=== PATIENT | female | born 1960 | race Caucasian/White ===

== ENCOUNTER 2017-04-19 10:55 | Emergency (ER) | payer MEDICAID, MEDICARE, OTHER ==
[~2017-04-19] VITALS: Ht 167.6 cm; Wt 55.0 kg
[~2017-04-19 10:55] MED LIST: BUSP10TA PO; ENAL10TA PO; IPRA17I INH; LORA-392 PO; PROZ20CA11 PO; SYMB160A INH; TRAM50TA PO; TRAZ50TA12 PO; VENTAER INH
[2017-04-19 10:59] VITALS: BP 106/59; PULSE 112; RESP 17; TEMP 98.4; O2SAT 91
[2017-04-19] MEDS ORDERED: CLIN1CAP6 PO (15:43)
--- NOTE | 2017-04-19 15:45 | PD ---
HPI Chief Complaint: Skin Problem Time Seen by Provider: 14:01 Travel History International Travel<30 days: No Contact w/Intl Traveler<30days: No Traveled to known affect area: No History of Present Illness HPI 56-year-old female presents emergency department for evaluation of facial laceration. Patient reports she tripped and fell this morning around 7 AM falling to the floor hitting her chin on a piece of furniture. She denies loss of consciousness. She is not anticoagulated. She reports pain only in the soft tissue of the laceration. She has no bony facial tenderness. No malocclusion. No cervical spine tenderness. No headache. PFSH Past Medical History Arthritis: Yes Asthma: Yes Autoimmune Disease: No Blood Disorders: No Anxiety: Yes Depression: No Heart Rhythm Problems: No Cancer: No Cardiovascular Problems: Yes High Cholesterol: No Chemotherapy: No Chest Pain: No Congestive Heart Failure: No COPD: No Cerebrovascular Accident: No Diabetes: No Diminished Hearing: No Endocrine: No GERD: No Genitourinary: No Headaches: Yes Hepatitis: No Hiatal Hernia: No Hypertension: Yes Immune Disorder: No Kidney Stones: No Medical other: Yes (HX SILICONE GRANULOMAS (BREASTS)/ HIPS) Musculoskeletal: Yes (ARTHRITIS, ASEPTIC NECROSIS HIPS) Neurologic: No Psychiatric: Yes (DEPRESSION, ANXIETY) Reproductive: No Respiratory: Yes (COPD) Migraines: No Radiation Therapy: No Renal Failure: No Seizures: No Sickle Cell Disease: No Sleep Apnea: No Thyroid Disease: No Ulcer: No Menopausal: Yes Past Surgical History Abdominal Surgery: No AICD: No Arteriovenous Shunt: No Body Medical Devices: BREASTS Cardiac Surgery: No Ear Surgery: Yes Endocrine Surgery: No Eye Surgery: No Genitourinary Surgery: No Gynecologic Surgery: Yes Insulin Pump: No Joint Replacement: Yes (LEFT HIP & Right Hip) Oral Surgery: Yes (TONSILLECTOMY) Pacemaker: No Thoracic Surgery: Yes (BILATERAL RADICAL MASTECTOMY/ IMPLANTS) Tonsillectomy: Yes Other Surgery: Yes (SEVERAL RECONSTRUCTIONS OF BREAST) Social History Alcohol Use: Yes (DAILY) Tobacco Use: Yes Substance Use: Yes (marijuana) Allergies-Medications (Allergen,Severity, Reaction): Coded Allergies: Fish Containing Products (Unverified Allergy, Severe, swelling, 02/23/17) penicillin G (Unverified Allergy, Severe, RASH, SWELLING,DIFFICULTY BREATHING, 02/23/17) Reported Meds & Prescriptions Reported Meds & Active Scripts Active Clindamycin (Clindamycin HCl) 300 Mg Cap 300 Mg PO TID 7 Days Ventolin Hfa 18 GM Inh (Albuterol Sulfate) 90 Mcg/Act Aer 2 Puff INH Q6H PRN Symbicort Inh (Budesonide/Formoterol Fumarate) 160-4.5 Mcg/Act Aero 2 Puff INH Q12HR Atrovent HFA 12.9 GM Inh (Ipratropium [place]) 17 Mcg/Act Aer 2 Puff INH TID Prozac (Fluoxetine HCl) 20 Mg Cap 20 Mg PO DAILY Trazodone (Trazodone HCl) 50 Mg Tab 50 Mg PO HS Buspirone (Buspirone HCl) 10 Mg Tab 10 Mg PO BID Ativan (Lorazepam) 0.5 Mg Tab 0.5 Mg PO DAILY PRN Enalapril (Enalapril Maleate) 10 Mg Tab 10 Mg PO BID Reported Tramadol (Tramadol HCl) 50 Mg Tab 50 Mg PO Q4H PRN Review of Systems Except as stated in HPI: all other systems reviewed are Neg Physical Exam Narrative GENERAL: [Alert well-appearing female in no acute distress.] SKIN: Focused skin assessment warm/dry. 7 cm laceration right lower face HEAD: Atraumatic. Normocephalic. EYES: Pupils equal and round. No scleral icterus. No injection or drainage. EOMs intact ENT: No nasal bleeding or discharge. Mucous membranes pink and moist. NECK: Trachea midline. No JVD. No cervical midline tenderness. CARDIOVASCULAR: Regular rate and rhythm. No murmur appreciated. RESPIRATORY: No accessory muscle use. Clear to auscultation. Breath sounds equal bilaterally. GASTROINTESTINAL: Abdomen soft, non-tender, nondistended. Hepatic and splenic margins not palpable. MUSCULOSKELETAL: No obvious deformities. No clubbing. No cyanosis. No edema. NEUROLOGICAL: Awake and alert. No obvious cranial nerve deficits. Motor grossly within normal limits. Normal speech. PSYCHIATRIC: Appropriate mood and affect; insight and judgment normal. Data Data Last Documented VS Vital Signs Date Time Temp Pulse Resp B/P (MAP) Pulse Ox O2 Delivery O2 Flow Rate FiO2 04/19/17 10:59 98.4 112 17 106/59 (75) 91 MDM Medical Decision Making Medical Screen Exam Complete: Yes Emergency Medical Condition: Yes Differential Diagnosis facial laceration, unlikely ICH, unlikely facial bone fx Narrative Course 56 -year-old female presents emergency department for evaluation of facial laceration. Patient reports she tripped and fell this morning around 7 AM falling to the floor hitting her chin on a piece of furniture. She denies loss of consciousness. She is not anticoagulated. She reports pain only in the soft tissue of the laceration. She has no bony facial tenderness. No malocclusion. No cervical spine tenderness. No headache. She has a normal neurologic exam. CT scans were offered for which patient declined. She was made fully aware of the risks of missed injuries which include intracranial hemorrhage or facial bone fracture or cervical spine fracture which could lead to permanent disability and/or . She still opts for no CT scans. She has a a 7 cm laceration to the right lower aspect of the face involving the chin. Laceration repair performed. Patient advised to follow up with PCP for recheck in 2 days. Procedures Procedure Narrative LACERATION LOCATION: Facial right lower chin LENGTH: 7 cm NUMBER OF STITCHES/ARON: 9 REPAIR: The area of the laceration was prepped with Betadine and sterilely draped. The laceration was infiltrated with 1% lidocaine. The wound was copiously irrigated and explored without evidence of foreign body, tendon injury or neurovascular injury. The wound was closed using 6-0 Ethilon. This was a single layer repair. A sterile dressing was applied. The patient was advised to keep the dressing clean and dry. Patient tolerated the procedure well. Diagnosis Primary Impression: Facial laceration Qualified Codes: S01.81XA - Laceration without foreign body of other part of head, initial encounter Referrals: Primary Care Physician Additional Instructions: Sutures need to be removed in 7 days. Follow-up with her primary doctor for recheck. Return to emergency department if he developed new or worsening symptoms such as severe increasing pain, headache, nausea/vomiting, numbness or tingling in the extremities Scripts Clindamycin (Clindamycin) 300 Mg Cap 300 MG PO TID for Infection for 7 Days, CAP 0 Refills Prov: Elba Roth 04/19/17 Disposition: 01 DISCHARGE HOME Condition: Stable Elba Roth Apr 19, 2017 15:45
== END 2017-04-19 16:06 | disposition home or self-care (01) ==
LOC: NEPD 10:55
DX: S01.81XA Laceration without foreign body of other part of head, initial encounter (principal); I10 Essential (primary) hypertension; Z72.0 Tobacco use; Z87.39 Personal history of other diseases of the musculoskeletal system and connective tissue; Z87.09 Personal history of other diseases of the respiratory system; Z86.59 Personal history of other mental and behavioral disorders; Z86.79 Personal history of other diseases of the circulatory system; W01.190A Fall on same level from slipping, tripping and stumbling with subsequent striking against furniture, initial encounter
CPT/HCPCS: 12014

== ENCOUNTER 2017-04-28 11:39 | Emergency (ER) | payer MEDICAID ==
[~2017-04-28] VITALS: Ht 167.6 cm; Wt 55.0 kg
[~2017-04-28 11:39] MED LIST changes: +CLIN1CAP6 PO
[2017-04-28 11:41] VITALS: BP 108/75; PULSE 119; RESP 20; TEMP 98.7; O2SAT 96
--- NOTE | 2017-04-28 12:04 | PD ---
HPI Chief Complaint: Wound/Suture/Staple Re-Check Time Seen by Provider: 12:02 Travel History International Travel<30 days: No Contact w/Intl Traveler<30days: No Traveled to known affect area: No History of Present Illness HPI 56-year-old female presents to emergency department requesting suture removal from laceration to her chin that occurred last Wednesday. Sutures were placed last Wednesday. Denies drainage from the wound site. She denies fever, vomiting. No known aggravating or relieving factors. Symptoms are mild in severity. Has no other medical complaints. Allergies to fish continue products and penicillin. Patient's heart rate is elevated in the ER and she denies chest pain, shortness of breath. Says her heart rate is elevated because she is currently withdrawing from Xanax. States she changed PCPs and they took her off the Xanax. Patient is jittery and says she is always jittery. Patient also smells of alcohol. She has no other medical complaints. No other modifying factors or associated signs and symptoms. PFSH Past Medical History Arthritis: Yes Asthma: Yes Autoimmune Disease: No Blood Disorders: No Anxiety: Yes Depression: No Heart Rhythm Problems: No Cancer: No Cardiovascular Problems: Yes High Cholesterol: No Chemotherapy: No Chest Pain: No Congestive Heart Failure: No COPD: No Cerebrovascular Accident: No Diabetes: No Diminished Hearing: No Endocrine: No GERD: No Genitourinary: No Headaches: Yes Hepatitis: No Hiatal Hernia: No Hypertension: Yes Immune Disorder: No Kidney Stones: No Musculoskeletal: Yes (ARTHRITIS, ASEPTIC NECROSIS HIPS) Neurologic: No Psychiatric: Yes (DEPRESSION, ANXIETY) Reproductive: No Respiratory: Yes (COPD) Migraines: No Radiation Therapy: No Renal Failure: No Seizures: No Sickle Cell Disease: No Sleep Apnea: No Thyroid Disease: No Ulcer: No Menopausal: Yes Past Surgical History Abdominal Surgery: No AICD: No Arteriovenous Shunt: No Body Medical Devices: BREASTS Cardiac Surgery: No Ear Surgery: Yes Endocrine Surgery: No Eye Surgery: No Genitourinary Surgery: No Gynecologic Surgery: Yes Insulin Pump: No Joint Replacement: Yes (LEFT HIP & Right Hip) Oral Surgery: Yes (TONSILLECTOMY) Pacemaker: No Thoracic Surgery: Yes (BILATERAL RADICAL MASTECTOMY/ IMPLANTS) Tonsillectomy: Yes Other Surgery: Yes (SEVERAL RECONSTRUCTIONS OF BREAST) Social History Alcohol Use: Yes (DAILY) Tobacco Use: Yes Substance Use: Yes (marijuana) Allergies-Medications (Allergen,Severity, Reaction): Coded Allergies: Fish Containing Products (Unverified Allergy, Severe, swelling, 04/28/17) penicillin G (Unverified Allergy, Severe, RASH, SWELLING,DIFFICULTY BREATHING, 04/28/17) Reported Meds & Prescriptions Reported Meds & Active Scripts Active Clindamycin (Clindamycin HCl) 300 Mg Cap 300 Mg PO TID 7 Days Ventolin Hfa 18 GM Inh (Albuterol Sulfate) 90 Mcg/Act Aer 2 Puff INH Q6H PRN Symbicort Inh (Budesonide/Formoterol Fumarate) 160-4.5 Mcg/Act Aero 2 Puff INH Q12HR Atrovent HFA 12.9 GM Inh (Ipratropium [place]) 17 Mcg/Act Aer 2 Puff INH TID Prozac (Fluoxetine HCl) 20 Mg Cap 20 Mg PO DAILY Trazodone (Trazodone HCl) 50 Mg Tab 50 Mg PO HS Buspirone (Buspirone HCl) 10 Mg Tab 10 Mg PO BID Ativan (Lorazepam) 0.5 Mg Tab 0.5 Mg PO DAILY PRN Enalapril (Enalapril Maleate) 10 Mg Tab 10 Mg PO BID Reported Tramadol (Tramadol HCl) 50 Mg Tab 50 Mg PO Q4H PRN Review of Systems Except as stated in HPI: all other systems reviewed are Neg Physical Exam Narrative GENERAL: Well-nourished, well-developed female patient, in no acute distress; jittery, smells of EtOH; afebrile, nontoxic-appearing SKIN: Warm and dry. Right chin area with laceration that is well approximated and sutures intact; without erythema, edema, drainage. No signs of infection. HEAD: Atraumatic. Normocephalic. EYES: Pupils equal and round. No scleral icterus. No injection or drainage. ENT: Mucosa pink and moist. Airway patent. NECK: Trachea midline. CARDIOVASCULAR: Regular rate. RESPIRATORY: No accessory muscle use. GASTROINTESTINAL: Flat. MUSCULOSKELETAL: No obvious deformities. No clubbing. No cyanosis. No edema. NEUROLOGICAL: Awake and alert. Oriented 3. No obvious cranial nerve deficits. Motor grossly within normal limits. Normal speech. PSYCHIATRIC: Appropriate mood and affect; insight and judgment normal. Data Data Last Documented VS Vital Signs Date Time Temp Pulse Resp B/P (MAP) Pulse Ox O2 Delivery O2 Flow Rate FiO2 04/28/17 11:41 98.7 119 20 108/75 (86) 96 Room Air Orders Orders Ed Discharge Order (04/28/17 12:02) MDM Medical Decision Making Medical Screen Exam Complete: Yes Emergency Medical Condition: Yes Medical Record Reviewed: Yes Differential Diagnosis Counter for suture removal, medical clearance, wound recheck Narrative Course 56-year-old female presents for encounter for suture removal from her chin. Sutures were placed last Wednesday. No signs of infection. Sutures removed. Patient tolerated well. Patient's heart rate is elevated and she is jittery. She says she has recently been taken off Xanax and is always jittery. She denies chest pain or shortness of breath. Heart rate recheck is approximately 100-110bpm. The patient also smells of EtOH. Patient's heart rate was also elevated at 112bpm on April 19 when she was seen here. I feel her elevated heart rate is a social issue and patient is stable for discharge. Patient ambulated on her own from the emergency department. Instructed patient to follow up with primary care provider. Patient verbalizes understanding and agreement with treatment plan. Patient is medically cleared and stable for discharge. Discussed reasons to return to the emergency department. Patient agrees with treatment plan. The patients vital signs are stable and the patient is stable for outpatient follow-up and treatment. Patient discharged home, stable and in no acute distress. Diagnosis Primary Impression: Encounter for removal of sutures Referrals: Primary Care Physician Patient Instructions: General Instructions, Stitches Removal (ED) Additional Instructions: Keep area clean and dry Vaseline or Aquaphor as needed for continued wound care Follow up with primary care provider Return to the emergency department immediately for worsening of symptoms Med/Other Pt SpecificInfo: No Meds Exist/No RX given Disposition: 01 DISCHARGE HOME Condition: Stable Yuki Sotelo Apr 28, 2017 12:04
== END 2017-04-28 12:30 | disposition home or self-care (01) ==
LOC: NEPK 11:39
DX: Z48.02 Encounter for removal of sutures (principal)
CPT/HCPCS: 99281

== ENCOUNTER → 2017-06-17 | Outpatient (CLI) | payer MEDICAID ==
[~2017-06-17] MED LIST changes: -CLIN1CAP6 PO; +CLIN300C5 PO
--- NOTE | 2017-06-17 16:19 | RADRPT ---
EXAM DATE/TIME: 06/17/2017 13:28 [facility] COMPARISON: No previous studies available for comparison. INDICATIONS : Increase in shortness of breath in the last few weeks. MEDICAL HISTORY : Chronic obstructive pulmonary disease. asthma SURGICAL HISTORY : None. ENCOUNTER: Initial ACUITY: 2 weeks PAIN SCORE: 0/10 LOCATION: Bilateral chest FINDINGS: PA and lateral views of the chest demonstrate the lungs to be symmetrically aerated without evidence of mass, infiltrate or effusion. The cardiomediastinal contours are unremarkable. Osseous structure s are intact. CONCLUSION: 1. No acute cardiopulmonary disease. Haim Lopez MD on June 17, 2017 at 16:17 Board Certified Radiologist. This report was verified electronically.
--- NOTE | 2017-06-24 09:23 | RSPPFT ---
DATE OF PROCEDURE: 06/17/17 COMMENTS: Spirometry with FVC of 2.7, FEV1 of 1.3, FEV1/FVC ratio at 47%. A non-significant response to acutely inhaled bronchodilator noted. Slow vital capacity is 80% of predicted. TLC is 100%. Diffusion capacity is 49%. IMPRESSION: 1. Moderately severe airways obstruction. 2. No evidence of airways restriction. 3. Moderate reduction in diffusion capacity. 4. Non-significant response to inhaled bronchodilator.
== END ==
LOC: HRSP 12:24
PROVIDERS: ATTEND Internal Medicine Sleep Medicine
DX: R06.89 Other abnormalities of breathing (principal)
CPT/HCPCS: 71020; 94060; 94620; 94726; 94729

== ENCOUNTER 2017-07-28 07:08 | Inpatient (IN) | payer MEDICAID ==
[~2017-07-28] VITALS: Ht 167.6 cm; Wt 60.9 kg
[2017-07-28] VITALS (7 sets, daily range): BP systolic 112–160; BP diastolic 75–90; PULSE 92–122; RESP 17–32; TEMP 96.1–98.6; O2SAT 84–97
[2017-07-28] MEDS ORDERED: HYDR-3133 PO (07:19)
[2017-07-28] MEDS ORDERED: HYDR12.57 PO (07:19)
--- NOTE | 2017-07-28 07:22 | PD ---
HPI Chief Complaint: Respiratory Distress Time Seen by Provider: 07:15 Travel History International Travel<30 days: No Contact w/Intl Traveler<30days: No Traveled to known affect area: No History of Present Illness HPI patient called 911 due to 2 days of sob, wheezing, not improving with inhalers, patient is active smoker 1/3ppd, received albuterolx2 and solumedrol 125 by ems en route. LOCATION:n/a QUALITY:sob SEVERITY:moderate to severe TIMING: worsened overnight DURATION:2 days CONTACTS: no sick contacts MODIFYING FACTORS: walking, any exertion or activitiy makes it worse ASSOCIATED SYMPTOMS:denies fever/prod cough/n/v/d/cp/abdpain/backpain. pcp:francesca QURESHI Past Medical History Arthritis: Yes Asthma: Yes Autoimmune Disease: No Blood Disorders: No Anxiety: Yes Depression: No Heart Rhythm Problems: No Cancer: No Cardiovascular Problems: Yes High Cholesterol: No Chemotherapy: No Chest Pain: No Congestive Heart Failure: No COPD: No Cerebrovascular Accident: No Diabetes: No Diminished Hearing: No Endocrine: No GERD: No Genitourinary: No Headaches: Yes Hepatitis: No Hiatal Hernia: No Hypertension: Yes Immune Disorder: No Kidney Stones: No Musculoskeletal: Yes (ARTHRITIS, ASEPTIC NECROSIS HIPS) Neurologic: No Psychiatric: Yes (DEPRESSION, ANXIETY) Reproductive: No Respiratory: Yes (COPD) Migraines: No Radiation Therapy: No Renal Failure: No Seizures: No Sickle Cell Disease: No Sleep Apnea: No Thyroid Disease: No Ulcer: No Menopausal: Yes Past Surgical History Abdominal Surgery: No AICD: No Arteriovenous Shunt: No Body Medical Devices: BREASTS Cardiac Surgery: No Ear Surgery: Yes Endocrine Surgery: No Eye Surgery: No Genitourinary Surgery: No Gynecologic Surgery: Yes Insulin Pump: No Joint Replacement: Yes (LEFT HIP & Right Hip) Oral Surgery: Yes (TONSILLECTOMY) Pacemaker: No Thoracic Surgery: Yes (BILATERAL RADICAL MASTECTOMY/ IMPLANTS) Tonsillectomy: Yes Other Surgery: Yes (SEVERAL RECONSTRUCTIONS OF BREAST) Social History Alcohol Use: Yes (DAILY) Tobacco Use: Yes Substance Use: Yes (marijuana) Allergies-Medications (Allergen,Severity, Reaction): Coded Allergies: Fish Containing Products (Unverified Allergy, Severe, swelling, 07/28/17) penicillin G (Unverified Allergy, Severe, RASH, SWELLING,DIFFICULTY BREATHING, 07/28/17) Reported Meds & Prescriptions Reported Meds & Active Scripts Active Ventolin Hfa 18 GM Inh (Albuterol Sulfate) 90 Mcg/Act Aer 2 Puff INH Q6H PRN Symbicort Inh (Budesonide/Formoterol Fumarate) 160-4.5 Mcg/Act Aero 2 Puff INH Q12HR Atrovent HFA 12.9 GM Inh (Ipratropium [place]) 17 Mcg/Act Aer 2 Puff INH TID Buspirone (Buspirone HCl) 10 Mg Tab 10 Mg PO BID Enalapril (Enalapril Maleate) 10 Mg Tab 10 Mg PO BID Review of Systems General / Constitutional: No: Fever Eyes: No: Visual changes HENT: No: Headaches Cardiovascular: No: Chest Pain or Discomfort Respiratory: Positive: Shortness of Breath, Wheezing Gastrointestinal: No: Abdominal Pain Genitourinary: No: Dysuria Musculoskeletal: No: Pain Skin: No Rash Neurologic: No: Weakness Psychiatric: No: Depression Endocrine: No: Polydipsia Hematologic/Lymphatic: No: Easy Bruising Physical Exam Narrative GENERAL: Well-nourished, well-developed patient in mod resp distress. SKIN: Warm and dry. HEAD: Atraumatic. Normocephalic. EYES: Pupils equal and round. No scleral icterus. No injection or drainage. ENT: No nasal bleeding or discharge. Mucous membranes pink and moist. NECK: Trachea midline. No JVD. CARDIOVASCULAR: Regular rate and rhythm. no rubs or gallops RESPIRATORY: suprasternal accessory muscle use. wheezing bilaterally and decreased, tripoding, tachypneic GASTROINTESTINAL: Abdomen soft, non-tender, nondistended. No rebound or guarding MUSCULOSKELETAL: Extremities without clubbing, cyanosis, or edema. No obvious deformities. NEUROLOGICAL: Awake and alert. No obvious cranial nerve deficits. Motor grossly within normal limits. Five out of 5 muscle strength in the arms and legs. Normal speech. PSYCHIATRIC: Appropriate mood and affect; insight and judgment normal. Data Data Last Documented VS Orders Orders Complete Blood Count With Diff (07/28/17 07:16) Comprehensive Metabolic Panel (07/28/17 07:16) B-Type Natriuretic Peptide (07/28/17 07:16) Act Partial Throm Time (Ptt) (07/28/17 07:16) Prothrombin Time / Inr (Pt) (07/28/17 07:16) Troponin I (07/28/17 07:16) Influenzae A/B Antigen (07/28/17 07:16) Iv Access Insert/Monitor (07/28/17 07:16) Electrocardiogram (07/28/17 07:16) Ecg Monitoring (07/28/17 07:16) Oximetry (07/28/17 07:16) Oxygen Administration (07/28/17 07:16) Chest, Single Ap (07/28/17 07:16) Sodium Chloride 0.9% Flush (Ns Flush) (07/28/17 07:30) Albuterol-Ipratropium Neb (Duoneb Neb) (07/28/17 07:30) Magnesium Sulfate 1 Gm Premix (Magnesium (07/28/17 07:30) Lorazepam Inj (Ativan Inj) (07/28/17 07:30) Levofloxacin 750 Mg Premix Inj (Levaquin (07/28/17 09:30) Sodium Chlorid 0.9% 500 Ml Inj (Ns 500 M (07/28/17 09:30) Arterial Blood Gas (Abg) (07/28/17 ) Admit Order (Ed Use Only) (07/28/17 12:09) Labs Laboratory Tests Test 07/28/17 07:20 White Blood Count 12.1 TH/MM3 Red Blood Count 3.19 MIL/MM3 Hemoglobin 10.9 GM/DL Hematocrit 31.8 % Mean Corpuscular Volume 99.8 FL Mean Corpuscular Hemoglobin 34.1 PG Mean Corpuscular Hemoglobin Concent 34.1 % Red Cell Distribution Width 19.8 % Platelet Count 290 TH/MM3 Mean Platelet Volume 6.5 FL Neutrophils (%) (Auto) 86.4 % Lymphocytes (%) (Auto) 6.8 % Monocytes (%) (Auto) 6.4 % Eosinophils (%) (Auto) 0.0 % Basophils (%) (Auto) 0.4 % Neutrophils # (Auto) 10.4 TH/MM3 Lymphocytes # (Auto) 0.8 TH/MM3 Monocytes # (Auto) 0.8 TH/MM3 Eosinophils # (Auto) 0.0 TH/MM3 Basophils # (Auto) 0.0 TH/MM3 CBC Comment AUTO DIFF Differential Comment AUTO DIFF CONFIRMED Platelet Estimate NORMAL Platelet Morphology Comment NORMAL Polychromasia 2.0 % Stomatocytes 1+ Red Cell Morphology Comment Prothrombin Time 10.3 SEC Prothromb Time International Ratio 1.0 RATIO Activated Partial Thromboplast Time 23.5 SEC Blood Urea Nitrogen 8 MG/DL Creatinine 1.08 MG/DL Random Glucose 155 MG/DL Total Protein 6.2 GM/DL Albumin 3.3 GM/DL Calcium Level 8.7 MG/DL Alkaline Phosphatase 124 U/L Aspartate Amino Transf (AST/SGOT) 54 U/L Alanine Aminotransferase (ALT/SGPT) 42 U/L Total Bilirubin 1.8 MG/DL Sodium Level 119 MEQ/L Potassium Level 3.2 MEQ/L Chloride Level 77 MEQ/L Carbon Dioxide Level 25.1 MEQ/L Anion Gap 17 MEQ/L Estimat Glomerular Filtration Rate 52 ML/MIN Troponin I LESS THAN 0.02 NG/ML B-Type Natriuretic Peptide 27 PG/ML MDM Medical Decision Making Medical Screen Exam Complete: Yes Emergency Medical Condition: Yes Medical Record Reviewed: Yes Differential Diagnosis COPD exacerbation versus pneumonia versus pneumothorax versus pulm edema Narrative Course leukocytosis, minor anemia 05/10....cxr c/w rml infiltrate.....low sodium of 119 , patient is not confused or obtunded Critical Care Narrative CRITICAL CARE NOTE: With evaluation of the patient, labs, EKG, receipt of radiologic studies, administration of medications, reevaluation the patient and discussion of the patient with the admitting physicians, the total critical care time was [30] minutes. Time to perform other separately billable procedures was not included in the critical care time. Diagnosis Primary Impression: COPD exacerbation Additional Impressions: Hyponatremia RML pneumonia Qualified Codes: J18.1 - Lobar pneumonia, unspecified organism Scripts Lorazepam (Ativan) 1 Mg Tab 1 MG PO Q8H Y for ANXIETY AND/OR AGITATION for 7 Days, #21 TAB 0 Refills Prov: Darin Bryan MD R1 08/08/17 Fluoxetine (Fluoxetine) 20 Mg Capsule 40 MG PO DAILY, #30 CAP Prov: Darin Bryan MD R1 08/08/17 Oxygen tank (Oxygen tank) 1 Ea Tank LITER DARBY.CANULA CONTINUOUS for HYPOXEMIA PREVENTION, #2 Oxygen Concentrator Portable Gaseous 2 L/min via Nasal Cannula Continuous For 99 months Prov: Mikayla Guerrero MD R2 08/07/17 Nebulizer (Nebulizer) 1 Mis Mis EA .ROUTE DIRECTED for Breathing Treatment, #1 0 Refills Prov: Mikayla Guerrero MD R2 08/01/17 Dallas Cruz MD Jul 28, 2017 07:22
[2017-07-28] MEDS ORDERED: LORazepam 2 MG/ML VIAL IV PUSH ONE (07:30)
[2017-07-28] MEDS ORDERED: RESP: ALBUTEROL 2.5 MG/IPRATROPIUM 0.5 MG NEB (SCH) INH ONE (07:30)
[2017-07-28] MEDS ORDERED: MAGNESIUM SULFATE 1 GM PREMIX 100 ML IV ONE (07:30)
[2017-07-28] MEDS ORDERED: SODIUM CHLORIDE 0.9% FLUSH 10 ML FLUSH IVF PRN (07:30)
[2017-07-28 07:44] LABS: AUTOMATED NEUTROPHIL # 10.4 TH/MM3 (1.8-7.7); BASOPHIL % 0.4 % (0.0-2.0); HEMATOCRIT 31.8 % (35.0-46.0); HEMOGLOBIN 10.9 GM/DL (11.6-15.3); LYMPH % 6.8 % (9.0-44.0); LYMPHOCYTE # 0.8 TH/MM3 (1.0-4.8); MEAN CELL VOLUME 99.8 FL (80.0-100.0); MEAN CORPUSCULAR HEMOGLOBIN 34.1 PG (27.0-34.0); MEAN CORPUSCULAR HGB CONC 34.1 % (32.0-36.0); MEAN PLATELET VOLUME 6.5 FL (7.0-11.0); MONO % 6.4 % (0.0-8.0); MONOCYTE # 0.8 TH/MM3 (0-0.9); NEUT % 86.4 % (16.0-70.0); PLATELET COUNT 290 TH/MM3 (150-450); RED BLOOD COUNT 3.19 MIL/MM3 (4.00-5.30); RED CELL DISTRIBUTION WIDTH 19.8 % (11.6-17.2); WHITE BLOOD COUNT 12.1 TH/MM3 (4.0-11.0)
[2017-07-28 07:54] LABS: PROTHROMBIN TIME - PATIENT 10.3 SEC (9.8-11.6)
--- NOTE | 2017-07-28 08:07 | RADRPT ---
EXAM DATE/TIME: 07/28/2017 07:46 [facility] COMPARISON: CHEST PA & LAT, June 17, 2017, 13:28. INDICATIONS : Short of breath with wheezing, weakness. MEDICAL HISTORY : None. SURGICAL HISTORY : None. ENCOUNTER: Initial ACUITY: 2 days PAIN SCORE: 0/10 LOCATION: Bilateral chest FINDINGS: There is slight asymmetric parenchymal opacity in the right middle lobe which may reflect developing infiltrate. No evidence of effusion. Cardiomediastinal contours are stable and satisfactory. CONCLUSION: Right middle lobe infiltrate Clovis Cooper MD on July 28, 2017 at 8:03 Board Certified Radiologist. This report was verified electronically.
[2017-07-28 08:21] LABS: ALBUMIN 3.3 GM/DL (3.4-5.0); ALT (GPT) 42 U/L (10-53); AST (GOT) 54 U/L (15-37); BICARBONATE 25.1 MEQ/L (21.0-32.0); BLOOD UREA NITROGEN 8 MG/DL (7-18); CALCIUM 8.7 MG/DL (8.5-10.1); CHLORIDE 77 MEQ/L (98-107); CREATININE 1.08 MG/DL (0.50-1.00); GLOMERULAR FILTRATION RATE 52 ML/MIN (>89); GLUCOSE,RANDOM 155 MG/DL (74-106)
[2017-07-28 08:22] LABS: ALKALINE PHOSPHATASE 124 U/L (45-117); SODIUM (NA) 119 MEQ/L (136-145); TOTAL BILIRUBIN ADULT 1.8 MG/DL (0.2-1.0); TOTAL PROTEIN 6.2 GM/DL (6.4-8.2); TROPONIN I LESS THAN 0.02 NG/ML (0.02-0.05)
[2017-07-28 08:27] LABS: STOMATOCYTES 1+ (NORMAL)
[2017-07-28] MEDS ORDERED: SODIUM CHLORID 0.9% 500 ML INJ 500 ML IV ONE (09:30)
[2017-07-28] MEDS ORDERED: LEVOFLOXACIN 750 MG PREMIX INJ 150 ML IV ONE (09:30)
[2017-07-28] MEDS ORDERED: ALBUTEROL SULFATE 90 MCG/ACT HFA 18 GM INHALER INH PRN (12:45)
[2017-07-28] MEDS ORDERED: LORazepam 2 MG/ML VIAL IV PUSH PRN (12:45)
[2017-07-28] MEDS: BUDESONIDE-FORMOTEROL 160/4.5 MCG INHALER INH SCH ×2 (12:45→21:38)
[2017-07-28] MEDS ORDERED: FLUMAZENIL 0.5 MG/5 ML VIAL IV PUSH PRN (12:45)
--- NOTE | 2017-07-28 12:54 | EKG ---
Date Performed: 07/28/2017 Time Performed: 07:20:55 PTAGE: 56 years EKG: SINUS TACHYCARDIA POSSIBLE INFERIOR MYOCARDIAL INFARCTION ABNORMAL RHYTHM ECG NO PREVIOUS TRACING DOCTOR: Kalyan Tello Interpretating Date/Time 07/28/2017 12:53:26
[2017-07-28] MEDS ORDERED: SODIUM CHLORIDE 0.9% FLUSH 10 ML FLUSH IV FLUSH PRN ×4 (13:00→15:30)
--- NOTE | 2017-07-28 13:13 | HHI.HP ---
HPI Service Family Medicine Primary Care Physician Unknown Admission Diagnosis COPD EXACERBATION/RML PNA/HYPONATREMIA Diagnoses: Chief Complaint: SOB International Travel<30 Days: No Contact w/Intl Traveler<30days: No Known Affected Area: No History of Present Illness Ms Bauer is a 56YO female seen in the [facility] w/PMHx of HTN, tobacco and alcohol abuse, and COPD who presents by ambulance after being found down by a neighbor (time down unknown) today after alcohol intake last night and arrives short of breath and with CP. She reports a squeezing type of pressure or pain in her lower chest and stomach described as 10/10 on pain scale. She reports dry heaving and emesis since yesterday without blood or bile. Pt usually drinks 1/2 gallon vodka every 5 days and has been doing this for years. She reports seizures from alcohol withdrawal in the past with the last one being 2 days ago. Other times she says she just passes out. She reports losing consciousness in the past. She reports no loss of continence last night/this morning, but has in the past. Pt hasn't eaten in 4 days and can't stand the thought of food and did not sleep last night. Has had diarrhea since yesterday. Denies having had an NE in the past. She is disabled, lives in [place] and walks with a walker. Denies DVT pain. (Darin Bryan MD R1) Review of Systems Constitutional: COMPLAINS OF: Dizziness (with standing up), DENIES: Chills Eyes: DENIES: Blurred vision, Diplopia, Double Vision Ears, nose, mouth, throat: COMPLAINS OF: Nasal discharge, Running Nose, DENIES : Hearing loss, Oral lesions, Throat pain, Sinus Pain Respiratory: COMPLAINS OF: Cough, Sputum production (white), Shortness of breath, DENIES: Wheezing Cardiovascular: COMPLAINS OF: Chest pain, Syncope, DENIES: Palpitations Gastrointestinal: COMPLAINS OF: Abdominal pain, Diarrhea, Nausea, Vomiting, DENIES: Black stools, Bloody stools, Constipation Genitourinary: COMPLAINS OF: Urinary frequency, Urgency, Nocturia (x4 at night) , DENIES: Urinary incontinence, Dysuria Musculoskeletal: DENIES: Joint pain, Muscle aches Integumentary: DENIES: Pruritus, Rash Hematologic/lymphatic: DENIES: Lymphadenopathy Neurologic: COMPLAINS OF: Headache, Paresthesias (in feet), Poor Balance Psychiatric: COMPLAINS OF: Anxiety, Depression, DENIES: Suicidal Ideation, Homicidal Ideation, Delusions (Darin Bryan MD R1) Past Family Social History Past Medical History alcohol abuse COPD Past Surgical History 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 bilateral hip replacement Reported Medications Reported Meds & Active Scripts Active Ventolin Hfa 18 GM Inh (Albuterol Sulfate) 90 Mcg/Act Aer 2 Puff INH Q6H PRN Symbicort Inh (Budesonide/Formoterol Fumarate) 160-4.5 Mcg/Act Aero 2 Puff INH Q12HR Atrovent HFA 12.9 GM Inh (Ipratropium [place]) 17 Mcg/Act Aer 2 Puff INH TID Prozac (Fluoxetine HCl) 20 Mg Cap 20 Mg PO DAILY Trazodone (Trazodone HCl) 50 Mg Tab 50 Mg PO HS Buspirone (Buspirone HCl) 10 Mg Tab 10 Mg PO BID Enalapril (Enalapril Maleate) 10 Mg Tab 10 Mg PO BID Reported Hydroxyzine HCl 25 Mg Tab 25 Mg PO TID PRN Hydrochlorothiazide 12.5 Mg Cap 12.5 Mg PO DAILY Tramadol (Tramadol HCl) 50 Mg Tab 50 Mg PO Q4H PRN (Darin Bryan MD R1) Allergies: Coded Allergies: Fish Containing Products (Unverified Allergy, Severe, swelling, 07/28/17) penicillin G (Unverified Allergy, Severe, RASH, SWELLING,DIFFICULTY BREATHING, 07/28/17) Active Ordered Medications Current Medications Medications (Trade) Dose Ordered Sig/Castillo Route Start Time Stop Time Status Last Admin (NS Flush) 2 ml UNSCH PRN IVF 07/28/17 07:30 07/28/17 07:37 Family History Mother and Father both healthy; hasn't spoken to them in 40 years Social History Tobacco - approx 3 cigarettes a day for 39 years (has cut down drastically) EtOH - 1/2 gallon vodka every 5 days Drugs - none lives alone but has friends visiting from [place] now (Darin Bryan MD R1) Physical Exam Vital Signs Vital Signs Date Time Temp Pulse Resp B/P (MAP) Pulse Ox O2 Delivery O2 Flow Rate FiO2 1/17/18 12:06 95 20 130/84 (99) 97 07/28/17 07:41 117 24 97 Nasal Cannula 2.00 07/28/17 07:31 95 Nasal Cannula 2.00 07/28/17 07:10 97.7 122 32 137/80 (99) 84 Physical Exam GENERAL: This is a disheveled, ill-appearing female with overt tremors and dense , coarse facial and upper body hair in moderate discomfort. SKIN: No rashes, ecchymoses or lesions. Cool and dry. HEAD: Atraumatic. Normocephalic. EYES: Pupils equal round and reactive. Extraocular motions intact. No scleral icterus. No injection or drainage. ENT: Nose without bleeding, drainage or rhinorrhea. Throat without erythema, tonsillar hypertrophy or exudate. Uvula midline. Airway patent. Dry mucous membranes with angular chelitis. NECK: Trachea midline. No lymphadenopathy. Supple, nontender, no meningeal signs. CARDIOVASCULAR: Regular rate and rhythm without murmur, gallop, or rub. RESPIRATORY: Clear to auscultation. Breath sounds equal bilaterally. No wheezes , rales, or rhonchi. GASTROINTESTINAL: Abdomen soft, non-tender, nondistended. No hepato-splenomegaly , or palpable masses. No guarding. Hypoactive BS. MUSCULOSKELETAL: Extremities without clubbing, cyanosis, or edema. No joint tenderness, effusion, or edema noted. No calf tenderness. Negative Homans sign bilaterally. NEUROLOGICAL: Awake and alert. Cranial nerves II through XII intact. Motor and sensory grossly within normal limits. Normal speech. Laboratory Laboratory Tests Test 07/28/17 07:20 07/28/17 12:30 White Blood Count 12.1 Red Blood Count 3.19 Hemoglobin 10.9 Hematocrit 31.8 Mean Corpuscular Volume 99.8 Mean Corpuscular Hemoglobin 34.1 Mean Corpuscular Hemoglobin Concent 34.1 Red Cell Distribution Width 19.8 Platelet Count 290 Mean Platelet Volume 6.5 Neutrophils (%) (Auto) 86.4 Lymphocytes (%) (Auto) 6.8 Monocytes (%) (Auto) 6.4 Eosinophils (%) (Auto) 0.0 Basophils (%) (Auto) 0.4 Neutrophils # (Auto) 10.4 Lymphocytes # (Auto) 0.8 Monocytes # (Auto) 0.8 Eosinophils # (Auto) 0.0 Basophils # (Auto) 0.0 CBC Comment AUTO DIFF Differential Comment AUTO DIFF CONFIRMED Platelet Estimate NORMAL Platelet Morphology Comment NORMAL Polychromasia 2.0 Stomatocytes 1+ Red Cell Morphology Comment Prothrombin Time 10.3 Prothromb Time International Ratio 1.0 Activated Partial Thromboplast Time 23.5 Blood Urea Nitrogen 8 Creatinine 1.08 Random Glucose 155 Total Protein 6.2 Albumin 3.3 Calcium Level 8.7 Alkaline Phosphatase 124 Aspartate Amino Transf (AST/SGOT) 54 Alanine Aminotransferase (ALT/SGPT) 42 Total Bilirubin 1.8 Sodium Level 119 Potassium Level 3.2 Chloride Level 77 Carbon Dioxide Level 25.1 Anion Gap 17 Estimat Glomerular Filtration Rate 52 Troponin I LESS THAN 0.02 B-Type Natriuretic Peptide 27 Blood Gas Puncture Site RT RADIAL Blood Gas Patient Temperature 98.6 Blood Gas HCO3 30 Blood Gas Base Excess 6.6 Blood Gas Oxygen Saturation 93 Arterial Blood pH 7.54 Arterial Blood Partial Pressure CO2 35 Arterial Blood Partial Pressure O2 75 Arterial Blood Oxygen Content 12.4 Arterial Blood Carboxyhemoglobin 2.5 Arterial Blood Methemoglobin 0.5 Blood Gas Hemoglobin 9.4 Oxygen Delivery Device NASAL CANNULA Blood Gas Liter Flow 2 Date/Time Source Procedure Growth Status 07/28/17 07:20 Nasal Washing Influenza Types A,B Antigen (CIERA) - Final NEGATIVE FOR FLU A AND B ANTIGEN.... Complete (Darin Bryan MD R1) Result Diagram: 07/28/1720 07/28/17 0720 Imaging Last Impressions Chest X-Ray 07/28/17 0716 Signed Impressions: Service Date/Time: Friday, July 28, 2017 07:46 - CONCLUSION: Right middle lobe infiltrate Clovis Cooper MD (Darin Bryan MD R1) Septic Shock Reassessment Septic shock perfusion: reassessment completed (Darin Bryan MD R1) Caprini VTE Risk Assessment Caprini VTE Risk Assessment: No/Low Risk (score <= 1) Caprini Risk Assessment Model Point Value = 1 Point Value = 2 Point Value = 3 Point Value = 5 Age 41-60 Minor surgery BMI > 25 kg/m2 Swollen legs Varicose veins or History of unexplained or recurrent spontaneous Oral contraceptives or hormone replacement Sepsis (< 1 month) Serious lung disease, including pneumonia (< 1 month) Abnormal pulmonary function Acute myocardial infarction Congestive heart failure (< 1 month) History of inflammatory bowel disease Medical patient at bed rest Age 61-74 Arthroscopic surgery Major open surgery (> 45 min) Laparoscopic surgery (> 45 min) Malignancy Confined to bed (> 72 hours) Immobilizing plaster cast Central venous access Age >= 75 History of VTE Family history of VTE Factor V Leiden Prothrombin [id number] Lupus anticoagulant Anticardiolipin antibodies Elevated serum homocysteine Heparin-induced thrombocytopenia Other congenital or acquired thrombophilia Stroke (< 1 month) Elective arthroplasty Hip, pelvis, or leg fracture Acute spinal cord injury (< 1 month) Prophylaxis Regimen Total Risk Factor Score Risk Level Prophylaxis Regimen 0-1 Low Early ambulation 2 Moderate Order ONE of the following: *Sequential Compression Device (SCD) *Heparin 5000 units SQ BID 3-4 Higher Order ONE of the following medications: *Heparin 5000 units SQ TID *Enoxaparin/Lovenox 40 mg SQ daily (WT < 150 kg, CrCl > 30 mL/min) *Enoxaparin/Lovenox 30 mg SQ daily (WT < 150 kg, CrCl > 10-29 mL/min) *Enoxaparin/Lovenox 30 mg SQ BID (WT < 150 kg, CrCl > 30 mL/min) AND/OR *Sequential Compression Device (SCD) 5 or more Highest Order ONE of the following medications: *Heparin 5000 units SQ TID (Preferred with Epidurals) *Enoxaparin/Lovenox 40 mg SQ daily (WT < 150 kg, CrCl > 30 mL/min) *Enoxaparin/Lovenox 30 mg SQ daily (WT < 150 kg, CrCl > 10-29 mL/min) *Enoxaparin/Lovenox 30 mg SQ BID (WT < 150 kg, CrCl > 30 mL/min) AND *Sequential Compression Device (SCD) (Darin Bryan MD R1) Assessment and Plan Assessment and Plan 56YO female w/PMHx HTN, COPD, tobacco and EtOH abuse presents with SOB and with CP after being found down by a neighbor after a night of drinking, 2 days of nonbloody, nonbilious emesis/dry heaves and decreased PO intake for 4 days. Dx: metabolic acidosis due to EtOH intoxication and subsequent dehydration with COPD exacerbation vs aspiration PNA and possible cardiac ischemia. Pt meets sepsis criteria on admit with WBC 12.1, tachycardia 122, RR 32, pulse ox 84% RA. Pt seen and dw Eko 1. Chest Pain - R/o ACS - EKG x2 -- both show ischemia vs infarct - BNP wnl, Trops <0.02 x2 - Total CK wnl - TSH wnl - Lipase 123 - UDS pending - ASA 325mg PO - Metoprolol 12.5mg BID - Nitroglycerin 0.4mg SL q5min PRN CP - Morphine 2mg IV push q30min PRN CP - Mag pending - ECHO ordered 2. Metabolic acidosis - anion gap 17 on admit 0720 -> 11 @ 1330 - ABG w/mixed repiratory compensation of MA w/pH 7.53/pCO2 35.3/pO2 75.0/HCO3- 29.7 - Follow with BMP q4h - hyponatremia 119 -> 121 - NS IVF bolus in ED followed by gentle fluids w/NS IVF @ 75ml/hr to guard against central pontine myelinosis - hypokalemia 3.2 -> 3.3 - KCl 20meq PO ordered - UDS pending - Salicylates, acetaminophen negative, EtOH <3 3. SEPSIS likely 2/2 RML PNA - consider aspiration vs COPD exacerbation vs combo - CXR w/RML infiltrate, pt found down by neighbor after night of drinking - Pt with extensive smoking hx, currently only smoking 3 cogs/day - IV Levaquin once in ED - Clindamycin 600mg IV q8h - Duonebs q4h while awake - Continue home albuterol, atrovent and symbicort inhalers - IS 4. EtOH withdrawal w/hx of withdrawal seizures - Pt with tremors on exam - WA protocol - Rally pack--thiamine, folate, mv - Zofran 4mg IV q6h 5. Depression/Axiety - Continue home dose Fluoxetine 20mg/day and Busipirone 10mg daily - Hold Hydroxyzine 25mg TID for now - Hold home Trazodone 50mg hs for now 6. HTN - Continue home elanapril 10mg daily - Hold HCTZ 12.5mg daily due to hypokalemia - Clonidine 0.1 mg PO q6h PRN 7. FEN/GI/PPx Fluids: as above augmented with PO Electrolytes: monitor and replete as necessary Nutrition: clear liquid diet for now GI: protonix 40mg PPx: Heparin 5000 units q8h Tylenol 650mg PO q4h Pain control: - Hold home Tramadol 50mg q4h for now - Morphine as above Bowel regimen Code Status FULL CODE (Darin Bryan MD R1) Attending Attestation The patient has been seen and examined. The chart and all resident notes have been reviewed. I agree that inpatient care is appropriate and that a two midnight stay is expected for the reasons documented in the resident history and physical. I have discussed this with the resident and certify the resident s order for inpatient admission. (Hellen Ndiaye MD) Problem List: (1) Sepsis ICD Codes: A41.9 - Sepsis, unspecified organism (2) Chest pain at rest ICD Codes: R07.9 - Chest pain, unspecified (3) Increased anion gap metabolic acidosis ICD Codes: E87.2 - Acidosis (4) RML pneumonia ICD Codes: J18.1 - Lobar pneumonia, unspecified organism Status: Acute (5) Alcohol withdrawal ICD Codes: F10.239 - Alcohol dependence with withdrawal, unspecified Status: Acute (6) COPD exacerbation ICD Codes: J44.1 - Chronic obstructive pulmonary disease with (acute) exacerbation Status: Acute (7) Alcohol abuse ICD Codes: F10.10 - Alcohol abuse, uncomplicated Status: Acute (8) Tobacco abuse ICD Codes: Z72.0 - Tobacco abuse Status: Chronic (9) Hypertension ICD Codes: I10 - Hypertension Status: Chronic (10) Depression ICD Codes: F32.9 - Major depressive disorder, single episode, unspecified (11) FEN/GI/PPx (Darin Bryan MD R1) Physician Certification 2 Midnight Certification Type: Admission for Inpatient Services Order for Inpatient Services The services are ordered in accordance with Medicare regulations or non- Medicare payer requirements, as applicable. In the case of services not specified as inpatient-only, they are appropriately provided as inpatient services in accordance with the 2-midnight benchmark. Estimated LOS (days): 2 days is the estimated time the patient will need to remain in the hospital, assuming treatment plan goals are met and no additional complications. Post-Hospital Plan: Not yet determined (Darin Bryan MD R1) Problem Qualifiers (1) RML pneumonia: Qualified Codes: J18.1 - Lobar pneumonia, unspecified organism Darin Bryan MD R1 Jul 28, 2017 13:13 Hellen Ndiaye MD Jul 29, 2017 14:32
[2017-07-28] MEDS: FLUoxetine HCL 20 MG CAP PO SCH (13:19)
[2017-07-28] MEDS: LORazepam 2 MG/ML VIAL IV PUSH PRN ×4 (13:20→23:13)
[2017-07-28] MEDS ORDERED: NALOXONE HCL 0.4 MG/ML AMP IV PUSH PRN (13:30)
[2017-07-28] MEDS ORDERED: MAGNESIUM HYDROXIDE SUSP 30 ML CUP PO PRN (13:30)
[2017-07-28] MEDS ORDERED: LACTULOSE SYRUP 20 GM/30 ML CUP PO PRN (13:30)
[2017-07-28] MEDS ORDERED: SENNOSIDES 8.6 MG TAB PO PRN (13:30)
[2017-07-28] MEDS ORDERED: cloNIDine HCL 0.1 MG TAB PO PRN (13:30)
[2017-07-28] MEDS ORDERED: ONDANSETRON HCL 4 MG/2 ML VIAL IVP PRN (13:30)
[2017-07-28] MEDS ORDERED: BISACODYL 10 MG SUPP RECTAL PRN (13:30)
[2017-07-28] MEDS: TIOTROPIUM BROMIDE 18 MCG INH INH SCH (14:00)
[2017-07-28 14:39] LABS: LIPASE 123 U/L (73-393)
[2017-07-28 14:42] LABS: TROPONIN I LESS THAN 0.02 NG/ML (0.02-0.05)
[2017-07-28] MEDS: SODIUM CHLOR 0.9% 1000 ML INJ 1,000 ML IV SCH (14:45)
[2017-07-28] MEDS: THIAMINE INJ 100 MG in SODIUM CHLORIDE 0.9% INJ 100 ML IV SCH (14:46)
[2017-07-28 15:24] LABS: BICARBONATE 30.7 MEQ/L (21.0-32.0); CALCIUM 8.1 MG/DL (8.5-10.1); CREATININE 0.83 MG/DL (0.50-1.00)
[2017-07-28] MEDS ORDERED: ASPIRIN 325 MG TAB PO SCH (15:30)
[2017-07-28] MEDS ORDERED: NITROGLYCERIN 0.4 MG SL 25 TABS/BTL SL PRN (15:30)
[2017-07-28] MEDS ORDERED: MORPHINE SULFATE 2 MG/ML INJ IV PUSH PRN (15:30)
[2017-07-28] MEDS: HEPARIN SODIUM - SQ 10,000 UNITS/ML VIAL SQ SCH ×2 (16:27→20:19)
[2017-07-28] MEDS: CLINDAMYCIN 600 MG/NS PREMIX 50 ML IV SCH (18:37)
[2017-07-28] MEDS: MULTIVITAMIN INJ 10 ML, FOLIC ACID INJ 1 MG in SODIUM CHLORID 0.9% 500 ML INJ 500 ML IV SCH (18:45)
[2017-07-28] MEDS ORDERED: POTASSIUM CHLORIDE 20 MEQ CONTROLLED RELEASE TAB PO ONE (19:45)
[2017-07-28] MEDS: METOPROLOL TARTRATE 25 MG TAB PO SCH (20:16)
[2017-07-28] MEDS: busPIRone HCL 10 MG TAB PO SCH (20:16)
[2017-07-28] MEDS: ENALAPRIL MALEATE 10 MG TAB PO SCH (20:17)
[2017-07-28] MEDS: DOCUSATE SODIUM 50 MG/SENNA 8.6 MG TAB PO SCH (20:20)
[2017-07-28] MEDS: SODIUM CHLORIDE 0.9% FLUSH 10 ML FLUSH IV FLUSH SCH (20:20)
[2017-07-28 20:58] LABS: BICARBONATE 27.3 MEQ/L (21.0-32.0); CALCIUM 7.6 MG/DL (8.5-10.1); CREATININE 0.97 MG/DL (0.50-1.00)
[2017-07-28 20:59] LABS: TROPONIN I LESS THAN 0.02 NG/ML (0.02-0.05)
[2017-07-28] MEDS ORDERED: ATORVASTATIN 20 MG TAB PO SCH (21:00)
[2017-07-28] MEDS ORDERED: SODIUM CHLORIDE 0.9% FLUSH 10 ML FLUSH IV FLUSH SCH ×3 (21:00)
[2017-07-28] MEDS ORDERED: POTASSIUM CHLORIDE 10 MEQ CAP PO ONE (21:15)
[2017-07-29] VITALS (9 sets, daily range): BP systolic 106–122; BP diastolic 63–79; PULSE 80–100; RESP 17–20; TEMP 96.5–98.2; O2SAT 94–99
[2017-07-29 01:58] LABS: BICARBONATE 28.6 MEQ/L (21.0-32.0); CALCIUM 7.6 MG/DL (8.5-10.1); CREATININE 0.79 MG/DL (0.50-1.00); MAGNESIUM 1.8 MG/DL (1.5-2.5)
[2017-07-29] MEDS: CLINDAMYCIN 600 MG/NS PREMIX 50 ML IV SCH (02:26)
[2017-07-29] MEDS: SODIUM CHLOR 0.9% 1000 ML INJ 1,000 ML IV SCH ×3 (02:29→21:23)
[2017-07-29] MEDS ORDERED: SODIUM CHLORIDE 1 GRAM TAB PO ONE (02:45)
[2017-07-29] MEDS ORDERED: POTASSIUM CHLORIDE 10 MEQ CONTROLLED RELEASE TAB PO ONE (03:00)
[2017-07-29 03:54] LABS: AUTOMATED NEUTROPHIL # 10.1 TH/MM3 (1.8-7.7); BASOPHIL % 0.3 % (0.0-2.0); HEMOGLOBIN 8.6 GM/DL (11.6-15.3); LYMPH % 6.6 % (9.0-44.0); LYMPHOCYTE # 0.8 TH/MM3 (1.0-4.8); MEAN CELL VOLUME 99.6 FL (80.0-100.0); MEAN CORPUSCULAR HEMOGLOBIN 34.2 PG (27.0-34.0); MEAN CORPUSCULAR HGB CONC 34.3 % (32.0-36.0); MEAN PLATELET VOLUME 6.6 FL (7.0-11.0); MONO % 6.7 % (0.0-8.0); MONOCYTE # 0.8 TH/MM3 (0-0.9); NEUT % 86.4 % (16.0-70.0); PLATELET COUNT 240 TH/MM3 (150-450); RED BLOOD COUNT 2.51 MIL/MM3 (4.00-5.30); RED CELL DISTRIBUTION WIDTH 19.1 % (11.6-17.2); WHITE BLOOD COUNT 11.7 TH/MM3 (4.0-11.0)
[2017-07-29 04:37] LABS: BILIRUBIN, URINE NEG (NEG); BLOOD, URINE NEG (NEG); CALCIUM OXALATE CRYSTALS,URINE RARE /hpf; GLUCOSE,URINE 150 mg/dL (NEG); HYALINE CAST, URINE 27 /lpf (RARE); KETONE, URINE TRACE mg/dL (NEG); MUCUS URINE MANY /lpf (OCC); NITRITE,URINE NEG (NEG); SQUAMOUS EPITHELIAL CELL URINE <1 /hpf (0-5); URINE COLOR YELLOW (YELLW/STRAW); URINE LEUKOCYTE ESTERASE NEG (NEG)
[2017-07-29 04:50] LABS: ALBUMIN 2.5 GM/DL (3.4-5.0); ALKALINE PHOSPHATASE 81 U/L (45-117); ALT (GPT) 32 U/L (10-53); AST (GOT) 30 U/L (15-37); BICARBONATE 29.3 MEQ/L (21.0-32.0); BLOOD UREA NITROGEN 11 MG/DL (7-18); CALCIUM 7.6 MG/DL (8.5-10.1); CHLORIDE 83 MEQ/L (98-107); CREATININE 0.65 MG/DL (0.50-1.00); GLOMERULAR FILTRATION RATE 94 ML/MIN (>89); GLUCOSE,RANDOM 112 MG/DL (74-106); TOTAL PROTEIN 5.1 GM/DL (6.4-8.2)
[2017-07-29 04:59] LABS: SODIUM (NA) 121 MEQ/L (136-145)
[2017-07-29] MEDS: HEPARIN SODIUM - SQ 10,000 UNITS/ML VIAL SQ SCH ×3 (05:09→21:21)
[2017-07-29 06:49] LABS: TARGET CELLS 1+ (NORMAL)
[2017-07-29] MEDS: BUDESONIDE-FORMOTEROL 160/4.5 MCG INHALER INH SCH ×2 (09:00→21:24)
[2017-07-29] MEDS: SODIUM CHLORIDE 0.9% FLUSH 10 ML FLUSH IV FLUSH SCH ×2 (09:00→21:00)
[2017-07-29] MEDS: TIOTROPIUM BROMIDE 18 MCG INH INH SCH (09:00)
[2017-07-29] MEDS: RESP: ALBUTEROL 2.5 MG/IPRATROPIUM 0.5 MG NEB (SCH) NEB ×4 (09:12→21:59)
[2017-07-29] MEDS: METOPROLOL TARTRATE 25 MG TAB PO SCH (09:23)
[2017-07-29] MEDS: FLUoxetine HCL 20 MG CAP PO SCH (09:23)
[2017-07-29] MEDS: busPIRone HCL 10 MG TAB PO SCH ×2 (09:23→21:21)
[2017-07-29] MEDS: DOCUSATE SODIUM 50 MG/SENNA 8.6 MG TAB PO SCH ×2 (09:24→21:20)
[2017-07-29] MEDS: ENALAPRIL MALEATE 10 MG TAB PO SCH ×2 (09:24→21:20)
[2017-07-29] MEDS: PANTOPRAZOLE SOD 40 MG DELAYED RELEASE TAB PO SCH (09:31)
[2017-07-29] MEDS: LORazepam 2 MG TAB PO PRN ×5 (09:31→21:20)
[2017-07-29] MEDS: predniSONE 10 MG TAB PO SCH ×2 (11:15→21:20)
[2017-07-29 11:31] LABS: AUTOMATED NEUTROPHIL # 9.7 TH/MM3 (1.8-7.7); HEMATOCRIT 24.6 % (35.0-46.0); HEMOGLOBIN 8.5 GM/DL (11.6-15.3); LYMPH % 8.4 % (9.0-44.0); MEAN CELL VOLUME 100.2 FL (80.0-100.0); MEAN CORPUSCULAR HEMOGLOBIN 34.6 PG (27.0-34.0); MEAN CORPUSCULAR HGB CONC 34.6 % (32.0-36.0); MEAN PLATELET VOLUME 6.6 FL (7.0-11.0); MONO % 5.7 % (0.0-8.0); MONOCYTE # 0.6 TH/MM3 (0-0.9); NEUT % 85.9 % (16.0-70.0); PLATELET COUNT 240 TH/MM3 (150-450); RED BLOOD COUNT 2.45 MIL/MM3 (4.00-5.30); RED CELL DISTRIBUTION WIDTH 19.3 % (11.6-17.2); WHITE BLOOD COUNT 11.3 TH/MM3 (4.0-11.0)
[2017-07-29] MEDS ORDERED: LEVOFLOXACIN 750 MG PREMIX INJ 150 ML IV SCH (12:00)
[2017-07-29 12:16] LABS: ALBUMIN 2.4 GM/DL (3.4-5.0); ALKALINE PHOSPHATASE 75 U/L (45-117); ALT (GPT) 28 U/L (10-53); AST (GOT) 33 U/L (15-37); BICARBONATE 28.3 MEQ/L (21.0-32.0); BLOOD UREA NITROGEN 10 MG/DL (7-18); CALCIUM 7.5 MG/DL (8.5-10.1); CHLORIDE 87 MEQ/L (98-107); CREATININE 0.68 MG/DL (0.50-1.00); GLOMERULAR FILTRATION RATE 90 ML/MIN (>89); GLUCOSE,RANDOM 98 MG/DL (74-106); TOTAL BILIRUBIN ADULT 0.7 MG/DL (0.2-1.0); TOTAL PROTEIN 4.9 GM/DL (6.4-8.2)
[2017-07-29 12:20] LABS: SODIUM (NA) 124 MEQ/L (136-145)
[2017-07-29] MEDS ORDERED: metroNIDAZOLE 500 MG INJ 100 ML IV SCH (13:00)
--- NOTE | 2017-07-29 14:43 | HHI.FPPN ---
Subjective Subjective Patient seen and examined with the resident team this am. Case reviewed and discussed Please refer to resident H&P for further details regarding HPI, ROS, PMH, SurgHx , Fh and SocHx. In summary, patient is a 56yoF presenting with progressive shortness of breath and chest pain. Patient is a chronic smoker with alcohol dependence, not on home oxygen She was found down prior to being brought the hospital, noted to be hypoxic in the 80s on arrival Patient is seen this am, reporting some improvement from admission No further chest pain Breathing is better Patient did complain of brown diarrhea earlier this am. [facility] Objective Objective Last Impressions Chest X-Ray 07/28/17 0716 Signed Impressions: Service Date/Time: Friday, July 28, 2017 07:46 - CONCLUSION: Right middle lobe infiltrate Clovis Cooper MD Laboratory Tests - Abnormals Test 07/28/17 20:10 07/29/17 00:31 07/29/17 03:40 07/29/17 04:10 Random Glucose 140 MG/DL 158 MG/DL 112 MG/DL Calcium Level 7.6 MG/DL 7.6 MG/DL 7.6 MG/DL Sodium Level 121 MEQ/L 121 MEQ/L 121 MEQ/L Potassium Level 3.1 MEQ/L 3.2 MEQ/L Chloride Level 81 MEQ/L 83 MEQ/L 83 MEQ/L Estimat Glomerular Filtration Rate 59 ML/MIN 75 ML/MIN Troponin I LESS THAN 0.02 NG/ML White Blood Count 11.7 TH/MM3 Red Blood Count 2.51 MIL/MM3 Hemoglobin 8.6 GM/DL Hematocrit 25.0 % Mean Corpuscular Hemoglobin 34.2 PG Red Cell Distribution Width 19.1 % Mean Platelet Volume 6.6 FL Neutrophils (%) (Auto) 86.4 % Lymphocytes (%) (Auto) 6.6 % Neutrophils # (Auto) 10.1 TH/MM3 Lymphocytes # (Auto) 0.8 TH/MM3 Target Cells 1+ Total Protein 5.1 GM/DL Albumin 2.5 GM/DL Urine Glucose (UA) 150 mg/dL Urine Ketones TRACE mg/dL Urine Calcium Oxalate Crystals RARE /hpf Urine Mucus MANY /lpf Urine Cannabinoids Screen POS Test 07/29/17 11:04 07/29/17 14:24 White Blood Count 11.3 TH/MM3 Red Blood Count 2.45 MIL/MM3 Hemoglobin 8.5 GM/DL Hematocrit 24.6 % Mean Corpuscular Volume 100.2 FL Mean Corpuscular Hemoglobin 34.6 PG Red Cell Distribution Width 19.3 % Mean Platelet Volume 6.6 FL Neutrophils (%) (Auto) 85.9 % Lymphocytes (%) (Auto) 8.4 % Neutrophils # (Auto) 9.7 TH/MM3 Total Protein 4.9 GM/DL Albumin 2.4 GM/DL Calcium Level 7.5 MG/DL Sodium Level 124 MEQ/L Potassium Level 3.3 MEQ/L Chloride Level 87 MEQ/L Vital Signs 07/28/17 07/28/17 07/28/17 07/29/17 15:52 16:00 20:00 00:00 Temp 96.1 98.6 98.1 Pulse 107 92 90 Resp 17 B/P (MAP) 160/90 (113) 112/75 (87) 118/78 (91) Pulse Ox 93 96 96 07/29/17 07/29/17 07/29/17 07/29/17 04:00 08:00 09:14 11:47 Temp 97.4 97.2 Pulse 80 84 Resp 18 18 B/P (MAP) 108/67 (81) 122/79 (93) Pulse Ox 96 98 98 99 O2 Delivery Nasal Cannula O2 Flow Rate 2.00 FiO2 21 07/29/17 12:00 Temp 98.1 Pulse 83 Resp 20 B/P (MAP) 107/64 (78) Pulse Ox 98 INTAKE & OUTPUT 07/30/17 07:00 Intake Total 650 ml Balance 650 ml Physical exam GENERAL: wdwn female, resting in bed SKIN: Warm and dry. No rashes or lesions. Significant facial hair HEAD: Normocephalic. AT EYES: No scleral icterus. No injection or drainage. ENT: OP clear. MM slightly dry. NC in place at 2.5L NECK: Supple, trachea midline. No JVD or lymphadenopathy. CARDIOVASCULAR: Regular rate and rhythm without audible murmurs, gallops, or rubs. RESPIRATORY: Breath sounds with very poor aeration. Scant R sided crackles, minimal exp wheeze anteriorly. No accessory muscle use. GASTROINTESTINAL: Abdomen soft, non-tender, mildly distended. No rebound, no guarding. Normal active BS MUSCULOSKELETAL: No cyanosis, or edema. There is muscle wasting b/l LE. No calf tenderness. Strength 4/5 bilateral LE. BACK: Nontender without obvious deformity. No CVA tenderness. NEURO: Tremulous from acute alcohol withdrawal. Awake and alert. Oriented x 3. Normal speech. MAEW. Assessment Assessment 56yoF with: Sepsis due to RML PNA, Community-acquired vs aspiration Hypoxia Tachypnea Acute exacerbation of COPD Continued tobacco dependence Anemia, r/o acute blood loss Severe hyponatremia Hypokalemia Acute alcohol withdrawal Leukocytosis Malnutrition with ketoacidosis PLAN PLAN IVF resuscitation Serial BMP Empiric antibiotic therapy (PCN allergy) Sputum culture Legionella, pneumococcal antigen (flu neg) Breathing treatments Steroids Hemoccult Urine electrolytes CIWA-- risk for severe withdrawal Stop SSRI in light of hyponatremia PT, ST consult Patient seen and examined. Case reviewed and discussed Agree with plan of care as discussed with me and documented in the resident note. Hellen Ndiaye MD Jul 29, 2017 14:43
[2017-07-29 15:27] LABS: BICARBONATE 26.1 MEQ/L (21.0-32.0); CALCIUM 7.2 MG/DL (8.5-10.1); CREATININE 0.77 MG/DL (0.50-1.00)
[2017-07-29] MEDS: THIAMINE INJ 100 MG in SODIUM CHLORIDE 0.9% INJ 100 ML IV SCH (15:43)
[2017-07-29 15:53] LABS: CALCIUM-PROTEIN CORRECTED 8.5 MG/DL (8.5-10.1); TOTAL PROTEIN 4.8 GM/DL (6.4-8.2)
[2017-07-29] MEDS: MULTIVITAMIN INJ 10 ML, FOLIC ACID INJ 1 MG in SODIUM CHLORID 0.9% 500 ML INJ 500 ML IV SCH (16:00)
[2017-07-29 16:35] LABS: HEMOGLOBIN A1C 5.3 % (4.3-6.0)
--- NOTE | 2017-07-29 16:35 | ECHRPT ---
Indication: CHEST PAIN/ EKG W ISCHEMIA VS INFARCT CONCLUSIONS Mildly dilated left ventricle. Wall thickness is normal. The left ventricular systolic function is low normal with an estimated ejection fraction in the rang e of 50- 55%. Mitral annular calcification is present. Trace mitral valve regurgitation. BP: 108 / 67 HR: 80 Rhythm: MEASUREMENTS (Male / Female) Normal Values Technical Quality:Good 2D ECHO LV Diastolic Diameter PLAX 5.2 cm 4.2 - 5.9 / 3.9 - 5.3 cm LV Systolic Diameter PLAX 4.0 cm IVS Diastolic Thickness 0.9 cm 0.6 - 1.0 / 0.6 - 0.9 cm LVPW Diastolic Thickness 0.7 cm 0.6 - 1.0 / 0.6 - 0.9 cm LV Relative Wall Thickness 0.3 RV Internal Dim ED PLAX 2.5 cm LA Systolic Diameter LX 3.1 cm 3.0 - 4.0 / 2.7 - 3.8 cm M-MODE Aortic Root Diameter MM 3.7 cm AV Cusp Separation MM 2.3 cm DOPPLER Mitral E Point Velocity 82.4 cm/s Mitral A Point Velocity 86.4 cm/s Mitral E to A Ratio 1.0 TR Peak Velocity 308.0 cm/s TR Peak Gradient 37.9 mmHg FINDINGS LEFT VENTRICLE Mildly dilated left ventricle. Wall thickness is normal. The left ventricular systolic function is low normal with an estimated ejection fraction in the rang e of 50- 55%. RIGHT VENTRICLE Normal right ventricular size and systolic function. LEFT ATRIUM The left atrial size is normal. RIGHT ATRIUM The right atrial size is normal. ATRIAL SEPTUM Normal atrial septal thickness without atrial level shunting by limited color doppler interrogation. AORTA The aortic root and proximal ascending aorta are normal in size on limited imaging. MITRAL VALVE Mitral annular calcification is present. Trace mitral valve regurgitation. AORTIC VALVE Trileaflet aortic valve. No aortic valve stenosis or regurgitation. TRICUSPID VALVE Structurally normal tricuspid valve. No tricuspid valve stenosis or regurgitation. PULMONARY VALVE The pulmonary valve is not well visualized. VESSELS The inferior vena cava is normal in size. PERICARDIUM No pericardial effusion. Shakir Lacey MD (Electronically Signed) Final Date:29 July 2017 16:34
[2017-07-29] MEDS: metroNIDAZOLE 500 MG TAB PO SCH (17:55)
[2017-07-29 18:55] LABS: CALCIUM 7.5 MG/DL (8.5-10.1); CREATININE 0.84 MG/DL (0.50-1.00)
--- NOTE | 2017-07-29 22:17 | EKG ---
Date Performed: 07/28/2017 Time Performed: 21:16:40 PTAGE: 56 years EKG: Sinus rhythm MODERATE INTRAVENTRICULAR CONDUCTION DELAY BORDERLINE ECG PREVIOUS TRACING : 07/28/2017 13.59 Since previous tracing, no significant change noted DOCTOR: Ciro Patel Interpretating Date/Time 07/29/2017 22:17:14
[2017-07-29 22:38] LABS: OSMOLALITY,URINE 413 MOSM/KG (300-1300)
[2017-07-29 22:39] LABS: SODIUM,RANDOM URINE 21 MEQ/L
--- NOTE | 2017-07-29 22:51 | EKG ---
Date Performed: 07/28/2017 Time Performed: 13:59:36 PTAGE: 56 years EKG: Sinus rhythm MODERATE T-WAVE ABNORMALITY, CONSIDER ANTERIOR ISCHEMIA ABNORMAL ECG PREVIOUS TRACING : 07/28/2017 07.20 Compared to previous tracing T wave abnormalities are more prominent DOCTOR: Ciro Patel Interpretating Date/Time 07/29/2017 22:50:55
[2017-07-30] VITALS (7 sets, daily range): BP systolic 108–133; BP diastolic 70–86; PULSE 81–124; RESP 18–19; TEMP 96.4–98.4; O2SAT 93–99
[2017-07-30] MEDS: metroNIDAZOLE 500 MG TAB PO SCH ×3 (01:06→17:24)
[2017-07-30] MEDS: LORazepam 2 MG TAB PO PRN ×6 (01:06→23:54)
[2017-07-30 01:43] LABS: AUTOMATED NEUTROPHIL # 9.2 TH/MM3 (1.8-7.7); BASOPHIL % 0.3 % (0.0-2.0); HEMATOCRIT 24.6 % (35.0-46.0); HEMOGLOBIN 8.5 GM/DL (11.6-15.3); LYMPH % 3.9 % (9.0-44.0); LYMPHOCYTE # 0.4 TH/MM3 (1.0-4.8); MEAN CELL VOLUME 101.3 FL (80.0-100.0); MEAN CORPUSCULAR HEMOGLOBIN 35.1 PG (27.0-34.0); MEAN CORPUSCULAR HGB CONC 34.6 % (32.0-36.0); MEAN PLATELET VOLUME 6.8 FL (7.0-11.0); MONO % 2.7 % (0.0-8.0); MONOCYTE # 0.3 TH/MM3 (0-0.9); NEUT % 93.1 % (16.0-70.0); PLATELET COUNT 230 TH/MM3 (150-450); RED BLOOD COUNT 2.43 MIL/MM3 (4.00-5.30); RED CELL DISTRIBUTION WIDTH 19.3 % (11.6-17.2); WHITE BLOOD COUNT 9.8 TH/MM3 (4.0-11.0)
[2017-07-30 02:06] LABS: ALBUMIN 2.3 GM/DL (3.4-5.0); BICARBONATE 23.1 MEQ/L (21.0-32.0); CALCIUM 7.3 MG/DL (8.5-10.1); CALCIUM-PROTEIN CORRECTED 8.5 MG/DL (8.5-10.1); CREATININE 0.74 MG/DL (0.50-1.00); TOTAL BILIRUBIN ADULT 0.6 MG/DL (0.2-1.0)
[2017-07-30] MEDS: SODIUM CHLOR 0.9% 1000 ML INJ 1,000 ML IV SCH ×4 (05:45→23:54)
[2017-07-30] MEDS: HEPARIN SODIUM - SQ 10,000 UNITS/ML VIAL SQ SCH ×3 (05:46→23:57)
[2017-07-30] MEDS ORDERED: POTASSIUM CHLORIDE 10 MEQ CONTROLLED RELEASE TAB PO ONE (07:30)
[2017-07-30] MEDS: RESP: ALBUTEROL 2.5 MG/IPRATROPIUM 0.5 MG NEB (SCH) NEB ×4 (08:13→21:10)
--- NOTE | 2017-07-30 09:33 | HHI.FPPN ---
Subjective Remarks Ms Bauer had trouble sleeping last night and is shaking/tremulous upon interview today. She feels like she is breathing much better today with duonebs , steroids and abx, but still in acute withdrawal. Denies CP, SOB, N/V/D, and DVT pain, but has had some LE cramping. She does have an appetite and would like some oatmeal this morning and likes Boost/Ensure supplements. (Darin Bryan MD R1) Objective Vitals Vital Signs Date Time Temp Pulse Resp B/P (MAP) Pulse Ox O2 Delivery O2 Flow Rate FiO2 07/30/17 08:17 Nasal Cannula 2.00 07/30/17 08:00 97.4 96 19 127/86 (100) 99 07/30/17 04:28 96.9 124 18 133/76 (95) 93 07/30/17 00:00 98.4 81 18 112/73 (86) 98 07/29/17 22:01 97 Nasal Cannula 2.00 07/29/17 20:00 96.5 100 18 109/63 (78) 94 07/29/17 16:00 98.2 81 18 106/65 (79) 96 07/29/17 12:00 98.1 83 20 107/64 (78) 98 07/29/17 11:47 99 Nasal Cannula 2.00 I/O 07/29/17 07/29/17 07/29/17 07/30/17 07/30/17 07/30/17 07:00 15:00 23:00 07:00 15:00 23:00 Intake Total 2040.2 ml 650 ml 750 ml 1000 ml Output Total 600 ml 300 ml 900 ml Balance 1440.2 ml 650 ml 450 ml 100 ml Intake Oral 480 ml 650 ml 750 ml IV Total 1560.2 ml 1000 ml Output Urine Total 600 ml 300 ml 900 ml # Voids 3 # Bowel Movements 0 3 (Darin Bryan MD R1) Result Diagram: 07/30/1711807/30/17118 Objective Remarks GENERAL: This is a disheveled, ill-appearing anatomically male/gender identifies as female with overt tremors and dense, coarse facial and upper body hair in moderate discomfort. SKIN: No rashes, ecchymoses or lesions. Cool and dry. HEAD: Atraumatic. Normocephalic. EYES: Pupils equal round and reactive. Extraocular motions intact. No scleral icterus. No injection or drainage. ENT: Nose without bleeding, drainage or rhinorrhea. Throat without erythema, tonsillar hypertrophy or exudate. Uvula midline. Airway patent. Dry mucous membranes improving; lips still chapped. NECK: Trachea midline. No lymphadenopathy. Supple, nontender, no meningeal signs. CARDIOVASCULAR: Tachycardic with regular rhythm without murmur, gallop, or rub. RESPIRATORY: Clear to auscultation. Breath sounds equal bilaterally. Mild wheezes anterior but clear in posterior lagos; no rales or rhonchi. Moving air much better today. GASTROINTESTINAL: Abdomen soft, non-tender, nondistended. No hepato-splenomegaly , or palpable masses. No guarding. Hypoactive BS. MUSCULOSKELETAL: Extremities without clubbing, cyanosis, or edema. No joint tenderness, effusion, or edema noted. No calf tenderness. NEUROLOGICAL: Awake and alert. Cranial nerves II through XII intact. Motor and sensory grossly within normal limits. Normal speech. Procedures ECHO 2D Doppler 07/30/17 - Dr Palumbo CONCLUSIONS Mildly dilated left ventricle. Wall thickness is normal. The left ventricular systolic function is low normal with an estimated ejection fraction in the range of 50- 55%. Mitral annular calcification is present. Trace mitral valve regurgitation. (Darin Bryan MD R1) Urinary Catheter: No (Darin Bryan MD R1) A/P Assessment and Plan 56YO female w/PMHx HTN, COPD, tobacco and EtOH abuse presents with SOB and with CP after being found down by a neighbor after a night of drinking, 2 days of nonbloody, nonbilious emesis/dry heaves and decreased PO intake for 4 days. Dx: metabolic acidosis due to EtOH intoxication and subsequent dehydration with COPD exacerbation vs aspiration PNA and possible cardiac ischemia. Pt meets sepsis criteria on admit with WBC 12.1, tachycardia 122, RR 32, pulse ox 84% RA. 07/30: Pt is tremulous/shaking on interview--spoke to nursing about being more aggressive with ativan for withdrawal/CIWA scoring due to prior withdrawal seizures. ST gave [facility] soft/thin liquid diet--added ensure/boost supplement w/ each meal to improve PO and caloric intake. Pt has an appetite which is a reassuring development. Hyponatremia slow to improve and still requiring increased IVF intake @125mls/hr. Mild hypokalemia 3.4 this morning--added 30meq PO KCl to replete. Pt states she is breathing much easier. Legionella neg but pneumococcal antigen positive; WBC 9.8, afebrile, Blood cx NGTD x1 day. Continue PO Flagyl, Levaquin, prednisone, duonebs for breathing, COPD/ aspiration. Will clinically follow and monitor. Pt seen wit Dr Pepper and dw Dr Ndiaye 1. Chest Pain - likely demand ischemia 2/2 chronic EtOH intake complicated by aspiration/COPD exacerbation and subsequent hypoxia now resolved. ACS w/u negative. - R/o ACS - EKG x2 -- both show ischemia vs infarct - BNP wnl, Trops <0.02 x2 - Total CK wnl - TSH wnl - Lipase 123 - UDS positive cannabinoids - DC'd ASA 325mg PO - DC'd Metoprolol 12.5mg BID - DC'd Nitroglycerin 0.4mg SL q5min PRN CP - DC'd Morphine 2mg IV push q30min PRN CP - DC'd atorvastatin 20mg PO daily - Mag wnl - ECHO 07/29: Mild left ventricle dilation, low normal EF: 50-55%, normal septal thickness, annular MV calcification w/trace MV regurg 2. Metabolic acidosis - anion gap 17 and multiple electrolyte abnormalities on admit. AG 10 and wnl 07/30 -- resolved with exception electrolyte abnormalities indicated below. - ABG w/mixed repiratory compensation of MA w/pH 7.53/pCO2 35.3/pO2 75.0/HCO3- 29.7 3. Electrolyte abnormalities: Pt still dizzy when OOB likely 2/2 hyponatremia; OOB with assistance until asymptomatic. - Hyponatremia - 119 on admit -> improved to 126, but 125 this morning - increased NS IVF @125ml/hr; BMP q6h to guard against repleting too quickly; likely chronically depleted 2/2 EtOH abuse; Urine Osmo 413 wnl and Urine random Na 21 wnl suggestive of hypovolemic hyponatremia from dehydration and chronic EtOH use. - hypokalemia resolved 07/29; however 3.4 this morning --> KCl 30meq PO; BMP q6h as above - UDS positive cannabis - Salicylates, acetaminophen negative, EtOH <3 3. SEPSIS likely 2/2 RML PNA - consider aspiration vs COPD exacerbation vs combo -- SEPSIS resolved; however, still treating PNA/COPD exacerbation which is improved. - CXR w/RML infiltrate, pt found down by neighbor after night of drinking - Legionella ag negative but pneumococcal ag positive on 07/30 - Pt with extensive smoking hx, currently only smoking 3 cogs/day - IV Levaquin once in ED - Discontinued Clindamycin 600mg q8h IV - Levaquin 750mg PO daily - Flagyl 500mg PO daily - Prednisone 40mg BID; may taper tomorrow pending clinical improvement - Duonebs q4h while awake - Continue home albuterol, atrovent and symbicort inhalers - IS 4. EtOH withdrawal w/hx of withdrawal seizures -- Acutely withdrawing requiring multiple doses of ativan - Pt with tremors on exam today and tachycardic - CIWA protocol - Rally pack--thiamine, folate, mv - Zofran 4mg IV q6h - Protonix 40mg PO daily 5. Depression/Anxiety - Hold home Fluoxetine 20mg/day due to hyponatremia/hypokalemia - Continue home Busipirone 10mg daily - Hold Hydroxyzine 25mg TID for now - Hold home Trazodone 50mg hs for now 6. HTN - normotensive - Continue home elanapril 10mg daily - Hold HCTZ 12.5mg daily due to hypokalemia - Clonidine 0.1 mg PO q6h PRN if SBP >180 and/or DBP >100 7. FEN/GI/PPx Fluids: as above augmented with PO Electrolytes: monitor and replete as necessary Nutrition: Per ST ok with mechanical soft/thin liquid diet with Boost/Ensure supplement at each meal GI: protonix 40mg PO daily PPx: Heparin 5000 units q8h Tylenol 650mg PO q4h Pain control: Pt with no pain on exam - Hold home Tramadol 50mg q4h for now Bowel regimen Discharge Planning Pending improvement in EtOH withdrawal sxs and hyponatremia. (Darin Bryan MD R1) Attending Attestation patient seen and examined. case reviewed and discussed agree with plan of care as discussed with me and documented in the resident note. (Hellen Ndiaye MD) Problem List: (1) Sepsis ICD Codes: A41.9 - Sepsis, unspecified organism (2) Chest pain at rest ICD Codes: R07.9 - Chest pain, unspecified (3) Increased anion gap metabolic acidosis ICD Codes: E87.2 - Acidosis (4) RML pneumonia ICD Codes: J18.1 - Lobar pneumonia, unspecified organism Status: Acute (5) Alcohol withdrawal ICD Codes: F10.239 - Alcohol dependence with withdrawal, unspecified Status: Acute (6) COPD exacerbation ICD Codes: J44.1 - Chronic obstructive pulmonary disease with (acute) exacerbation Status: Acute (7) Alcohol abuse ICD Codes: F10.10 - Alcohol abuse, uncomplicated Status: Acute (8) Tobacco abuse ICD Codes: Z72.0 - Tobacco abuse Status: Chronic (9) Hypertension ICD Codes: I10 - Hypertension Status: Chronic (10) Depression ICD Codes: F32.9 - Major depressive disorder, single episode, unspecified (11) FEN/GI/PPx (Darin Bryan MD R1) Problem Qualifiers (1) RML pneumonia: Qualified Codes: J18.1 - Lobar pneumonia, unspecified organism Darin Bryan MD R1 Jul 30, 2017 09:33 Hellen Ndiaye MD Aug 02, 2017 16:14
[2017-07-30] MEDS: LORazepam 2 MG/ML VIAL IV PUSH PRN ×2 (09:49→20:16)
[2017-07-30] MEDS: SODIUM CHLORIDE 0.9% FLUSH 10 ML FLUSH IV FLUSH SCH ×2 (09:50→20:21)
[2017-07-30] MEDS: busPIRone HCL 10 MG TAB PO SCH ×2 (09:52→20:17)
[2017-07-30] MEDS: PANTOPRAZOLE SOD 40 MG DELAYED RELEASE TAB PO SCH (09:52)
[2017-07-30] MEDS: DOCUSATE SODIUM 50 MG/SENNA 8.6 MG TAB PO SCH ×2 (09:52→20:17)
[2017-07-30] MEDS: ENALAPRIL MALEATE 10 MG TAB PO SCH ×2 (09:52→20:16)
[2017-07-30] MEDS: predniSONE 10 MG TAB PO SCH ×2 (09:52→20:16)
[2017-07-30] MEDS: BUDESONIDE-FORMOTEROL 160/4.5 MCG INHALER INH SCH ×2 (09:53→20:21)
[2017-07-30] MEDS: LEVOFLOXACIN 750 MG TAB PO SCH (12:37)
[2017-07-30] MEDS: ALBUTEROL SULFATE 90 MCG/ACT HFA 8 GM INHALER INH PRN (14:38)
[2017-07-30] MEDS: FLUoxetine HCL 20 MG CAP PO SCH (15:32)
[2017-07-30] MEDS: TIOTROPIUM BROMIDE 18 MCG INH INH SCH (15:32)
[2017-07-30] MEDS: THIAMINE INJ 100 MG in SODIUM CHLORIDE 0.9% INJ 100 ML IV SCH (15:38)
[2017-07-30] MEDS: MULTIVITAMIN INJ 10 ML, FOLIC ACID INJ 1 MG in SODIUM CHLORID 0.9% 500 ML INJ 500 ML IV SCH (17:24)
[2017-07-30 18:20] LABS: BICARBONATE 22.3 MEQ/L (21.0-32.0); CALCIUM 7.5 MG/DL (8.5-10.1); CREATININE 0.74 MG/DL (0.50-1.00)
[2017-07-30] MEDS: ACETAMINOPHEN 325 MG TAB PO PRN (20:17)
[2017-07-31] VITALS (7 sets, daily range): BP systolic 124–145; BP diastolic 72–92; PULSE 91–156; RESP 20–30; TEMP 95.7–98; O2SAT 94–98
[2017-07-31 00:05] LABS: BICARBONATE 25.4 MEQ/L (21.0-32.0); CALCIUM 7.8 MG/DL (8.5-10.1); CREATININE 0.66 MG/DL (0.50-1.00)
[2017-07-31] MEDS: ALBUTEROL SULFATE 90 MCG/ACT HFA 8 GM INHALER INH PRN ×2 (01:00→08:54)
[2017-07-31] MEDS: LORazepam 2 MG TAB PO PRN ×2 (02:33→23:31)
[2017-07-31] MEDS: metroNIDAZOLE 500 MG TAB PO SCH ×3 (02:33→18:17)
[2017-07-31 04:42] LABS: BICARBONATE 22.2 MEQ/L (21.0-32.0); CALCIUM 7.6 MG/DL (8.5-10.1); CREATININE 0.72 MG/DL (0.50-1.00)
[2017-07-31] MEDS: LORazepam 2 MG/ML VIAL IV PUSH PRN ×6 (05:34→20:31)
[2017-07-31] MEDS: HEPARIN SODIUM - SQ 10,000 UNITS/ML VIAL SQ SCH ×3 (05:37→23:33)
--- NOTE | 2017-07-31 08:05 | HHI.FPPN ---
Subjective Remarks Patient was sitting at the side of the bed, very tremulous. She states that when she wakes up in the morning, she feels a huge king to urinate and does not have time to wait for a nurse to show up. However, she was unable to get herself back into bed. This morning, she denies chest pain or increased shortness of breath. She has mild hallucinations. Objective Vitals Vital Signs Date Time Temp Pulse Resp B/P (MAP) Pulse Ox O2 Delivery O2 Flow Rate FiO2 07/31/17 04:11 96.0 156 20 128/78 (95) 94 07/31/17 00:00 92 07/31/17 00:00 96.6 148 20 145/86 (105) 96 07/30/17 21:17 20 07/30/17 21:11 21 07/30/17 20:00 97.4 103 18 121/74 (90) 99 07/30/17 16:00 96.4 116 19 108/70 (83) 98 07/30/17 12:00 96.7 103 19 125/77 (93) 97 07/30/17 09:00 86 07/30/17 08:17 Nasal Cannula 2.00 I/O 07/30/17 07/30/17 07/30/17 07/31/17 07/31/17 07/31/17 07:00 15:00 23:00 07:00 15:00 23:00 Intake Total 1000 ml 960 ml Output Total 900 ml 900 ml 500 ml Balance 100 ml 60 ml -500 ml Intake Oral 960 ml IV Total 1000 ml Output Urine Total 900 ml 900 ml 500 ml # Bowel Movements 1 Result Diagram: 07/30/17 0119 07/31/17 0400 Objective Remarks GENERAL: This is a disheveled, ill-appearing anatomically male, transgender female with overt tremors and dense, coarse facial and upper body hair in moderate discomfort, extremely tremulous SKIN: No rashes, ecchymoses or lesions. Cool and dry. ENT: Nose without bleeding, drainage or rhinorrhea. Throat without erythema, tonsillar hypertrophy or exudate. Uvula midline. Airway patent. Dry mucous membranes improving; lips still chapped NECK: Trachea midline. No lymphadenopathy. Supple, nontender, no meningeal signs CARDIOVASCULAR: Tachycardic with regular rhythm without murmur, gallop, or rub RESPIRATORY: Clear to auscultation. Breath sounds equal bilaterally. Mild wheezes anterior but clear in posterior lagos; no rales or rhonchi GASTROINTESTINAL: Abdomen soft, non-tender, nondistended. No hepato-splenomegaly , or palpable masses. No guarding. Hypoactive BS MUSCULOSKELETAL: Extremities without clubbing, cyanosis, or edema. No joint tenderness, effusion, or edema noted. No calf tenderness NEUROLOGICAL: Awake and alert. Cranial nerves II through XII intact. Motor and sensory grossly within normal limits. Normal speech Procedures ECHO 2D Doppler 07/30/17 - Dr Palumbo CONCLUSIONS Mildly dilated left ventricle. Wall thickness is normal. The left ventricular systolic function is low normal with an estimated ejection fraction in the range of 50- 55%. Mitral annular calcification is present. Trace mitral valve regurgitation. A/P Assessment and Plan 56YO transgender female w/PMHx HTN, COPD, tobacco and EtOH abuse presented with SOB and with CP after being found down by a neighbor after a night of drinking, 2 days of nonbloody, nonbilious emesis/dry heaves and decreased PO intake for 4 days. Dx: metabolic acidosis due to EtOH intoxication and subsequent dehydration with COPD exacerbation vs aspiration PNA and possible cardiac ischemia. Pt met sepsis criteria on admit with WBC 12.1, tachycardia 122, RR 32 , pulse ox 84% RA. 07/31: Not much change clinically compared to the previous day. Sodium level is stable at 131, potassium within normal limits at 3.6. Patient still very tremulous, requiring IV Ativan. 07/30: Pt is tremulous/shaking on interview--spoke to nursing about being more aggressive with ativan for withdrawal/CIWA scoring due to prior withdrawal seizures. ST gave [facility] soft/thin liquid diet--added ensure/boost supplement w/ each meal to improve PO and caloric intake. Pt has an appetite which is a reassuring development. Hyponatremia slow to improve and still requiring increased IVF intake @125mls/hr. Mild hypokalemia 3.4 this morning--added 30meq PO KCl to replete. Pt states she is breathing much easier. Legionella neg but pneumococcal antigen positive; WBC 9.8, afebrile, Blood cx NGTD x1 day. Continue PO Flagyl, Levaquin, prednisone, duonebs for breathing, COPD/ aspiration. Will clinically follow and monitor. Dw Dr Ndiaye 1. Chest Pain - likely demand ischemia 2/2 chronic EtOH intake complicated by aspiration/COPD exacerbation and subsequent hypoxia now resolved. ACS w/u negative. -ACS rule out complete - EKG x2 -- both show ischemia vs infarct - BNP wnl, Trops <0.02 x2 - Total CK wnl - TSH wnl - Lipase 123 - UDS positive cannabinoids - Mag wnl - ECHO 07/29: Mild left ventricle dilation, low normal EF: 50-55%, normal septal thickness, annular MV calcification w/trace MV regurg 2. Metabolic acidosis - anion gap 17 and multiple electrolyte abnormalities on admit. -- resolved with exception electrolyte abnormalities indicated below. 3. Electrolyte abnormalities: - Hyponatremia * Likely chronically depleted 2/2 EtOH abuse; Urine Osmo 413 wnl and Urine random Na 21 wnl suggestive of hypovolemic hyponatremia from dehydration and chronic EtOH use * Na 119 on admit -> improved to 131 morning - decreased NS IVF to 100ml/hr - do not increase fluids for 24 hours; follow BMP daily * Hypokalemia resolved on 07/30 - UDS positive cannabis - Salicylates, acetaminophen negative, EtOH <3 3. SEPSIS likely 2/2 RML PNA - consider aspiration vs COPD exacerbation vs combo -- SEPSIS resolved; however, still treating PNA/COPD exacerbation which is improved. - CXR w/RML infiltrate, pt found down by neighbor after night of drinking - suspect aspiration PNA - Legionella ag negative but pneumococcal ag positive on 07/30 - Continue Levaquin 750mg PO daily - Continue Flagyl 500mg PO daily - Prednisone 20mg BID; continue taper - Duonebs q4h while awake - Continue home albuterol, atrovent and symbicort inhalers - IS 4. EtOH withdrawal w/hx of withdrawal seizures -- Acutely withdrawing requiring multiple doses of IV Ativan - Pt with tremors on exam today and tachycardic - CIWA protocol - Rally pack--thiamine, folate, mv - Zofran 4mg IV q6h - Protonix 40mg PO daily 5. Depression/Anxiety - Continue home Fluoxetine 20mg/day - Continue home Busipirone 10mg daily - Hold Hydroxyzine 25mg TID for now - Hold home Trazodone 50mg hs for now 6. HTN - normotensive - Continue home elanapril 10mg daily - Hold HCTZ 12.5mg daily due to hypokalemia - Clonidine 0.1 mg PO q6h PRN if SBP >180 and/or DBP >100 7. FEN/GI/PPx Fluids: as above augmented with PO Electrolytes: monitor and replete as necessary Nutrition: Per ST ok with mechanical soft/thin liquid diet with Boost/Ensure supplement at each meal GI: Protonix 40mg PO daily PPx: Heparin 5000 units q8h Tylenol 650mg PO q4h Pain control: Hold home Tramadol 50mg q4h for now; consider restart if patient requests for pain Bowel regimen Discharge Planning Pending improvement in EtOH withdrawal sxs and hyponatremia. Problem List: (1) Sepsis ICD Codes: A41.9 - Sepsis, unspecified organism (2) Chest pain at rest ICD Codes: R07.9 - Chest pain, unspecified (3) Increased anion gap metabolic acidosis ICD Codes: E87.2 - Acidosis (4) RML pneumonia ICD Codes: J18.1 - Lobar pneumonia, unspecified organism Status: Acute (5) Alcohol withdrawal ICD Codes: F10.239 - Alcohol dependence with withdrawal, unspecified Status: Acute (6) COPD exacerbation ICD Codes: J44.1 - Chronic obstructive pulmonary disease with (acute) exacerbation Status: Acute (7) Alcohol abuse ICD Codes: F10.10 - Alcohol abuse, uncomplicated Status: Acute (8) Tobacco abuse ICD Codes: Z72.0 - Tobacco abuse Status: Chronic (9) Hypertension ICD Codes: I10 - Hypertension Status: Chronic (10) Depression ICD Codes: F32.9 - Major depressive disorder, single episode, unspecified (11) FEN/GI/PPx Problem Qualifiers (1) RML pneumonia: Qualified Codes: J18.1 - Lobar pneumonia, unspecified organism Mikayla Guerrero MD R2 Jul 31, 2017 08:05
[2017-07-31] MEDS: SODIUM CHLOR 0.9% 1000 ML INJ 1,000 ML IV SCH ×2 (08:41→20:31)
[2017-07-31] MEDS: busPIRone HCL 10 MG TAB PO SCH ×2 (08:44→19:59)
[2017-07-31] MEDS: FLUoxetine HCL 20 MG CAP PO SCH (08:44)
[2017-07-31] MEDS: ENALAPRIL MALEATE 10 MG TAB PO SCH ×2 (08:45→19:59)
[2017-07-31] MEDS: DOCUSATE SODIUM 50 MG/SENNA 8.6 MG TAB PO SCH ×2 (08:45→19:59)
[2017-07-31] MEDS: PANTOPRAZOLE SOD 40 MG DELAYED RELEASE TAB PO SCH (08:45)
[2017-07-31] MEDS: RESP: ALBUTEROL 2.5 MG/IPRATROPIUM 0.5 MG NEB (SCH) NEB ×4 (08:47→21:02)
[2017-07-31] MEDS: predniSONE 10 MG TAB PO SCH ×2 (08:53→19:59)
[2017-07-31] MEDS: BUDESONIDE-FORMOTEROL 160/4.5 MCG INHALER INH SCH ×2 (08:53→19:59)
[2017-07-31] MEDS: TIOTROPIUM BROMIDE 18 MCG INH INH SCH (08:54)
[2017-07-31] MEDS: SODIUM CHLORIDE 0.9% FLUSH 10 ML FLUSH IV FLUSH SCH ×2 (08:54→20:01)
[2017-07-31] MEDS: LEVOFLOXACIN 750 MG TAB PO SCH (12:16)
[2017-07-31] MEDS: MULTIVITAMIN INJ 10 ML, FOLIC ACID INJ 1 MG in SODIUM CHLORID 0.9% 500 ML INJ 500 ML IV SCH ×2 (15:27→15:53)
[2017-07-31 19:20] LABS: BICARBONATE 23.9 MEQ/L (21.0-32.0); CALCIUM 7.9 MG/DL (8.5-10.1); CREATININE 0.68 MG/DL (0.50-1.00)
[2017-08-01] VITALS (7 sets, daily range): BP systolic 127–142; BP diastolic 78–93; PULSE 51–106; RESP 19–22; TEMP 96.1–97.8; O2SAT 91–98
[2017-08-01] MEDS: metroNIDAZOLE 500 MG TAB PO SCH ×3 (02:56→15:23)
[2017-08-01] MEDS: LORazepam 2 MG/ML VIAL IV PUSH PRN ×3 (02:56→09:03)
[2017-08-01 03:59] LABS: AUTOMATED NEUTROPHIL # 4.9 TH/MM3 (1.8-7.7); BASOPHIL % 0.3 % (0.0-2.0); HEMOGLOBIN 7.6 GM/DL (11.6-15.3); LYMPHOCYTE # 0.5 TH/MM3 (1.0-4.8); MEAN CELL VOLUME 102.9 FL (80.0-100.0); MEAN CORPUSCULAR HEMOGLOBIN 34.2 PG (27.0-34.0); MEAN CORPUSCULAR HGB CONC 33.2 % (32.0-36.0); MEAN PLATELET VOLUME 6.6 FL (7.0-11.0); MONO % 6.7 % (0.0-8.0); MONOCYTE # 0.4 TH/MM3 (0-0.9); PLATELET COUNT 254 TH/MM3 (150-450); RED BLOOD COUNT 2.23 MIL/MM3 (4.00-5.30); RED CELL DISTRIBUTION WIDTH 20.7 % (11.6-17.2); WHITE BLOOD COUNT 5.8 TH/MM3 (4.0-11.0)
[2017-08-01 04:22] LABS: ALBUMIN 2.2 GM/DL (3.4-5.0); CALCIUM 7.4 MG/DL (8.5-10.1); CALCIUM-PROTEIN CORRECTED 8.8 MG/DL (8.5-10.1); CREATININE 0.64 MG/DL (0.50-1.00); TOTAL BILIRUBIN ADULT 0.3 MG/DL (0.2-1.0); TOTAL PROTEIN 4.7 GM/DL (6.4-8.2)
[2017-08-01] MEDS: HEPARIN SODIUM - SQ 10,000 UNITS/ML VIAL SQ SCH ×2 (06:09→15:23)
[2017-08-01] MEDS: SODIUM CHLOR 0.9% 1000 ML INJ 1,000 ML IV SCH (06:12)
[2017-08-01] MEDS: RESP: ALBUTEROL 2.5 MG/IPRATROPIUM 0.5 MG NEB (SCH) NEB ×4 (08:16→20:47)
[2017-08-01] MEDS ORDERED: NEBULIZER1 MI1 (08:29)
[2017-08-01] MEDS: PANTOPRAZOLE SOD 40 MG DELAYED RELEASE TAB PO SCH (08:48)
[2017-08-01] MEDS: ENALAPRIL MALEATE 10 MG TAB PO SCH ×2 (08:48→20:47)
[2017-08-01] MEDS: FLUoxetine HCL 20 MG CAP PO SCH (08:48)
[2017-08-01] MEDS: DOCUSATE SODIUM 50 MG/SENNA 8.6 MG TAB PO SCH ×2 (08:48→20:47)
[2017-08-01] MEDS: BUDESONIDE-FORMOTEROL 160/4.5 MCG INHALER INH SCH ×2 (08:49→20:48)
[2017-08-01] MEDS: predniSONE 10 MG TAB PO SCH ×2 (08:49→20:47)
[2017-08-01] MEDS: TIOTROPIUM BROMIDE 18 MCG INH INH SCH (08:49)
[2017-08-01] MEDS: busPIRone HCL 10 MG TAB PO SCH ×2 (08:49→20:48)
[2017-08-01] MEDS: SODIUM CHLORIDE 0.9% FLUSH 10 ML FLUSH IV FLUSH SCH ×2 (08:49→20:48)
[2017-08-01] MEDS: POLYETHYLENE GLYCOL 17 GM PKG PO SCH (08:50)
--- NOTE | 2017-08-01 08:55 | HHI.FPPN ---
Subjective Remarks Pt was sleeping at time of visit but easily arousable. Still tremulous when awake. Denies chest pain or abdominal pain but having headache and shortness of breath. She stated that she does not think she can take care of herself at home. She lives by herself in an apartment and states that she can hardly get out of her apartment due to shortness of breath. She would like to go to rehab but not for alcohol. (Mikayla Guerrero MD R2) Objective Vitals Vital Signs Date Time Temp Pulse Resp B/P (MAP) Pulse Ox O2 Delivery O2 Flow Rate FiO2 08/01/17 08:26 95 Nasal Cannula 1.50 08/01/17 04:31 Nasal Cannula 2.00 08/01/17 04:00 97.6 89 20 132/92 (105) 97 08/01/17 00:00 97.5 103 20 142/93 (109) 95 08/01/17 00:00 91 07/31/17 21:04 Nasal Cannula 2.00 07/31/17 20:30 91 07/31/17 20:00 98.0 101 20 137/92 (107) 98 07/31/17 16:00 95.7 95 20 124/72 (89) 98 07/31/17 12:00 96.5 116 25 133/76 (95) 95 I/O 07/31/17 07/31/17 07/31/17 08/01/17 08/01/17 08/01/17 07:00 15:00 23:00 07:00 15:00 23:00 Intake Total 3839 ml 480 ml Output Total 500 ml 850 ml 800 ml Balance -500 ml 2989 ml -320 ml Intake Oral 2200 ml 480 ml IV Total 1639 ml Output Urine Total 500 ml 850 ml 800 ml # Bowel Movements 0 (Mikayla Guerrero MD R2) Result Diagram: 08/01/17 0325 08/01/17 032 Objective Remarks GENERAL: This is a disheveled, ill-appearing anatomically male, transgender female with overt tremors and dense, coarse facial and upper body hair in moderate discomfort, very tremulous SKIN: No rashes, ecchymoses or lesions. Cool and dry. NECK: Trachea midline. No lymphadenopathy. Supple, nontender, no meningeal signs CARDIOVASCULAR: Tachycardic with regular rhythm without murmur, gallop, or rub RESPIRATORY: Clear to auscultation. Breath sounds equal bilaterally but distant , poor effort due to weakness; no wheezes or rales or rhonchi GASTROINTESTINAL: Abdomen soft, non-tender, nondistended. No hepato-splenomegaly , or palpable masses. No guarding. MUSCULOSKELETAL: Extremities without clubbing, cyanosis, or edema. No joint tenderness, effusion, or edema noted. No calf tenderness NEUROLOGICAL: Awake and alert. Cranial nerves II through XII intact. Motor and sensory grossly within normal limits. Normal speech Procedures ECHO 2D Doppler 07/30/17 - Dr Palumbo CONCLUSIONS Mildly dilated left ventricle. Wall thickness is normal. The left ventricular systolic function is low normal with an estimated ejection fraction in the range of 50- 55%. Mitral annular calcification is present. Trace mitral valve regurgitation. (Eko,Mikayla Helton MD R2) A/P Assessment and Plan 56YO transgender female w/PMHx HTN, COPD, tobacco and EtOH abuse presented with SOB and with CP after being found down by a neighbor after a night of drinking, 2 days of nonbloody, nonbilious emesis/dry heaves and decreased PO intake for 4 days. Dx: metabolic acidosis due to EtOH intoxication and subsequent dehydration with COPD exacerbation vs aspiration PNA and possible cardiac ischemia. Pt met sepsis criteria on admit with WBC 12.1, tachycardia 122, RR 32 , pulse ox 84% RA. 08/01: Not much change clinically compared to the previous day. Sodium level is stable at 134, potassium within normal limits at 3.6. Patient still very tremulous, requiring IV Ativan. 07/31: Not much change clinically compared to the previous day. Sodium level is stable at 131, potassium within normal limits at 3.6. Patient still very tremulous, requiring IV Ativan. 07/30: Pt is tremulous/shaking on interview--spoke to nursing about being more aggressive with Ativan for withdrawal/CIWA scoring due to prior withdrawal seizures. ST gave mech soft/thin liquid diet--added ensure/boost supplement w/ each meal to improve PO and caloric intake. Pt has an appetite which is a reassuring development. Hyponatremia slow to improve and still requiring increased IVF intake @125mls/hr. Mild hypokalemia 3.4 this morning--added 30meq PO KCl to replete. Pt states she is breathing much easier. Legionella neg but pneumococcal antigen positive; WBC 9.8, afebrile, Blood cx NGTD x1 day. Continue PO Flagyl, Levaquin, prednisone, duonebs for breathing, COPD/ aspiration. Will clinically follow and monitor. Dw Dr Ndiaye 1. EtOH withdrawal w/hx of withdrawal seizures -- Acutely withdrawing requiring multiple doses of IV Ativan - Pt with tremors on exam today and tachycardic - CIWA protocol - Rally pack--thiamine, folate, mv - Zofran 4mg IV q6h - Protonix 40mg PO daily 2. Electrolyte abnormalities: - Hyponatremia * Likely chronically depleted 2/2 EtOH abuse; Urine Osmo 413 wnl and Urine random Na 21 wnl suggestive of hypovolemic hyponatremia from dehydration and chronic EtOH use * Na 119 on admit -> improved to 134 morning - reduced NS IVF to 75ml/hr 3. SEPSIS likely 2/2 RML PNA - consider aspiration vs COPD exacerbation vs combo -- SEPSIS resolved; however, still treating PNA/COPD exacerbation which is improved. - CXR w/RML infiltrate, pt found down by neighbor after night of drinking - suspect aspiration PNA - Legionella ag negative but pneumococcal ag positive on 07/30 - Continue Levaquin 750mg PO daily - Continue Flagyl 500mg PO daily - Prednisone 20mg BID; continue taper - Duonebs q4h while awake - Continue home albuterol, atrovent and symbicort inhalers - IS 4. Depression/Anxiety - Continue home Fluoxetine 20mg/day - Continue home Buspirone 10mg daily - Hold Hydroxyzine 25mg TID for now - Hold home Trazodone 50mg hs for now 5. HTN - normotensive - Continue home enalapril 10mg daily - Hold HCTZ 12.5mg daily due to hypokalemia - Clonidine 0.1 mg PO q6h PRN if SBP >180 and/or DBP >100 6. Chest Pain - likely demand ischemia 2/2 chronic EtOH intake complicated by aspiration/COPD exacerbation and subsequent hypoxia now resolved. ACS w/u negative. -ACS rule out complete - EKG x2 -- both show ischemia vs infarct - BNP wnl, Trops <0.02 x2 - Total CK wnl - TSH wnl - Lipase 123 - UDS positive cannabinoids - Mag wnl - ECHO 1/18: Mild left ventricle dilation, low normal EF: 50-55%, normal septal thickness, annular MV calcification w/trace MV regurg 7. FEN/GI/PPx Fluids: as above augmented with PO Electrolytes: monitor and replete as necessary Nutrition: Per ST, ok with mechanical soft/thin liquid diet with Boost/Ensure supplement at each meal GI: Protonix 40mg PO daily PPx: Heparin 5000 units q8h Tylenol 650mg PO q4h Pain control: Hold home Tramadol 50mg q4h for now; consider restart if patient requests for pain Bowel regimen PT recommends acute rehab - CM to assist Discharge Planning Pending improvement in EtOH withdrawal sxs and hyponatremia (Mikayla Guerrero MD R2) Problem List: (1) Alcohol withdrawal ICD Codes: F10.239 - Alcohol dependence with withdrawal, unspecified Status: Acute (2) Sepsis ICD Codes: A41.9 - Sepsis, unspecified organism (3) Chest pain at rest ICD Codes: R07.9 - Chest pain, unspecified (4) Increased anion gap metabolic acidosis ICD Codes: E87.2 - Acidosis (5) RML pneumonia ICD Codes: J18.1 - Lobar pneumonia, unspecified organism Status: Acute (6) COPD exacerbation ICD Codes: J44.1 - Chronic obstructive pulmonary disease with (acute) exacerbation Status: Acute (7) Alcohol abuse ICD Codes: F10.10 - Alcohol abuse, uncomplicated Status: Acute (8) Tobacco abuse ICD Codes: Z72.0 - Tobacco abuse Status: Chronic (9) Hypertension ICD Codes: I10 - Hypertension Status: Chronic (10) Depression ICD Codes: F32.9 - Major depressive disorder, single episode, unspecified (11) FEN/GI/PPx (Mikayla Guerrero MD R2) Problem Qualifiers (1) RML pneumonia: Qualified Codes: J18.1 - Lobar pneumonia, unspecified organism Mikayla Guerrero MD R2 Aug 01, 2017 08:55 Hellen Ndiaye MD Aug 02, 2017 16:08
[2017-08-01] MEDS: LEVOFLOXACIN 750 MG TAB PO SCH (11:55)
[2017-08-01] MEDS: MULTIVITAMIN INJ 10 ML, FOLIC ACID INJ 1 MG in SODIUM CHLORID 0.9% 500 ML INJ 500 ML IV SCH (15:23)
[2017-08-01] MEDS: LORazepam 1 MG TAB PO PRN (15:24)
[2017-08-01] MEDS: LORazepam 2 MG TAB PO PRN (20:47)
[2017-08-02] VITALS (7 sets, daily range): BP systolic 109–137; BP diastolic 69–92; PULSE 92–110; RESP 16–22; TEMP 97.7–98.4; O2SAT 92–98
[2017-08-02] MEDS: LORazepam 2 MG TAB PO PRN ×5 (00:40→17:57)
[2017-08-02] MEDS: HEPARIN SODIUM - SQ 10,000 UNITS/ML VIAL SQ SCH ×4 (00:43→22:19)
[2017-08-02] MEDS: ALBUTEROL SULFATE 90 MCG/ACT HFA 8 GM INHALER INH PRN (02:41)
[2017-08-02] MEDS: metroNIDAZOLE 500 MG TAB PO SCH ×3 (02:48→17:59)
[2017-08-02] MEDS: ACETAMINOPHEN 325 MG TAB PO PRN ×2 (02:49→08:55)
[2017-08-02 08:18] LABS: AUTOMATED NEUTROPHIL # 4.8 TH/MM3 (1.8-7.7); HEMOGLOBIN 8.6 GM/DL (11.6-15.3); LYMPH % 10.3 % (9.0-44.0); LYMPHOCYTE # 0.6 TH/MM3 (1.0-4.8); MEAN CORPUSCULAR HEMOGLOBIN 35.7 PG (27.0-34.0); MEAN CORPUSCULAR HGB CONC 34.3 % (32.0-36.0); MEAN PLATELET VOLUME 6.8 FL (7.0-11.0); MONO % 9.6 % (0.0-8.0); MONOCYTE # 0.6 TH/MM3 (0-0.9); NEUT % 80.1 % (16.0-70.0); PLATELET COUNT 291 TH/MM3 (150-450); RED CELL DISTRIBUTION WIDTH 20.3 % (11.6-17.2)
[2017-08-02] MEDS: predniSONE 10 MG TAB PO SCH ×2 (08:45→22:18)
[2017-08-02] MEDS: busPIRone HCL 10 MG TAB PO SCH ×2 (08:45→22:17)
[2017-08-02] MEDS: FLUoxetine HCL 20 MG CAP PO SCH (08:46)
[2017-08-02] MEDS: PANTOPRAZOLE SOD 40 MG DELAYED RELEASE TAB PO SCH (08:46)
[2017-08-02] MEDS: DOCUSATE SODIUM 50 MG/SENNA 8.6 MG TAB PO SCH ×2 (08:46→21:00)
[2017-08-02] MEDS: POLYETHYLENE GLYCOL 17 GM PKG PO SCH (08:46)
[2017-08-02] MEDS: ENALAPRIL MALEATE 10 MG TAB PO SCH ×2 (08:46→22:17)
[2017-08-02] MEDS: SODIUM CHLORIDE 0.9% FLUSH 10 ML FLUSH IV FLUSH SCH ×2 (08:48→22:16)
[2017-08-02] MEDS: BUDESONIDE-FORMOTEROL 160/4.5 MCG INHALER INH SCH ×2 (08:48→22:14)
[2017-08-02] MEDS: TIOTROPIUM BROMIDE 18 MCG INH INH SCH (09:00)
[2017-08-02 10:07] LABS: ALBUMIN 2.3 GM/DL (3.4-5.0); ALT (GPT) 26 U/L (10-53); AST (GOT) 20 U/L (15-37); BICARBONATE 23.8 MEQ/L (21.0-32.0); BLOOD UREA NITROGEN 8 MG/DL (7-18); CHLORIDE 102 MEQ/L (98-107); CREATININE 0.55 MG/DL (0.50-1.00); GLOMERULAR FILTRATION RATE 114 ML/MIN (>89); GLUCOSE,RANDOM 122 MG/DL (74-106); SODIUM (NA) 135 MEQ/L (136-145)
[2017-08-02 10:10] LABS: ALKALINE PHOSPHATASE 60 U/L (45-117); TOTAL BILIRUBIN ADULT 0.3 MG/DL (0.2-1.0); TOTAL PROTEIN 4.8 GM/DL (6.4-8.2)
[2017-08-02] MEDS: LEVOFLOXACIN 750 MG TAB PO SCH (12:45)
--- NOTE | 2017-08-02 14:14 | HHI.FPPN ---
Subjective Remarks Ms Bauer had no acute events overnight. She is taking PO, voiding and stooling , and can transfer to bedside commode. While sleeping remains asymptomatic but becomes tremulous upon awaking. CIWA scores still at 11-13 overnight in spite of having been w/o EtOH for >5 days. Pt complains she does not feel safe or strong enough to ambulate at home, but CM reports pt insurance will not support another stay at rehab. Have contacted CM to discuss other options for discharge as medical management has been optimized. Denies CP, SOB, N/V/D and DVT pain; however, feels weak and unstable on her feet. (Darin Bryan MD R1) Objective Vitals Vital Signs Date Time Temp Pulse Resp B/P (MAP) Pulse Ox O2 Delivery O2 Flow Rate FiO2 08/02/17 12:00 97.9 110 17 132/91 (105) 93 08/02/17 08:00 97.9 92 16 109/82 (91) 94 08/02/17 05:22 98.4 103 18 131/91 (104) 96 08/02/17 04:52 20 08/02/17 02:05 94 08/02/17 00:00 98.0 100 22 137/69 (91) 92 08/01/17 20:00 97.8 103 22 134/90 (105) 93 08/01/17 16:00 97.6 106 19 133/78 (96) 91 I/O 08/01/17 08/01/17 08/01/17 08/02/17 08/02/17 08/02/17 07:00 15:00 23:00 07:00 15:00 23:00 Intake Total 480 ml 1720 ml 580 ml Output Total 800 ml 600 ml 1000 ml Balance -320 ml 1120 ml -420 ml Intake Oral 480 ml 720 ml 580 ml IV Total 1000 ml Output Urine Total 800 ml 600 ml 1000 ml # Voids 1 # Bowel Movements 1 1 (Darin Bryan MD R1) Result Diagram: 08/02/17 0533 08/02/17 0533 Objective Remarks GENERAL: This is a disheveled, ill-appearing anatomically male, transgender female with overt tremors and dense, coarse facial and upper body hair in moderate discomfort, very tremulous SKIN: No rashes, ecchymoses or lesions. Cool and dry. NECK: Trachea midline. No lymphadenopathy. Supple, nontender, no meningeal signs CARDIOVASCULAR: Tachycardic with regular rhythm without murmur, gallop, or rub RESPIRATORY: Clear to auscultation. Breath sounds equal bilaterally but distant , poor effort due to weakness; no wheezes or rales or rhonchi GASTROINTESTINAL: Abdomen soft, non-tender, nondistended. No hepato-splenomegaly , or palpable masses. No guarding. MUSCULOSKELETAL: Extremities without clubbing, cyanosis, or edema. No joint tenderness, effusion, or edema noted. No calf tenderness NEUROLOGICAL: Awake and alert. Cranial nerves II through XII intact. Motor and sensory grossly within normal limits. Normal speech Procedures ECHO 2D Doppler 07/30/17 - Dr Palumbo CONCLUSIONS Mildly dilated left ventricle. Wall thickness is normal. The left ventricular systolic function is low normal with an estimated ejection fraction in the range of 50- 55%. Mitral annular calcification is present. Trace mitral valve regurgitation. Medications and IVs Current Medications Medications (Trade) Dose Ordered Sig/Castillo Route Start Time Stop Time Status Last Admin (Romazicon Inj) 0.2 mg Q1M PRN IV PUSH 07/28/17 12:45 (Ativan) 1 mg Q4H PRN PO 07/28/17 12:45 08/01/17 15:24 (Ativan Inj) 1 mg Q4H PRN IV PUSH 07/28/17 12:45 08/01/17 09:03 (Ativan) 2 mg Q2H PRN PO 07/28/17 12:45 08/02/17 12:45 (Ativan Inj) 2 mg Q2H PRN IV PUSH 07/28/17 12:45 08/01/17 06:12 (Ativan Inj) 2 mg Q1H PRN IV PUSH 07/28/17 12:45 07/31/17 08:39 (Ativan Inj) 2 mg Q15M PRN IV PUSH 07/28/17 12:45 (Symbicort 160-4.5 Mcg Inh) 2 puff Q12HR INH 07/28/17 12:45 08/02/17 08:48 (Buspar) 10 mg BID PO 07/28/17 21:00 08/02/17 08:45 (PROzac) 20 mg DAILY PO 07/28/17 12:45 Future hold 08/02/17 08:46 (Spiriva Inh) 18 mcg DAILY INH 07/28/17 14:00 08/01/17 08:49 (Tylenol) 650 mg Q4H PRN PO 07/28/17 13:30 08/02/17 08:55 (Zofran Inj) 4 mg Q6H PRN IVP 07/28/17 13:30 (Heparin Inj) 5,000 units Q8H SQ 07/28/17 15:00 08/02/17 05:27 (Narcan Inj) 0.4 mg UNSCH PRN IV PUSH 07/28/17 13:30 (Beatrice-Colace) 1 tab BID PO 07/28/17 21:00 08/02/17 08:46 Multivitamins 10 ml/Folic Acid 1 mg/Sodium Chloride 510.2 ml @ 125 mls/hr Q24H IV 07/28/17 16:00 08/02/17 15:59 08/01/17 15:23 (Protonix) 40 mg DAILY PO 07/29/17 09:00 08/02/17 08:46 (Catapres) 0.1 mg Q6H PRN PO 07/28/17 13:30 (NS Flush) 2 ml BID IV FLUSH 07/28/17 21:00 08/02/17 08:48 (NS Flush) 2 ml UNSCH PRN IV FLUSH 07/28/17 15:30 07/30/17 17:26 (Vasotec) 10 mg BID PO 07/28/17 21:00 08/02/17 08:46 (Proair Hfa Inh) 2 puff Q6H PRN INH 07/28/17 18:15 08/02/17 02:41 (Flagyl) 500 mg Q8H PO 07/29/17 18:00 08/02/17 02:48 (Levaquin) 750 mg Q24H PO 07/30/17 12:00 08/02/17 12:45 (Deltasone) 20 mg BID PO 07/31/17 21:00 08/02/17 08:45 (Miralax) 17 gm DAILY PO 08/01/17 09:00 08/02/17 08:46 (Darin Bryan MD R1) Urinary Catheter: No (Darin Bryan MD R1) A/P Assessment and Plan 56YO transgender female w/PMHx HTN, COPD, tobacco and EtOH abuse presented with SOB and with CP after being found down by a neighbor after a night of drinking, 2 days of nonbloody, nonbilious emesis/dry heaves and decreased PO intake for 4 days. Dx: metabolic acidosis due to EtOH intoxication and subsequent dehydration with COPD exacerbation vs aspiration PNA and possible cardiac ischemia. Pt met sepsis criteria on admit with WBC 12.1, tachycardia 122, RR 32 , pulse ox 84% RA which has resolved. 08/02: Pt electrolytes wnl w/normal anion gap and resolved metabolic acidosis. Pt is on day 5 of abx. Still has a cough, weakness, and requires assistance. Pt is tremulous when awake, IV ativan has been weaned and working to wean PO. CM reports that pt insurance likely will not support rehab following hospitalization; inquiring about other options. Still awaiting heme occult. AFVSS, afebrile with WBC 6.0. 07/31: Not much change clinically compared to the previous day. Sodium level is stable at 131, potassium within normal limits at 3.6. Patient still very tremulous, requiring IV Ativan. 07/30: Pt is tremulous/shaking on interview--spoke to nursing about being more aggressive with ativan for withdrawal/CIWA scoring due to prior withdrawal seizures. [facility]--added ensure/boost supplement w/ each meal to improve PO and caloric intake. Pt has an appetite which is a reassuring development. Hyponatremia slow to improve and still requiring increased IVF intake @125mls/hr. Mild hypokalemia 3.4 this morning--added 30meq PO KCl to replete. Pt states she is breathing much easier. Legionella neg but pneumococcal antigen positive; WBC 9.8, afebrile, Blood cx NGTD x1 day. Continue PO Flagyl, Levaquin, prednisone, duonebs for breathing, COPD/ aspiration. Will clinically follow and monitor. Seen with Allyn Ndiaye and Jeannette Goldsmith 1. Chest Pain - Resolved - likely demand ischemia 2/2 chronic EtOH intake complicated by aspiration/COPD exacerbation and subsequent hypoxia now resolved. ACS w/u negative. -ACS rule out complete - EKG x2 -- both show ischemia vs infarct - BNP wnl, Trops <0.02 x2 - Total CK wnl - TSH wnl - Lipase 123 - UDS positive cannabinoids - Mag wnl - ECHO 07/29: Mild left ventricle dilation, low normal EF: 50-55%, normal septal thickness, annular MV calcification w/trace MV regurg 2. Metabolic acidosis - Resolved - anion gap 17 and multiple electrolyte abnormalities on admit. 3. Electrolyte abnormalities: - Hyponatremia - Resolved. * Likely chronically depleted 2/2 EtOH abuse; Urine Osmo 413 wnl and Urine random Na 21 wnl suggestive of hypovolemic hyponatremia from dehydration and chronic EtOH use * Na 119 on admit -> improved to 135 this morning - discontinued IVF 08/01; follow BMP daily * Hypokalemia resolved on 07/30 - UDS positive cannabis - Salicylates, acetaminophen negative, EtOH <3 3. SEPSIS likely 2/2 RML PNA Resolved - however, still treating aspiration vs COPD exacerbation vs combo which is improving - CXR w/RML infiltrate, pt found down by neighbor after night of drinking - suspect aspiration PNA - Legionella ag negative but pneumococcal ag positive on 07/30 - Levaquin 750mg PO daily (07/28-) - Flagyl 500mg PO daily (07/29 -) - Prednisone 20mg BID; continue taper - Duonebs q4h while awake - Continue home albuterol, atrovent and symbicort inhalers - IS 4. EtOH withdrawal w/hx of withdrawal seizures -- CIWA scores 11-13 overnight on PO ativan - Pt with tremors on exam today, AFVSS - CIWA protocol - Rally pack--thiamine, folate, mv - Zofran 4mg IV q6h - Protonix 40mg PO daily 5. Depression/Anxiety - Continue home Fluoxetine 20mg/day - Continue home Busipirone 10mg daily - Hold Hydroxyzine 25mg TID for now - Hold home Trazodone 50mg hs for now 6. HTN - normotensive - Continue home elanapril 10mg daily - Hold HCTZ 12.5mg - Clonidine 0.1 mg PO q6h PRN if SBP >180 and/or DBP >100 7. FEN/GI/PPx Fluids: PO fluids Electrolytes: monitor and replete as necessary Nutrition: Per ST ok with mechanical soft/thin liquid diet with Boost/Ensure supplement at each meal GI: Protonix 40mg PO daily PPx: Heparin 5000 units q8h Tylenol 650mg PO q4h Pain control: Hold home Tramadol 50mg q4h for now Bowel regimen Discharge Planning Pending improvement in EtOH withdrawal sxs and hyponatremia (Darin Bryan MD R1) Attending Attestation patient seen and examined. case reviewed and discussed agree with plan of care as discussed with me and documented in the resident note. (Hellen Ndiaye MD) Problem List: (1) Sepsis ICD Codes: A41.9 - Sepsis, unspecified organism (2) Chest pain at rest ICD Codes: R07.9 - Chest pain, unspecified (3) Increased anion gap metabolic acidosis ICD Codes: E87.2 - Acidosis (4) RML pneumonia ICD Codes: J18.1 - Lobar pneumonia, unspecified organism Status: Acute (5) Alcohol withdrawal ICD Codes: F10.239 - Alcohol dependence with withdrawal, unspecified Status: Acute (6) COPD exacerbation ICD Codes: J44.1 - Chronic obstructive pulmonary disease with (acute) exacerbation Status: Acute (7) Alcohol abuse ICD Codes: F10.10 - Alcohol abuse, uncomplicated Status: Acute (8) Tobacco abuse ICD Codes: Z72.0 - Tobacco abuse Status: Chronic (9) Hypertension ICD Codes: I10 - Hypertension Status: Chronic (10) Depression ICD Codes: F32.9 - Major depressive disorder, single episode, unspecified (11) FEN/GI/PPx (Darin Bryan MD R1) Problem Qualifiers (1) RML pneumonia: Qualified Codes: J18.1 - Lobar pneumonia, unspecified organism Darin Bryan MD R1 Aug 02, 2017 14:14 Hellen Ndiaye MD Aug 02, 2017 16:13
--- NOTE | 2017-08-02 16:13 | RADRPT ---
EXAM DATE/TIME: 08/02/2017 15:32 [facility] COMPARISON: US LEG BILATERAL VENOUS DOPPLER, September 24, 2015, 14:00. INDICATIONS : Left arm swelling. MEDICAL HISTORY : Hypertension. Chronic obstructive pulmonary disease. Glasses. Dentures. Seizures. Syncope. Dyspnea. Arthritis. Osteoporosis. Depression. Anxiety. SURGICAL HISTORY : Tonsillectomy. Masectomy. Bilateral hip replacements. Breast reconstruction. ENCOUNTER: Initial ACUITY: 2 day PAIN SCORE: 2/10 LOCATION: Left arm. FINDINGS: There is spontaneous flow documented in the brachial, basilic, cephalic, axillary, and subclavian vei ns. The vessels are compressible and augmentation response is documented. No filling defects are se en. The flow is phasic with respiration. Direction of flow in the jugular vein is caudal. CONCLUSION: 1. No deep venous thrombosis of the left upper [place] identified. Jared Whitfield MD on August 02, 2017 at 16:11 Board Certified Radiologist. This report was verified electronically.
[2017-08-02] MEDS: LORazepam 1 MG TAB PO PRN (22:33)
[2017-08-03] VITALS (8 sets, daily range): BP systolic 103–148; BP diastolic 73–90; PULSE 80–113; RESP 18–24; TEMP 96.3–98.3; O2SAT 96–98
[2017-08-03] MEDS: LORazepam 2 MG TAB PO PRN ×5 (00:35→21:48)
[2017-08-03] MEDS: metroNIDAZOLE 500 MG TAB PO SCH ×3 (03:36→17:03)
[2017-08-03 04:51] LABS: HEMATOCRIT 25.9 % (35.0-46.0); MEAN CELL VOLUME 103.2 FL (80.0-100.0); MEAN CORPUSCULAR HEMOGLOBIN 35.8 PG (27.0-34.0); MEAN CORPUSCULAR HGB CONC 34.7 % (32.0-36.0); MEAN PLATELET VOLUME 6.5 FL (7.0-11.0); PLATELET COUNT 316 TH/MM3 (150-450); RED BLOOD COUNT 2.51 MIL/MM3 (4.00-5.30); RED CELL DISTRIBUTION WIDTH 20.2 % (11.6-17.2); WHITE BLOOD COUNT 6.1 TH/MM3 (4.0-11.0)
[2017-08-03 05:21] LABS: ALBUMIN 2.2 GM/DL (3.4-5.0); ALT (GPT) 22 U/L (10-53); AST (GOT) 16 U/L (15-37); BICARBONATE 25.8 MEQ/L (21.0-32.0); BLOOD UREA NITROGEN 9 MG/DL (7-18); CALCIUM 8.1 MG/DL (8.5-10.1); CHLORIDE 98 MEQ/L (98-107); CREATININE 0.55 MG/DL (0.50-1.00); GLOMERULAR FILTRATION RATE 114 ML/MIN (>89); GLUCOSE,RANDOM 140 MG/DL (74-106); SODIUM (NA) 133 MEQ/L (136-145)
[2017-08-03 05:23] LABS: ALKALINE PHOSPHATASE 58 U/L (45-117); TOTAL BILIRUBIN ADULT 0.4 MG/DL (0.2-1.0); TOTAL PROTEIN 4.7 GM/DL (6.4-8.2)
[2017-08-03] MEDS: HEPARIN SODIUM - SQ 10,000 UNITS/ML VIAL SQ SCH ×3 (06:39→21:48)
--- NOTE | 2017-08-03 08:28 | HHI.FPPN ---
Subjective Remarks Patient was sitting up in bed, eating breakfast. Still does not feel well enough to go home. Her main issue is shortness of breath - she states that yesterday, she was only able to walk to the door and back with PT and her oxygen dropped to 88%. She continues to have tremors. (Mikayla Guerrero MD R2) Objective Vitals Vital Signs Date Time Temp Pulse Resp B/P (MAP) Pulse Ox O2 Delivery O2 Flow Rate FiO2 08/03/17 04:00 97.1 113 20 118/83 (95) 96 08/03/17 00:00 96.3 101 20 148/90 (109) 96 08/03/17 00:00 80 08/02/17 20:00 97.7 103 20 131/92 (105) 98 08/02/17 17:21 3.00 08/02/17 16:00 98.4 103 19 128/92 (104) 97 08/02/17 12:00 97.9 110 17 132/91 (105) 93 I/O 08/02/17 08/02/17 08/02/17 08/03/17 08/03/17 08/03/17 07:00 15:00 23:00 07:00 15:00 23:00 Intake Total 580 ml Output Total 1000 ml 800 ml Balance -420 ml -800 ml Intake Oral 580 ml Output Urine Total 1000 ml 800 ml # Bowel Movements 1 (Mikayla Guerrero MD R2) Result Diagram: 08/03/17 0435 08/03/17 0435 Objective Remarks GENERAL: This is an anatomically male, transgender female with overt tremors and dense, coarse facial and upper body hair in moderate discomfort, tremulous SKIN: No rashes, ecchymoses or lesions. Cool and dry. NECK: Trachea midline. No lymphadenopathy. Supple, nontender, no meningeal signs CARDIOVASCULAR: Tachycardic with regular rhythm without murmur, gallop, or rub RESPIRATORY: Clear to auscultation. Breath sounds equal bilaterally but distant , poor effort due to weakness; no wheezes or rales or rhonchi GASTROINTESTINAL: Abdomen soft, non-tender, nondistended. No hepato-splenomegaly , or palpable masses. No guarding. MUSCULOSKELETAL: Extremities without clubbing, cyanosis, or edema. No joint tenderness, effusion, or edema noted. No calf tenderness NEUROLOGICAL: Awake and alert. Cranial nerves II through XII intact. Motor and sensory grossly within normal limits. Normal speech Procedures ECHO 2D Doppler 07/30/17 - Dr Palumbo CONCLUSIONS Mildly dilated left ventricle. Wall thickness is normal. The left ventricular systolic function is low normal with an estimated ejection fraction in the range of 50- 55%. Mitral annular calcification is present. Trace mitral valve regurgitation. (Eko,Mikayla U R2) A/P Assessment and Plan 56YO transgender female w/PMHx HTN, COPD, tobacco and EtOH abuse presented with SOB and with CP after being found down by a neighbor after a night of drinking, 2 days of nonbloody, nonbilious emesis/dry heaves and decreased PO intake for 4 days. Dx: metabolic acidosis due to EtOH intoxication and subsequent dehydration with COPD exacerbation vs aspiration PNA and possible cardiac ischemia. Pt met sepsis criteria on admit with WBC 12.1, tachycardia 122, RR 32 , pulse ox 84% RA which has resolved. 08/03: Patient still tremulous exam. Still oxygen dependent. Only qualifies for home health care nursing. Does not feel well enough to go home. CIWA scores overnight ranged between 8-15. Still requiring Ativan [id number]. Will perform CTA to rule out PE due to sustained tachycardia and shortness of breath. 08/02: Pt electrolytes wnl w/normal anion gap and resolved metabolic acidosis. Pt is on day 5 of abx. Still has a cough, weakness, and requires assistance. Pt is tremulous when awake, IV ativan has been weaned and working to wean PO. reports that pt insurance likely will not support rehab following hospitalization; inquiring about other options. Still awaiting heme occult. AFVSS, afebrile with WBC 6.0. 07/31: Not much change clinically compared to the previous day. Sodium level is stable at 131, potassium within normal limits at 3.6. Patient still very tremulous, requiring IV Ativan. 07/30: Pt is tremulous/shaking on interview--spoke to nursing about being more aggressive with ativan for withdrawal/CIWA scoring due to prior withdrawal seizures. ST gave [facility] soft/thin liquid diet--added ensure/boost supplement w/ each meal to improve PO and caloric intake. Pt has an appetite which is a reassuring development. Hyponatremia slow to improve and still requiring increased IVF intake @125mls/hr. Mild hypokalemia 3.4 this morning--added 30meq PO KCl to replete. Pt states she is breathing much easier. Legionella neg but pneumococcal antigen positive; WBC 9.8, afebrile, Blood cx NGTD x1 day. Continue PO Flagyl, Levaquin, prednisone, duonebs for breathing, COPD/ aspiration. Will clinically follow and monitor. Seen with Allyn Ndiaye and Jeannette Goldsmith 1. Chest Pain - Resolved - likely demand ischemia 2/2 chronic EtOH intake complicated by aspiration/COPD exacerbation and subsequent hypoxia now resolved. ACS w/u negative. -ACS rule out complete - EKG x2 -- both show ischemia vs infarct - BNP wnl, Trops <0.02 x2 - Total CK wnl - TSH wnl - Lipase 123 - UDS positive cannabinoids - Mag wnl - ECHO 07/29: Mild left ventricle dilation, low normal EF: 50-55%, normal septal thickness, annular MV calcification w/trace MV regurg 2. Metabolic acidosis - Resolved - anion gap 17 and multiple electrolyte abnormalities on admit. 3. Electrolyte abnormalities: - Hyponatremia - Resolved. * Likely chronically depleted 2/2 EtOH abuse; Urine Osmo 413 wnl and Urine random Na 21 wnl suggestive of hypovolemic hyponatremia from dehydration and chronic EtOH use * Na 119 on admit -> improved to 135 this morning - discontinued IVF 08/01; follow BMP daily * Hypokalemia resolved on 07/30 - UDS positive cannabis - Salicylates, acetaminophen negative, EtOH <3 3. SEPSIS likely 2/2 RML PNA Resolved - however, still treating aspiration vs COPD exacerbation vs combo which is improving - CXR w/RML infiltrate, pt found down by neighbor after night of drinking - suspect aspiration PNA - Legionella ag negative but pneumococcal ag positive on 07/30 - Levaquin 750mg PO daily (07/28-) - Flagyl 500mg PO daily (07/29 -) - Prednisone 20mg BID; continue taper - Duonebs q4h while awake - Pulmicort nebulizer every 12 hours, albuterol inhaler as needed - IS 4. EtOH withdrawal w/hx of withdrawal seizures -- CIWA scores 11-13 overnight on PO ativan - Pt with tremors on exam today, AFVSS - CIWA protocol - Thiamine, folate, mv - Zofran 4mg IV q6h - Protonix 40mg PO daily 5. Depression/Anxiety - Continue home Fluoxetine 20mg/day - Continue home Busipirone 10mg daily - Hold Hydroxyzine 25mg TID for now - Hold home Trazodone 50mg hs for now 6. HTN - normotensive - Continue home elanapril 10mg daily - Hold HCTZ 12.5mg - Clonidine 0.1 mg PO q6h PRN if SBP >180 and/or DBP >100 7. FEN/GI/PPx Fluids: PO fluids Electrolytes: monitor and replete as necessary Nutrition: Per ST ok with mechanical soft/thin liquid diet with Boost/Ensure supplement at each meal GI: Protonix 40mg PO daily PPx: Heparin 5000 units q8h Tylenol 650mg PO q4h Pain control: Hold home Tramadol 50mg q4h for now Bowel regimen Discharge Planning Pending improvement in EtOH withdrawal sxs and hyponatremia (Mikayla Guerrero MD R2) Attending Attestation Patient seen and examined. Case reviewed and discussed Agree with plan of care as discussed with me and documented in the resident note. (Hellen Ndiaye MD) Problem List: (1) Sepsis ICD Codes: A41.9 - Sepsis, unspecified organism (2) Chest pain at rest ICD Codes: R07.9 - Chest pain, unspecified (3) Increased anion gap metabolic acidosis ICD Codes: E87.2 - Acidosis (4) RML pneumonia ICD Codes: J18.1 - Lobar pneumonia, unspecified organism Status: Acute (5) Alcohol withdrawal ICD Codes: F10.239 - Alcohol dependence with withdrawal, unspecified Status: Acute (6) COPD exacerbation ICD Codes: J44.1 - Chronic obstructive pulmonary disease with (acute) exacerbation Status: Acute (7) Alcohol abuse ICD Codes: F10.10 - Alcohol abuse, uncomplicated Status: Acute (8) Tobacco abuse ICD Codes: Z72.0 - Tobacco abuse Status: Chronic (9) Hypertension ICD Codes: I10 - Hypertension Status: Chronic (10) Depression ICD Codes: F32.9 - Major depressive disorder, single episode, unspecified (11) FEN/GI/PPx (Mikayla Guerrero MD R2) Problem Qualifiers (1) RML pneumonia: Qualified Codes: J18.1 - Lobar pneumonia, unspecified organism Mikayla Guerrero MD R2 Aug 03, 2017 08:27 Hellen Ndiaye MD Aug 03, 2017 16:56
[2017-08-03] MEDS: PANTOPRAZOLE SOD 40 MG DELAYED RELEASE TAB PO SCH (08:44)
[2017-08-03] MEDS: busPIRone HCL 10 MG TAB PO SCH ×2 (08:44→21:48)
[2017-08-03] MEDS: ENALAPRIL MALEATE 10 MG TAB PO SCH ×2 (08:44→21:48)
[2017-08-03] MEDS: DOCUSATE SODIUM 50 MG/SENNA 8.6 MG TAB PO SCH ×2 (08:44→21:00)
[2017-08-03] MEDS: predniSONE 10 MG TAB PO SCH ×2 (08:44→21:48)
[2017-08-03] MEDS: FLUoxetine HCL 20 MG CAP PO SCH (08:44)
[2017-08-03] MEDS: SODIUM CHLORIDE 0.9% FLUSH 10 ML FLUSH IV FLUSH SCH ×2 (08:45→21:50)
[2017-08-03] MEDS: RESP: BUDESONIDE 0.5 MG/2 ML NEB NEB SCH ×2 (08:45→21:10)
[2017-08-03] MEDS: POLYETHYLENE GLYCOL 17 GM PKG PO SCH (08:46)
[2017-08-03] MEDS: RESP: ALBUTEROL 2.5 MG/IPRATROPIUM 0.5 MG NEB (SCH) NEB ×3 (12:00→21:10)
[2017-08-03] MEDS: MULTIVITAMINS/MINERALS THERAPEUTIC TAB PO SCH (12:29)
[2017-08-03] MEDS: THIAMINE HCL 100 MG TAB PO SCH (12:29)
[2017-08-03] MEDS: LEVOFLOXACIN 750 MG TAB PO SCH (12:29)
[2017-08-03] MEDS: FOLIC ACID 1 MG TAB PO SCH (12:29)
--- NOTE | 2017-08-03 14:27 | HHI.FF ---
Face to Face Verification Diagnosis: (1) COPD exacerbation (2) Hypertension (3) Alcohol withdrawal (4) Alcohol abuse Home Health Nursing Order: Medical education Signs/symptoms of disease process Medication education-adverse effect Nursing assessment with vital signs I have seen patient Jannie Bauer on 08/03/17. My clinical findings support the need for the requested home health care services because: Ltd mobility - disease progression Patient has SOB Deconditioned w/ increased weakness Med compliance is questionable Limited ability to care for self Need for psychosocial assistance Impaired cognition/judgement High risk of falls I certify that my clinical findings support that this patient is homebound because: Impaired cognitive ability/safety Hx COPD- exertion dyspnea/weakness Unsteady gait/balance Unsafe to leave home unassisted Need for psychosocial assistance Unable to use public transportation Mikayla Guerrero MD R2 Aug 03, 2017 14:27 Hellen Ndiaye MD Aug 03, 2017 16:56
[2017-08-03] MEDS ORDERED: IOHEXOL 350 MG/ML 10 ML VIAL (for RAD DIAG) IVCONTRAST ONE (16:55)
--- NOTE | 2017-08-03 17:09 | RADRPT ---
EXAM DATE/TIME: 08/03/2017 16:33 [place] COMPARISON: No previous studies available for comparison. INDICATIONS : Evaluate for pulmonary emboli. IV CONTRAST: 65 cc Omnipaque 350 (iohexol) IV RADIATION DOSE: 9.42 CTDIvol (mGy) MEDICAL HISTORY : Seizures. Hypertension. Chronic obstructive pulmonary disease.asthma SURGICAL HISTORY : None. ENCOUNTER: Initial ACUITY: 1 day PAIN SCALE: 3/10 LOCATION: chest TECHNIQUE: Volumetric scanning of the chest was performed using a pulmonary embolism protocol MIP images were re constructed. Using automated exposure control and adjustment of the mA and/or kV according to patien t size, radiation dose was kept as low as reasonably achievable to obtain optimal diagnostic quality images. DICOM format image data is available electronically for review and comparison. Follow-up recommendations for detected pulmonary nodules are based at a minimum on nodule size and pa tient risk factors according to Fleischner Society Guidelines. FINDINGS: No filling defects identified to suggest pulmonary embolus. Small bilateral pleural effusions with ba silar atelectasis. Moderate emphysema. CONCLUSION: 1. Negative for pulmonary embolus. Small bilateral pleural effusions with basilar atelectasis. Emphys gwen. Gerard Palumbo MD on August 03, 2017 at 17:03 Board Certified Radiologist. This report was verified electronically.
[2017-08-04] VITALS (9 sets, daily range): BP systolic 111–135; BP diastolic 71–94; PULSE 78–140; RESP 18–20; TEMP 95.4–97.6; O2SAT 92–99
[2017-08-04] MEDS: LORazepam 2 MG TAB PO PRN (02:26)
[2017-08-04] MEDS: metroNIDAZOLE 500 MG TAB PO SCH ×3 (02:27→17:17)
[2017-08-04] MEDS: HEPARIN SODIUM - SQ 10,000 UNITS/ML VIAL SQ SCH ×3 (06:23→21:43)
[2017-08-04] MEDS: FOLIC ACID 1 MG TAB PO SCH (07:59)
[2017-08-04] MEDS: predniSONE 10 MG TAB PO SCH (07:59)
[2017-08-04] MEDS: DOCUSATE SODIUM 50 MG/SENNA 8.6 MG TAB PO SCH ×2 (07:59→21:00)
[2017-08-04] MEDS: THIAMINE HCL 100 MG TAB PO SCH (07:59)
[2017-08-04] MEDS: busPIRone HCL 10 MG TAB PO SCH ×2 (07:59→21:42)
[2017-08-04] MEDS: MULTIVITAMINS/MINERALS THERAPEUTIC TAB PO SCH (07:59)
[2017-08-04] MEDS: FLUoxetine HCL 20 MG CAP PO SCH (07:59)
[2017-08-04] MEDS: PANTOPRAZOLE SOD 40 MG DELAYED RELEASE TAB PO SCH (07:59)
[2017-08-04] MEDS: ENALAPRIL MALEATE 10 MG TAB PO SCH ×2 (08:00→21:42)
[2017-08-04] MEDS: POLYETHYLENE GLYCOL 17 GM PKG PO SCH (08:03)
[2017-08-04] MEDS: LORazepam 1 MG TAB PO PRN ×2 (08:05→17:17)
[2017-08-04] MEDS: SODIUM CHLORIDE 0.9% FLUSH 10 ML FLUSH IV FLUSH SCH ×2 (08:07→21:42)
[2017-08-04] MEDS: RESP: ALBUTEROL 2.5 MG/IPRATROPIUM 0.5 MG NEB (SCH) NEB ×4 (08:52→21:00)
[2017-08-04 08:55] LABS: HEMOGLOBIN 8.9 GM/DL (11.6-15.3); MEAN CELL VOLUME 104.8 FL (80.0-100.0); MEAN CORPUSCULAR HEMOGLOBIN 35.9 PG (27.0-34.0); MEAN CORPUSCULAR HGB CONC 34.3 % (32.0-36.0); MEAN PLATELET VOLUME 6.9 FL (7.0-11.0); PLATELET COUNT 310 TH/MM3 (150-450); RED BLOOD COUNT 2.48 MIL/MM3 (4.00-5.30); WHITE BLOOD COUNT 4.8 TH/MM3 (4.0-11.0)
[2017-08-04] MEDS: RESP: BUDESONIDE 0.5 MG/2 ML NEB NEB SCH ×2 (08:58→21:00)
[2017-08-04 09:32] LABS: BICARBONATE 28.4 MEQ/L (21.0-32.0); CALCIUM 8.6 MG/DL (8.5-10.1); CREATININE 0.6 MG/DL (0.50-1.00)
--- NOTE | 2017-08-04 11:58 | HHI.FPPN ---
Subjective Remarks Ms Bauer had no acute events overnight but states she didn't sleep well and is concerned about not being safe to go home yet. We spoke with her friend Kenneth at length and he believes the pt began SSI in March which might change her options for discharge and he later spoke with CM about this. We discussed the current limited options with [facility]/Medicaid, but Kenneth shared his concern that the pt would not be safe at home alone or in a setting other than a fpc. Pt's latest imaging shows resolved/resolving PNA and we discussed the importance of the pt fully participating with PT to improve strength to regain functional status. Pt is intermittently tremulous during the interview but believe CIWA is no longer indicated. Denies pain, CP, N/V/D, DVT pain. (Darin Bryan MD R1) Objective Vitals Vital Signs Date Time Temp Pulse Resp B/P (MAP) Pulse Ox O2 Delivery O2 Flow Rate FiO2 08/04/17 08:59 99 Nasal Cannula 2.00 08/04/17 08:00 97.6 111 19 116/82 (93) 97 08/04/17 04:00 96.9 140 20 135/94 (108) 92 08/04/17 04:00 87 08/04/17 00:00 97.5 110 20 135/90 (105) 94 08/03/17 23:00 85 08/03/17 21:12 98 Nasal Cannula 2.00 08/03/17 20:00 98.0 105 20 117/75 (89) 97 08/03/17 16:00 98.3 92 18 119/77 (91) 96 08/03/17 12:00 97.6 101 20 103/73 (83) 98 I/O 08/03/17 08/03/17 08/03/17 08/04/17 08/04/17 08/04/17 07:00 15:00 23:00 07:00 15:00 23:00 Output Total 800 ml 1000 ml Balance -800 ml -1000 ml Output Urine Total 800 ml 1000 ml # Bowel Movements 1 (Darin Bryan MD R1) Result Diagram: 08/04/17 0608/04/17 06 Objective Remarks GENERAL: This is an anatomically male, transgender female with intermittent tremors and dense, coarse facial and upper body hair, anxious, lying in bed but improved SKIN: No rashes, ecchymoses or lesions. Cool and dry. NECK: Trachea midline. No lymphadenopathy. Supple, nontender, no meningeal signs CARDIOVASCULAR: Regular rate and rhythm without murmur, gallop, or rub RESPIRATORY: Clear to auscultation. Breath sounds equal bilaterally but distant , improved effort but still weak; no wheezes or rales or rhonchi GASTROINTESTINAL: Abdomen soft, non-tender, nondistended. No hepato-splenomegaly , or palpable masses. No guarding. MUSCULOSKELETAL: Extremities without clubbing, cyanosis, or edema. No joint tenderness, effusion, or edema noted. No calf tenderness NEUROLOGICAL: Awake and alert. Cranial nerves II through XII intact. Motor and sensory grossly within normal limits. Normal speech Procedures ECHO 2D Doppler 07/30/17 - Dr Palumbo CONCLUSIONS Mildly dilated left ventricle. Wall thickness is normal. The left ventricular systolic function is low normal with an estimated ejection fraction in the range of 50- 55%. Mitral annular calcification is present. Trace mitral valve regurgitation. Medications and IVs Current Medications Medications (Trade) Dose Ordered Sig/Castillo Route Start Time Stop Time Status Last Admin (Romazicon Inj) 0.2 mg Q1M PRN IV PUSH 07/28/17 12:45 (Ativan) 1 mg Q4H PRN PO 07/28/17 12:45 08/04/17 08:05 (Ativan Inj) 1 mg Q4H PRN IV PUSH 07/28/17 12:45 08/01/17 09:03 (Ativan) 2 mg Q2H PRN PO 07/28/17 12:45 08/04/17 02:26 (Ativan Inj) 2 mg Q2H PRN IV PUSH 07/28/17 12:45 08/01/17 06:12 (Ativan Inj) 2 mg Q1H PRN IV PUSH 07/28/17 12:45 07/31/17 08:39 (Ativan Inj) 2 mg Q15M PRN IV PUSH 07/28/17 12:45 (Symbicort 160-4.5 Mcg Inh) 2 puff Q12HR INH 07/28/17 12:45 Future Hold 08/02/17 22:14 (Buspar) 10 mg BID PO 07/28/17 21:00 08/04/17 07:59 (PROzac) 20 mg DAILY PO 07/28/17 12:45 Future hold 08/04/17 07:59 (Spiriva Inh) 18 mcg DAILY INH 07/28/17 14:00 Future Hold 08/01/17 08:49 (Tylenol) 650 mg Q4H PRN PO 07/28/17 13:30 08/02/17 08:55 (Zofran Inj) 4 mg Q6H PRN IVP 07/28/17 13:30 (Heparin Inj) 5,000 units Q8H SQ 07/28/17 15:00 08/04/17 06:23 (Narcan Inj) 0.4 mg UNSCH PRN IV PUSH 07/28/17 13:30 (Beatrice-Colace) 1 tab BID PO 07/28/17 21:00 08/04/17 07:59 (Protonix) 40 mg DAILY PO 07/29/17 09:00 08/04/17 07:59 (Catapres) 0.1 mg Q6H PRN PO 07/28/17 13:30 (NS Flush) 2 ml BID IV FLUSH 07/28/17 21:00 08/04/17 08:07 (NS Flush) 2 ml UNSCH PRN IV FLUSH 07/28/17 15:30 07/30/17 17:26 (Vasotec) 10 mg BID PO 07/28/17 21:00 08/04/17 08:00 (Proair Hfa Inh) 2 puff Q6H PRN INH 07/28/17 18:15 08/02/17 02:41 (Flagyl) 500 mg Q8H PO 07/29/17 18:00 08/04/17 08:03 (Levaquin) 750 mg Q24H PO 07/30/17 12:00 08/03/17 12:29 (Deltasone) 20 mg BID PO 07/31/17 21:00 08/04/17 07:59 (Miralax) 17 gm DAILY PO 08/01/17 09:00 08/02/17 08:46 (Duoneb Neb) 1 ampule Q4HR WHILE AWAKE NEB NEB 08/03/17 12:00 08/04/17 11:27 (Pulmicort Respule Neb) 0.25 mg Q12HR NEB NEB 08/03/17 08:45 08/04/17 08:58 (Folate) 1 mg DAILY PO 08/03/17 12:00 08/08/17 11:59 08/04/17 07:59 (Vitamin B1) 100 mg DAILY PO 08/03/17 12:00 08/04/17 07:59 (Theragran M Tab) 1 tab DAILY PO 08/03/17 12:00 08/08/17 11:59 08/04/17 07:59 (Darin Bryan MD R1) Urinary Catheter: No (Darin Bryan MD R1) Vascular Central Line Catheter: No (Darin Bryan MD R1) A/P Assessment and Plan 56YO transgender anatomically male but identifies as female w/PMHx HTN, COPD, tobacco and EtOH abuse presented with SOB and with CP after being found down by a neighbor after a night of drinking, 2 days of nonbloody, nonbilious emesis/ dry heaves and decreased PO intake for 4 days. Dx: metabolic acidosis due to EtOH intoxication and subsequent dehydration with COPD exacerbation vs aspiration PNA and possible cardiac ischemia. Pt met sepsis criteria on admit with WBC 12.1, tachycardia 122, RR 32, pulse ox 84% RA which has resolved. Pt CTA 08/03 is negative for PE but shows small bilateral pleural effusions w/ bibasilar atelectasis and emphysema. PNA has largely resolved as well as EtOH withdrawal sxs; however, pt is still intermittently tremulous from likely long- term EtOH use 08/04: Pt s/s for admission have largely resolved except pt still not safe for DC home; is still weak and unable to perform ADLs/IADLs w/o assistance. 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 Will assess for home supplemental O2 with walk test. Pt does have appt later this week with Dr Clifford as outpt. 08/03: Patient still tremulous exam. Still oxygen dependent. Only qualifies for home health care nursing. Does not feel well enough to go home. CIWA scores overnight ranged between 8-15. Still requiring Ativan [id number]. Will perform CTA to rule out PE due to sustained tachycardia and shortness of breath. 08/02: Pt electrolytes wnl w/normal anion gap and resolved metabolic acidosis. Pt is on day 5 of abx. Still has a cough, weakness, and requires assistance. Pt is tremulous when awake, IV ativan has been weaned and working to wean PO. CM reports that pt insurance likely will not support rehab following hospitalization; inquiring about other options. Still awaiting heme occult. AFVSS, afebrile with WBC 6.0. 07/31: Not much change clinically compared to the previous day. Sodium level is stable at 131, potassium within normal limits at 3.6. Patient still very tremulous, requiring IV Ativan. 07/30: Pt is tremulous/shaking on interview--spoke to nursing about being more aggressive with ativan for withdrawal/CIWA scoring due to prior withdrawal seizures. ST gave mech soft/thin liquid diet--added ensure/boost supplement w/ each meal to improve PO and caloric intake. Pt has an appetite which is a reassuring development. Hyponatremia slow to improve and still requiring increased IVF intake @125mls/hr. Mild hypokalemia 3.4 this morning--added 30meq PO KCl to replete. Pt states she is breathing much easier. Legionella neg but pneumococcal antigen positive; WBC 9.8, afebrile, Blood cx NGTD x1 day. Continue PO Flagyl, Levaquin, prednisone, duonebs for breathing, COPD/ aspiration. Will clinically follow and monitor. Seen and dw with Dr Ndiaye 1. Chest Pain - Resolved - likely demand ischemia 2/2 chronic EtOH intake complicated by aspiration/COPD exacerbation and subsequent hypoxia now resolved. ACS w/u negative. -ACS rule out complete - EKG x2 -- both show ischemia vs infarct - BNP wnl, Trops <0.02 x2 - Total CK wnl - TSH wnl - Lipase 123 - UDS positive cannabinoids - Mag wnl - ECHO 07/29: Mild left ventricle dilation, low normal EF: 50-55%, normal septal thickness, annular MV calcification w/trace MV regurg 2. Metabolic acidosis - Resolved - anion gap 17 and multiple electrolyte abnormalities on admit. 3. Electrolyte abnormalities: - Hyponatremia - Resolved. * Likely chronically depleted 2/2 EtOH abuse; Urine Osmo 413 wnl and Urine random Na 21 wnl suggestive of hypovolemic hyponatremia from dehydration and chronic EtOH use * Na 119 on admit -> improved to 135 this morning - discontinued IVF 08/01; follow BMP daily * Hypokalemia resolved on 07/30 - UDS positive cannabis - Salicylates, acetaminophen negative, EtOH <3 3. SEPSIS likely 2/2 RML PNA Resolved - however, still treating aspiration vs COPD exacerbation vs combo which is improving - CXR w/RML infiltrate, pt found down by neighbor after night of drinking - suspect aspiration PNA - Legionella ag negative but pneumococcal ag positive on 07/30 - Levaquin 750mg PO daily (07/28-) - Flagyl 500mg PO daily (07/29 -) - Prednisone 20mg daily; continue taper - Duonebs q4h while awake - Pulmicort nebulizer every 12 hours, albuterol inhaler as needed - IS -CTA 08/03 with results as above 4. EtOH withdrawal w/hx of withdrawal seizures -- CIWA scores 14 overnight on PO ativan -- Resolving - Pt with intermittent tremors on exam today - Discontinue CIWA protocol 08/04 - Nursing order to notify MD if increased agitation; can consider increasing freq or dosing of ativan if required - Thiamine, folate, mv - Zofran 4mg IV q6h - Protonix 40mg PO daily 5. Depression/Anxiety - Change to Fluoxetine 40mg/day - Continue home Busipirone 10mg daily - Hold Hydroxyzine 25mg TID for now - Hold home Trazodone 50mg hs for now 6. HTN - normotensive - Continue home elanapril 10mg daily - Hold HCTZ 12.5mg - Clonidine 0.1 mg PO q6h PRN if SBP >180 and/or DBP >100 7. FEN/GI/PPx Fluids: PO fluids Electrolytes: monitor and replete as necessary Nutrition: Per ST ok with mechanical soft/thin liquid diet with Boost/Ensure supplement at each meal GI: Protonix 40mg PO daily PPx: Heparin 5000 units q8h Tylenol 650mg PO q4h Pain control: Hold home Tramadol 50mg q4h for now Bowel regimen Discharge Planning Pending CM placement (if an option), vs discharge home when safe (Darin Bryan MD R1) Attending Attestation Patient seen and examined with Dr. Bryan. Case reviewed and discussed Agree with plan of care as discussed with me and documented in the resident note. (Hellen Ndiaye MD) Problem List: (1) Sepsis ICD Codes: A41.9 - Sepsis, unspecified organism (2) Chest pain at rest ICD Codes: R07.9 - Chest pain, unspecified (3) Increased anion gap metabolic acidosis ICD Codes: E87.2 - Acidosis (4) RML pneumonia ICD Codes: J18.1 - Lobar pneumonia, unspecified organism Status: Acute (5) Alcohol withdrawal ICD Codes: F10.239 - Alcohol dependence with withdrawal, unspecified Status: Acute (6) COPD exacerbation ICD Codes: J44.1 - Chronic obstructive pulmonary disease with (acute) exacerbation Status: Acute (7) Alcohol abuse ICD Codes: F10.10 - Alcohol abuse, uncomplicated Status: Acute (8) Tobacco abuse ICD Codes: Z72.0 - Tobacco abuse Status: Chronic (9) Hypertension ICD Codes: I10 - Hypertension Status: Chronic (10) Depression ICD Codes: F32.9 - Major depressive disorder, single episode, unspecified (11) FEN/GI/PPx (Darin Bryan MD R1) Problem Qualifiers (1) RML pneumonia: Qualified Codes: J18.1 - Lobar pneumonia, unspecified organism Darin Bryan MD R1 Aug 04, 2017 11:58 Hellen Ndiaye MD Aug 04, 2017 16:06
[2017-08-04] MEDS: LEVOFLOXACIN 750 MG TAB PO SCH (12:23)
[2017-08-05] VITALS (10 sets, daily range): BP systolic 109–127; BP diastolic 72–87; PULSE 80–110; RESP 16–21; TEMP 95.5–98.9; O2SAT 93–98
[2017-08-05] MEDS: LORazepam 1 MG TAB PO PRN ×3 (01:09→17:28)
[2017-08-05] MEDS: metroNIDAZOLE 500 MG TAB PO SCH (01:09)
[2017-08-05] MEDS: HEPARIN SODIUM - SQ 10,000 UNITS/ML VIAL SQ SCH ×3 (05:49→22:18)
[2017-08-05 05:56] LABS: HEMATOCRIT 27.5 % (35.0-46.0); HEMOGLOBIN 9.3 GM/DL (11.6-15.3); MEAN CELL VOLUME 103.4 FL (80.0-100.0); MEAN CORPUSCULAR HEMOGLOBIN 35.1 PG (27.0-34.0); MEAN CORPUSCULAR HGB CONC 33.9 % (32.0-36.0); MEAN PLATELET VOLUME 6.4 FL (7.0-11.0); PLATELET COUNT 366 TH/MM3 (150-450); RED BLOOD COUNT 2.66 MIL/MM3 (4.00-5.30); RED CELL DISTRIBUTION WIDTH 21.4 % (11.6-17.2); WHITE BLOOD COUNT 6.3 TH/MM3 (4.0-11.0)
[2017-08-05 06:23] LABS: BICARBONATE 29.5 MEQ/L (21.0-32.0); CALCIUM 8.3 MG/DL (8.5-10.1); CREATININE 0.59 MG/DL (0.50-1.00)
[2017-08-05] MEDS ORDERED: POTASSIUM CHLORIDE 20 MEQ CONTROLLED RELEASE TAB PO ONE (07:15)
[2017-08-05] MEDS: RESP: BUDESONIDE 0.5 MG/2 ML NEB NEB SCH ×2 (07:46→20:33)
[2017-08-05] MEDS: RESP: ALBUTEROL 2.5 MG/IPRATROPIUM 0.5 MG NEB (SCH) NEB ×3 (07:46→20:00)
[2017-08-05] MEDS: SODIUM CHLORIDE 0.9% FLUSH 10 ML FLUSH IV FLUSH SCH ×2 (09:00→22:18)
[2017-08-05] MEDS: POLYETHYLENE GLYCOL 17 GM PKG PO SCH (09:00)
--- NOTE | 2017-08-05 09:16 | HHI.FPPN ---
Subjective Remarks Ms Bauer had no acute events overnight. She is clean shaven this morning and slept about 4 hours, increased since yesterday's report, but feels like her arms are "puffy" this morning. Pt ate all of her breakfast. PT reports her walk endurance is improving and there is no desaturation below 93%. The pt still does not feel safe to go home due to continued weakness and being SOB walking to the bathroom. CM is working on possible placement options for now. Pt pain controlled, taking PO, voiding, stooling and ambulating with assistance. Denies CP, N/V/D, DVT pain. (Darin Bryan MD R1) Objective Vitals Vital Signs Date Time Temp Pulse Resp B/P (MAP) Pulse Ox O2 Delivery O2 Flow Rate FiO2 08/05/17 08:00 95.5 110 21 109/72 (84) 94 08/05/17 07:49 95 Nasal Cannula 2.00 08/05/17 05:35 97.5 104 18 125/84 (98) 96 08/05/17 00:37 98.9 80 17 119/82 (94) 96 08/04/17 23:45 110 08/04/17 21:01 98 Nasal Cannula 2.00 08/04/17 20:00 97.2 78 18 132/76 (94) 93 08/04/17 20:00 95 08/04/17 16:00 97.2 109 19 118/74 (89) 98 08/04/17 12:00 95.4 112 19 111/71 (84) 96 I/O 08/04/17 08/04/17 08/04/17 08/05/17 08/05/17 08/05/17 07:00 15:00 23:00 07:00 15:00 23:00 Intake Total 1764 ml 580 ml Output Total 1000 ml 200 ml Balance -1000 ml 1564 ml 580 ml Intake Oral 1764 ml 580 ml Output Urine Total 1000 ml 200 ml # Voids 2 4 # Bowel Movements 1 3 (Darin Bryan MD R1) Result Diagram: 08/05/1743808/05/17438 Objective Remarks GENERAL: This is an anatomically male, transgender female with intermittent tremors and dense, clean shaven today, anxious, lying in bed but improved SKIN: No rashes, ecchymoses or lesions. Cool and dry. NECK: Trachea midline. No lymphadenopathy. Supple, nontender, no meningeal signs CARDIOVASCULAR: Regular rate and rhythm without murmur, gallop, or rub RESPIRATORY: Clear to auscultation. Breath sounds equal bilaterally but distant , improved air movement bilaterally; no wheezes, rales or rhonchi GASTROINTESTINAL: Abdomen soft, non-tender, nondistended. No hepato-splenomegaly , or palpable masses. No guarding. MUSCULOSKELETAL: Extremities without clubbing, cyanosis, or edema. No joint tenderness, effusion, or edema noted. No calf tenderness NEUROLOGICAL: Awake and alert. Cranial nerves II through XII intact. Motor and sensory grossly within normal limits. Normal speech Procedures ECHO 2D Doppler 07/30/17 - Dr Palumbo CONCLUSIONS Mildly dilated left ventricle. Wall thickness is normal. The left ventricular systolic function is low normal with an estimated ejection fraction in the range of 50- 55%. Mitral annular calcification is present. Trace mitral valve regurgitation. Medications and IVs Current Medications Medications (Trade) Dose Ordered Sig/Castillo Route Start Time Stop Time Status Last Admin (Symbicort 160-4.5 Mcg Inh) 2 puff Q12HR INH 07/28/17 12:45 Future Hold 08/02/17 22:14 (Buspar) 10 mg BID PO 07/28/17 21:00 08/04/17 21:42 (Spiriva Inh) 18 mcg DAILY INH 07/28/17 14:00 Future Hold 08/01/17 08:49 (Tylenol) 650 mg Q4H PRN PO 07/28/17 13:30 08/02/17 08:55 (Zofran Inj) 4 mg Q6H PRN IVP 07/28/17 13:30 (Heparin Inj) 5,000 units Q8H SQ 07/28/17 15:00 08/05/17 05:49 (Narcan Inj) 0.4 mg UNSCH PRN IV PUSH 07/28/17 13:30 (Beatrice-Colace) 1 tab BID PO 07/28/17 21:00 08/04/17 07:59 (Protonix) 40 mg DAILY PO 07/29/17 09:00 08/04/17 07:59 (Catapres) 0.1 mg Q6H PRN PO 07/28/17 13:30 (NS Flush) 2 ml BID IV FLUSH 07/28/17 21:00 08/04/17 21:42 (NS Flush) 2 ml UNSCH PRN IV FLUSH 07/28/17 15:30 07/30/17 17:26 (Vasotec) 10 mg BID PO 07/28/17 21:00 08/04/17 21:42 (Proair Hfa Inh) 2 puff Q6H PRN INH 07/28/17 18:15 08/02/17 02:41 (Levaquin) 750 mg Q24H PO 07/30/17 12:00 08/04/17 12:23 (Miralax) 17 gm DAILY PO 08/01/17 09:00 08/02/17 08:46 (Duoneb Neb) 1 ampule Q4HR WHILE AWAKE NEB NEB 08/03/17 12:00 08/05/17 07:46 (Pulmicort Respule Neb) 0.25 mg Q12HR NEB NEB 08/03/17 08:45 08/05/17 07:46 (Folate) 1 mg DAILY PO 08/03/17 12:00 08/08/17 11:59 08/04/17 07:59 (Vitamin B1) 100 mg DAILY PO 08/03/17 12:00 08/04/17 07:59 (Theragran M Tab) 1 tab DAILY PO 08/03/17 12:00 08/08/17 11:59 08/04/17 07:59 (PROzac) 40 mg DAILY PO 08/05/17 09:00 (Ativan) 1 mg Q8H PRN PO 08/04/17 14:30 08/05/17 01:09 (Deltasone) 20 mg DAILY PO 08/05/17 09:00 (Darin Bryan MD R1) Urinary Catheter: No (Darin Bryan MD R1) Vascular Central Line Catheter: No (Darin Bryan MD R1) A/P Assessment and Plan 56YO transgender anatomically male but identifies as female w/PMHx HTN, COPD, tobacco and EtOH abuse presented with SOB and with CP after being found down by a neighbor after a night of drinking, 2 days of nonbloody, nonbilious emesis/ dry heaves and decreased PO intake for 4 days. Dx: metabolic acidosis due to EtOH intoxication and subsequent dehydration with COPD exacerbation vs aspiration PNA and possible cardiac ischemia. Pt met sepsis criteria on admit with WBC 12.1, tachycardia 122, RR 32, pulse ox 84% RA which has resolved. Pt CTA 08/03 is negative for PE but shows small bilateral pleural effusions w/ bibasilar atelectasis and emphysema. PNA has largely resolved as well as EtOH withdrawal sxs; however, pt is still intermittently tremulous from likely long- term EtOH use 08/05: Continues to improve with increased PO intake/appetite. Worked well with PT yesterday, increasing walk distance without desaturation. Encouraged to work with PT today. CM working on potential placement options. Decreased dosing/ frequency ativan 1mg PO q8h for tremors and anxiety. Increased Prozac to 40mg daily. 08/04: Pt s/s for admission have largely resolved except pt still not safe for DC home; is still weak and unable to perform ADLs/IADLs w/o assistance. 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 Will assess for home supplemental O2 with walk test. Pt does have appt later this week with Dr Clifford as outpt. 08/03: Patient still tremulous exam. Still oxygen dependent. Only qualifies for home health care nursing. Does not feel well enough to go home. CIWA scores overnight ranged between 8-15. Still requiring Ativan [id number]. Will perform CTA to rule out PE due to sustained tachycardia and shortness of breath. 08/02: Pt electrolytes wnl w/normal anion gap and resolved metabolic acidosis. Pt is on day 5 of abx. Still has a cough, weakness, and requires assistance. Pt is tremulous when awake, IV ativan has been weaned and working to wean PO. CM reports that pt insurance likely will not support rehab following hospitalization; inquiring about other options. Still awaiting heme occult. AFVSS, afebrile with WBC 6.0. 07/31: Not much change clinically compared to the previous day. Sodium level is stable at 131, potassium within normal limits at 3.6. Patient still very tremulous, requiring IV Ativan. 07/30: Pt is tremulous/shaking on interview--spoke to nursing about being more aggressive with ativan for withdrawal/CIWA scoring due to prior withdrawal seizures. ST gave mech soft/thin liquid diet--added ensure/boost supplement w/ each meal to improve PO and caloric intake. Pt has an appetite which is a reassuring development. Hyponatremia slow to improve and still requiring increased IVF intake @125mls/hr. Mild hypokalemia 3.4 this morning--added 30meq PO KCl to replete. Pt states she is breathing much easier. Legionella neg but pneumococcal antigen positive; WBC 9.8, afebrile, Blood cx NGTD x1 day. Continue PO Flagyl, Levaquin, prednisone, duonebs for breathing, COPD/ aspiration. Will clinically follow and monitor. Seen and dw with Dr Ndiaye 1. Chest Pain - Resolved - likely demand ischemia 2/2 chronic EtOH intake complicated by aspiration/COPD exacerbation and subsequent hypoxia now resolved. ACS w/u negative. -ACS rule out complete - EKG x2 -- both show ischemia vs infarct - BNP wnl, Trops <0.02 x2 - Total CK wnl - TSH wnl - Lipase 123 - UDS positive cannabinoids - Mag wnl - ECHO 07/29: Mild left ventricle dilation (likely 2/2 chronic EtOH intoxication) , low normal EF: 50-55%, normal septal thickness, annular MV calcification w/ trace MV regurg 2. Metabolic acidosis - Resolved - anion gap 17 and multiple electrolyte abnormalities on admit. 3. Electrolyte abnormalities: - Hyponatremia - Resolved. * Likely chronically depleted 2/2 EtOH abuse; Urine Osmo 413 wnl and Urine random Na 21 wnl suggestive of hypovolemic hyponatremia from dehydration and chronic EtOH use * Na 119 on admit -> improved to 135 this morning - discontinued IVF 08/01; follow BMP daily * Hypokalemia resolved on 07/30; 3.4 this morning -> KCl 20meq PO once - UDS positive cannabis - Salicylates, acetaminophen negative, EtOH <3 3. SEPSIS likely 2/2 RML PNA Resolved - however, still treating aspiration vs COPD exacerbation vs combo which is improving - CXR w/RML infiltrate, pt found down by neighbor after night of drinking - suspect aspiration PNA - Legionella ag negative but pneumococcal ag positive on 07/30 - Discontinue Levaquin 750mg PO daily (07/28-08/05) - Discontinue Flagyl 500mg PO daily (07/29-08/05) - Prednisone 20mg daily; continue taper - Duonebs q4h while awake - Pulmicort nebulizer every 12 hours, albuterol inhaler as needed - IS -CTA 08/03 with results as above 4. EtOH withdrawal w/hx of withdrawal seizures -- CIWA scores 14 overnight on PO ativan -- Resolving - Pt with intermittent tremors on exam today - Discontinued CIWA protocol 08/04 - Nursing order to notify MD if increased agitation; can consider increasing freq or dosing of ativan if required - Thiamine, folate, mv - Zofran 4mg IV q6h - Protonix 40mg PO daily 5. Depression/Anxiety - Fluoxetine 40mg/day - Continue home Busipirone 10mg daily - Hold Hydroxyzine 25mg TID for now - Hold home Trazodone 50mg hs for now 6. HTN - normotensive - Continue home elanapril 10mg daily - Hold HCTZ 12.5mg - Clonidine 0.1 mg PO q6h PRN if SBP >180 and/or DBP >100 7. FEN/GI/PPx Fluids: PO fluids Electrolytes: monitor and replete as necessary Nutrition: Per ST ok with mechanical soft/thin liquid diet with Boost/Ensure supplement at each meal GI: Protonix 40mg PO daily PPx: Heparin 5000 units q8h Tylenol 650mg PO q4h Pain control: Hold home Tramadol 50mg q4h for now Bowel regimen Discharge Planning Pending CM placement (if an option), vs discharge home when safe (Darin Bryan MD R1) Attending Attestation Patient seen and examined. Case reviewed and discussed. Agree with plan of care as discussed with me and documented in the resident note. (Hellen Ndiaye MD) Problem List: (1) Sepsis ICD Codes: A41.9 - Sepsis, unspecified organism (2) Chest pain at rest ICD Codes: R07.9 - Chest pain, unspecified (3) Increased anion gap metabolic acidosis ICD Codes: E87.2 - Acidosis (4) RML pneumonia ICD Codes: J18.1 - Lobar pneumonia, unspecified organism Status: Acute (5) Alcohol withdrawal ICD Codes: F10.239 - Alcohol dependence with withdrawal, unspecified Status: Acute (6) COPD exacerbation ICD Codes: J44.1 - Chronic obstructive pulmonary disease with (acute) exacerbation Status: Acute (7) Alcohol abuse ICD Codes: F10.10 - Alcohol abuse, uncomplicated Status: Acute (8) Tobacco abuse ICD Codes: Z72.0 - Tobacco abuse Status: Chronic (9) Hypertension ICD Codes: I10 - Hypertension Status: Chronic (10) Depression ICD Codes: F32.9 - Major depressive disorder, single episode, unspecified (11) FEN/GI/PPx (Darin Bryan MD R1) Problem Qualifiers (1) RML pneumonia: Qualified Codes: J18.1 - Lobar pneumonia, unspecified organism (2) Depression: Qualified Codes: F33.1 - Major depressive disorder, recurrent, moderate Darin Bryan MD R1 Aug 05, 2017 09:16 Hellen Ndiaye MD Aug 09, 2017 09:13
[2017-08-05] MEDS: FLUoxetine HCL 20 MG CAP PO SCH (09:17)
[2017-08-05] MEDS: predniSONE 20 MG TAB PO SCH (09:17)
[2017-08-05] MEDS: FOLIC ACID 1 MG TAB PO SCH (09:18)
[2017-08-05] MEDS: DOCUSATE SODIUM 50 MG/SENNA 8.6 MG TAB PO SCH ×2 (09:18→21:00)
[2017-08-05] MEDS: ENALAPRIL MALEATE 10 MG TAB PO SCH ×2 (09:18→22:15)
[2017-08-05] MEDS: MULTIVITAMINS/MINERALS THERAPEUTIC TAB PO SCH (09:18)
[2017-08-05] MEDS: PANTOPRAZOLE SOD 40 MG DELAYED RELEASE TAB PO SCH (09:18)
[2017-08-05] MEDS: busPIRone HCL 10 MG TAB PO SCH ×2 (09:18→22:14)
[2017-08-05] MEDS: THIAMINE HCL 100 MG TAB PO SCH (09:18)
[2017-08-05] MEDS: LEVOFLOXACIN 750 MG TAB PO SCH (14:12)
[2017-08-06] VITALS (9 sets, daily range): BP systolic 109–135; BP diastolic 73–93; PULSE 87–114; RESP 14–21; TEMP 97–99; O2SAT 94–99
[2017-08-06] MEDS: LORazepam 1 MG TAB PO PRN ×3 (01:29→18:12)
[2017-08-06] MEDS: HEPARIN SODIUM - SQ 10,000 UNITS/ML VIAL SQ SCH ×3 (05:30→21:28)
[2017-08-06 07:21] LABS: HEMATOCRIT 26.9 % (35.0-46.0); HEMOGLOBIN 9.2 GM/DL (11.6-15.3); MEAN CELL VOLUME 103.9 FL (80.0-100.0); MEAN CORPUSCULAR HEMOGLOBIN 35.5 PG (27.0-34.0); MEAN CORPUSCULAR HGB CONC 34.2 % (32.0-36.0); MEAN PLATELET VOLUME 6.6 FL (7.0-11.0); PLATELET COUNT 334 TH/MM3 (150-450); RED BLOOD COUNT 2.59 MIL/MM3 (4.00-5.30); RED CELL DISTRIBUTION WIDTH 20.9 % (11.6-17.2)
[2017-08-06 07:37] LABS: BICARBONATE 32.4 MEQ/L (21.0-32.0); CALCIUM 8.5 MG/DL (8.5-10.1); CREATININE 0.59 MG/DL (0.50-1.00)
[2017-08-06] MEDS: RESP: ALBUTEROL 2.5 MG/IPRATROPIUM 0.5 MG NEB (SCH) NEB ×4 (08:00→19:46)
[2017-08-06] MEDS: RESP: BUDESONIDE 0.5 MG/2 ML NEB NEB SCH ×2 (08:06→19:46)
[2017-08-06] MEDS: POLYETHYLENE GLYCOL 17 GM PKG PO SCH (09:00)
[2017-08-06] MEDS: DOCUSATE SODIUM 50 MG/SENNA 8.6 MG TAB PO SCH ×2 (09:00→21:00)
[2017-08-06] MEDS: ENALAPRIL MALEATE 10 MG TAB PO SCH ×2 (09:01→21:26)
[2017-08-06] MEDS: busPIRone HCL 10 MG TAB PO SCH ×2 (09:01→21:26)
[2017-08-06] MEDS: predniSONE 20 MG TAB PO SCH (09:01)
[2017-08-06] MEDS: FOLIC ACID 1 MG TAB PO SCH (09:01)
[2017-08-06] MEDS: PANTOPRAZOLE SOD 40 MG DELAYED RELEASE TAB PO SCH (09:01)
[2017-08-06] MEDS: MULTIVITAMINS/MINERALS THERAPEUTIC TAB PO SCH (09:01)
[2017-08-06] MEDS: THIAMINE HCL 100 MG TAB PO SCH (09:01)
[2017-08-06] MEDS: FLUoxetine HCL 20 MG CAP PO SCH (09:01)
[2017-08-06] MEDS: SODIUM CHLORIDE 0.9% FLUSH 10 ML FLUSH IV FLUSH SCH ×2 (09:02→21:28)
--- NOTE | 2017-08-06 14:12 | HHI.FPPN ---
Subjective Remarks Pt seen and examined this morning. No acute events overnight. Pt reports doing well this morning. She denies chest pain, abdominal pain. She reports feeling short of breath when she gets up and walks around without oxygen. She worked with physical therapy today and [place]. She has no additional acute concerns. (Dahiana Goldsmith MD R3) Objective Vitals Vital Signs Date Time Temp Pulse Resp B/P (MAP) Pulse Ox O2 Delivery O2 Flow Rate FiO2 08/06/17 12:00 97.0 88 17 109/73 (85) 98 08/06/17 08:35 94 Nasal Cannula 3.00 08/06/17 08:07 99 Nasal Cannula 4.00 08/06/17 08:00 97.4 114 17 120/86 (97) 97 08/06/17 04:33 98.1 109 21 129/86 (100) 95 08/06/17 00:50 99.0 87 20 135/93 (107) 97 08/05/17 22:38 91 08/05/17 20:00 96.9 89 18 127/87 (100) 98 08/05/17 16:54 97 Nasal Cannula 2.00 08/05/17 16:54 2.00 08/05/17 16:00 97.3 89 16 121/79 (93) 96 I/O 08/05/17 08/05/17 08/05/17 08/06/17 08/06/17 08/06/17 07:00 15:00 23:00 07:00 15:00 23:00 Intake Total 580 ml 1000 ml 680 ml Balance 580 ml 1000 ml 680 ml Intake Oral 580 ml 1000 ml 680 ml # Voids 4 4 4 # Bowel Movements 1 0 (Dahiana Goldsmith MD R3) Result Diagram: 08/06/17 0500 08/06/17 0500 Objective Remarks GENERAL: This is an anatomically male, transgender female sitting up in a chair , in no acute distress SKIN: Cool and dry. NECK: Trachea midline. No lymphadenopathy. Supple, nontender, no meningeal signs CARDIOVASCULAR: Regular rate and rhythm without murmur, gallop, or rub RESPIRATORY: Clear to auscultation. Breath sounds equal bilaterally but distant , improved air movement bilaterally; no wheezes, rales or rhonchi GASTROINTESTINAL: Abdomen soft, non-tender, nondistended. No hepato-splenomegaly , or palpable masses. No guarding. MUSCULOSKELETAL: Extremities without clubbing, cyanosis. Mild pitting edema of upper and lower extremities. NEUROLOGICAL: Awake and alert. Cranial nerves II through XII intact. Motor and sensory grossly within normal limits. Normal speech Procedures ECHO 2D Doppler 07/30/17 - Dr Palumbo CONCLUSIONS Mildly dilated left ventricle. Wall thickness is normal. The left ventricular systolic function is low normal with an estimated ejection fraction in the range of 50- 55%. Mitral annular calcification is present. Trace mitral valve regurgitation. (Dahiana Goldsmith MD R3) A/P Assessment and Plan 56YO transgender anatomically male but identifies as female w/PMHx HTN, COPD, tobacco and EtOH abuse presented with SOB and with CP after being found down by a neighbor after a night of drinking, 2 days of nonbloody, nonbilious emesis/ dry heaves and decreased PO intake for 4 days. Dx: metabolic acidosis due to EtOH intoxication and subsequent dehydration with COPD exacerbation vs aspiration PNA and possible cardiac ischemia. Pt met sepsis criteria on admit with WBC 12.1, tachycardia 122, RR 32, pulse ox 84% RA which has resolved. Pt CTA 08/03 is negative for PE but shows small bilateral pleural effusions w/ bibasilar atelectasis and emphysema. PNA has largely resolved as well as EtOH withdrawal sxs; however, pt is still intermittently tremulous from likely long- term EtOH use 08/06: Pt worked with PT, now Home with home health PT recommended. CM working to arrange placement. 08/05: Continues to improve with increased PO intake/appetite. Worked well with PT yesterday, increasing walk distance without desaturation. Encouraged to work with PT today. CM working on potential placement options. Decreased dosing/ frequency ativan 1mg PO q8h for tremors and anxiety. Increased Prozac to 40mg daily. 08/04: Pt s/s for admission have largely resolved except pt still not safe for DC home; is still weak and unable to perform ADLs/IADLs w/o assistance. 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 Will assess for home supplemental O2 with walk test. Pt does have appt later this week with Dr Clifford as outpt. 08/03: Patient still tremulous exam. Still oxygen dependent. Only qualifies for home health care nursing. Does not feel well enough to go home. CIWA scores overnight ranged between 8-15. Still requiring Ativan [id number]. Will perform CTA to rule out PE due to sustained tachycardia and shortness of breath. 08/02: Pt electrolytes wnl w/normal anion gap and resolved metabolic acidosis. Pt is on day 5 of abx. Still has a cough, weakness, and requires assistance. Pt is tremulous when awake, IV ativan has been weaned and working to wean PO. CM reports that pt insurance likely will not support rehab following hospitalization; inquiring about other options. Still awaiting heme occult. AFVSS, afebrile with WBC 6.0. 07/31: Not much change clinically compared to the previous day. Sodium level is stable at 131, potassium within normal limits at 3.6. Patient still very tremulous, requiring IV Ativan. 07/30: Pt is tremulous/shaking on interview--spoke to nursing about being more aggressive with ativan for withdrawal/CIWA scoring due to prior withdrawal seizures. ST gave mech soft/thin liquid diet--added ensure/boost supplement w/ each meal to improve PO and caloric intake. Pt has an appetite which is a reassuring development. Hyponatremia slow to improve and still requiring increased IVF intake @125mls/hr. Mild hypokalemia 3.4 this morning--added 30meq PO KCl to replete. Pt states she is breathing much easier. Legionella neg but pneumococcal antigen positive; WBC 9.8, afebrile, Blood cx NGTD x1 day. Continue PO Flagyl, Levaquin, prednisone, duonebs for breathing, COPD/ aspiration. Will clinically follow and monitor. 1. Chest Pain - Resolved - likely demand ischemia 2/2 chronic EtOH intake complicated by aspiration/COPD exacerbation and subsequent hypoxia now resolved. ACS w/u negative. -ACS ruled out - BNP wnl, Trops <0.02 x2 - Total CK wnl - TSH wnl - Lipase 123 - UDS positive cannabinoids - Mag wnl - ECHO 07/29: Mild left ventricle dilation (likely 2/2 chronic EtOH intoxication) , low normal EF: 50-55%, normal septal thickness, annular MV calcification w/ trace MV regurg 2. Electrolyte abnormalities: - Hyponatremia - Improved. * Likely chronically depleted 2/2 EtOH abuse; Urine Osmo 413 wnl and Urine random Na 21 wnl suggestive of hypovolemic hyponatremia from dehydration and chronic EtOH use * Na 119 on admit -> improved to 135 this morning - discontinued IVF 08/01; follow BMP daily * Hypokalemia resolved - UDS positive cannabis - Salicylates, acetaminophen negative, EtOH <3 3.COPD exacerbation vs Aspiration, Antibiotic treatment completed - CXR w/RML infiltrate, pt found down by neighbor after night of drinking - suspect aspiration PNA - Legionella ag negative but pneumococcal ag positive on 07/30 - Discontinue Levaquin 750mg PO daily (07/28-08/05) - Discontinue Flagyl 500mg PO daily (07/29-08/05) - Prednisone 20mg daily; continue taper - Duonebs q4h while awake - Pulmicort nebulizer every 12 hours, albuterol inhaler as needed - IS -CTA 08/03 negative for PE 4. EtOH withdrawal w/hx of withdrawal seizures -Stable - Pt with improved tremors - Discontinued CIWA protocol 08/04 - Nursing order to notify MD if increased agitation; can consider increasing freq or dosing of ativan if required - Thiamine, folate, mv - Zofran 4mg IV q6h - Protonix 40mg PO daily 5. Depression/Anxiety - Fluoxetine 40mg/day - Continue home Busipirone 10mg BID - Hold Hydroxyzine 25mg TID for now - Hold home Trazodone 50mg hs for now 6. HTN - normotensive - Continue home elanapril 10mg BID - Hold HCTZ 12.5mg - Clonidine 0.1 mg PO q6h PRN if SBP >180 and/or DBP >100 7. FEN/GI/PPx Fluids: PO fluids Electrolytes: monitor and replete as necessary Nutrition: Per ST ok with mechanical soft/thin liquid diet with Boost/Ensure supplement at each meal GI: Protonix 40mg PO daily PPx: Heparin 5000 units q8h Tylenol 650mg PO q4h Pain control: Hold home Tramadol 50mg q4h for now Discharge Planning Pending rehab placement vs home with home health and out patient PT (Dahiana Goldsmith MD R3) Attending Attestation Patient seen and examined. Case reviewed and discussed. Agree with plan of care as discussed with me and documented in the resident note. (Hellen Ndiaye MD) Problem List: (1) Chest pain at rest ICD Codes: R07.9 - Chest pain, unspecified (2) RML pneumonia ICD Codes: J18.1 - Lobar pneumonia, unspecified organism Status: Acute (3) Alcohol withdrawal ICD Codes: F10.239 - Alcohol dependence with withdrawal, unspecified Status: Acute (4) COPD exacerbation ICD Codes: J44.1 - Chronic obstructive pulmonary disease with (acute) exacerbation Status: Acute (5) Alcohol abuse ICD Codes: F10.10 - Alcohol abuse, uncomplicated Status: Acute (6) Tobacco abuse ICD Codes: Z72.0 - Tobacco abuse Status: Chronic (7) Hypertension ICD Codes: I10 - Hypertension Status: Chronic (8) Depression ICD Codes: F32.9 - Major depressive disorder, single episode, unspecified (9) FEN/GI/PPx (Dahiana Goldsmith MD R3) Problem Qualifiers (1) RML pneumonia: Qualified Codes: J18.1 - Lobar pneumonia, unspecified organism (2) Depression: Qualified Codes: F33.1 - Major depressive disorder, recurrent, moderate Dahiana Goldsmith MD R3 Aug 06, 2017 14:12 Hellen Ndiaye MD Aug 09, 2017 09:13
[2017-08-07] VITALS (8 sets, daily range): BP systolic 116–125; BP diastolic 78–91; PULSE 80–101; RESP 14–18; TEMP 96.5–98.8; O2SAT 87–100
[2017-08-07] MEDS: LORazepam 1 MG TAB PO PRN ×2 (05:38→21:42)
[2017-08-07] MEDS: HEPARIN SODIUM - SQ 10,000 UNITS/ML VIAL SQ SCH ×3 (05:39→21:51)
[2017-08-07 06:47] LABS: HEMATOCRIT 25.4 % (35.0-46.0); HEMOGLOBIN 8.7 GM/DL (11.6-15.3); MEAN CELL VOLUME 104.1 FL (80.0-100.0); MEAN CORPUSCULAR HEMOGLOBIN 35.6 PG (27.0-34.0); MEAN CORPUSCULAR HGB CONC 34.2 % (32.0-36.0); MEAN PLATELET VOLUME 6.5 FL (7.0-11.0); PLATELET COUNT 299 TH/MM3 (150-450); RED BLOOD COUNT 2.44 MIL/MM3 (4.00-5.30); RED CELL DISTRIBUTION WIDTH 21.2 % (11.6-17.2); WHITE BLOOD COUNT 6.2 TH/MM3 (4.0-11.0)
[2017-08-07 07:13] LABS: CALCIUM 8.7 MG/DL (8.5-10.1); CREATININE 0.52 MG/DL (0.50-1.00)
[2017-08-07] MEDS: POLYETHYLENE GLYCOL 17 GM PKG PO SCH (09:00)
[2017-08-07] MEDS: DOCUSATE SODIUM 50 MG/SENNA 8.6 MG TAB PO SCH ×2 (09:00→21:00)
[2017-08-07] MEDS: SODIUM CHLORIDE 0.9% FLUSH 10 ML FLUSH IV FLUSH SCH ×2 (09:00→21:52)
[2017-08-07] MEDS: THIAMINE HCL 100 MG TAB PO SCH (09:13)
[2017-08-07] MEDS: predniSONE 20 MG TAB PO SCH (09:13)
[2017-08-07] MEDS: PANTOPRAZOLE SOD 40 MG DELAYED RELEASE TAB PO SCH (09:14)
[2017-08-07] MEDS: FLUoxetine HCL 20 MG CAP PO SCH (09:14)
[2017-08-07] MEDS: FOLIC ACID 1 MG TAB PO SCH (09:14)
[2017-08-07] MEDS: ENALAPRIL MALEATE 10 MG TAB PO SCH ×2 (09:14→21:43)
[2017-08-07] MEDS: MULTIVITAMINS/MINERALS THERAPEUTIC TAB PO SCH (09:14)
[2017-08-07] MEDS: busPIRone HCL 10 MG TAB PO SCH ×2 (09:15→21:42)
[2017-08-07] MEDS: RESP: ALBUTEROL 2.5 MG/IPRATROPIUM 0.5 MG NEB (SCH) NEB (09:22)
[2017-08-07] MEDS: RESP: BUDESONIDE 0.5 MG/2 ML NEB NEB SCH ×2 (09:23→20:07)
--- NOTE | 2017-08-07 10:30 | HHI.FPPN ---
Subjective Remarks [place]. She is not as short of breath as before, but still requires oxygen. She is not requiring her inhalers as much as she was before. She understands that she will be going home from the hospital and not to acute rehabilitation. (Mikayla Guerrero MD R2) Objective Vitals Vital Signs Date Time Temp Pulse Resp B/P (MAP) Pulse Ox O2 Delivery O2 Flow Rate FiO2 08/07/17 09:24 100 Nasal Cannula 3.00 08/07/17 08:00 96.7 84 17 116/81 (93) 94 08/07/17 04:00 97.4 80 14 118/88 (98) 100 08/07/17 00:00 97.4 101 14 119/91 (100) 100 08/06/17 20:00 97.2 87 14 118/78 (91) 98 08/06/17 16:00 97.0 91 17 115/84 (94) 97 08/06/17 15:47 98 Nasal Cannula 3.00 08/06/17 12:00 97.0 88 17 109/73 (85) 98 I/O 08/06/17 08/06/17 08/06/17 08/07/17 08/07/17 08/07/17 07:00 15:00 23:00 07:00 15:00 23:00 Intake Total 680 ml 444 ml 480 ml Balance 680 ml 444 ml 480 ml Intake Oral 680 ml 444 ml 480 ml # Voids 4 4 1 # Bowel Movements 0 2 0 (Mikayla Guerrero MD R2) Result Diagram: 08/07/1730 08/07/17 0630 Objective Remarks GENERAL: This is an anatomically male, transgender [place], still has some tremors but much reduced SKIN: Cool and dry. NECK: Trachea midline. No lymphadenopathy. Supple, nontender, no meningeal signs CARDIOVASCULAR: Regular rate and rhythm without murmur, gallop, or rub RESPIRATORY: Clear to auscultation. Breath sounds equal bilaterally, improved air movement bilaterally; no wheezes, rales or rhonchi GASTROINTESTINAL: Abdomen soft, non-tender, nondistended. No hepato-splenomegaly , or palpable masses. No guarding. MUSCULOSKELETAL: Extremities without clubbing, cyanosis. Mild pitting edema of upper and lower extremities. NEUROLOGICAL: Awake and alert. Cranial nerves II through XII intact. Motor and sensory grossly within normal limits. Normal speech Procedures ECHO 2D Doppler 07/30/17 - Dr Palumbo CONCLUSIONS Mildly dilated left ventricle. Wall thickness is normal. The left ventricular systolic function is low normal with an estimated ejection fraction in the range of 50- 55%. Mitral annular calcification is present. Trace mitral valve regurgitation. (Eko,Mikayla U R2) A/P Assessment and Plan 56YO transgender anatomically male but identifies as female w/PMHx HTN, COPD, tobacco and EtOH abuse presented with SOB and with CP after being found down by a neighbor after a night of drinking, 2 days of nonbloody, nonbilious emesis/ dry heaves and decreased PO intake for 4 days. Dx: metabolic acidosis due to EtOH intoxication and subsequent dehydration with COPD exacerbation vs aspiration PNA and possible cardiac ischemia. Pt met sepsis criteria on admit with WBC 12.1, tachycardia 122, RR 32, pulse ox 84% RA which has resolved. Pt CTA 08/03 is negative for PE but shows small bilateral pleural effusions w/ bibasilar atelectasis and emphysema. PNA has largely resolved as well as EtOH withdrawal sxs; however, pt is still intermittently tremulous from likely long- term EtOH use 08/06: Pt seen working with PT, now Home with home health PT recommended. [facility] at home will provide some free physical therapy visits for patient. Plan for discharge on Wednesday08/09/201708/06: Pt worked with PT, now Home with home health PT recommended. CM working to arrange placement. 08/05: Continues to improve with increased PO intake/appetite. Worked well with PT yesterday, increasing walk distance without desaturation. Encouraged to work with PT today. CM working on potential placement options. Decreased dosing/ frequency ativan 1mg PO q8h for tremors and anxiety. Increased Prozac to 40mg daily. 08/04: Pt s/s for admission have largely resolved except pt still not safe for DC home; is still weak and unable to perform ADLs/IADLs w/o assistance. 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 Will assess for home supplemental O2 with walk test. Pt does have appt later this week with Dr Clifford as outpt. 08/03: Patient still tremulous exam. Still oxygen dependent. Only qualifies for home health care nursing. Does not feel well enough to go home. CIWA scores overnight ranged between 8-15. Still requiring Ativan [id number]. Will perform CTA to rule out PE due to sustained tachycardia and shortness of breath. 08/02: Pt electrolytes wnl w/normal anion gap and resolved metabolic acidosis. Pt is on day 5 of abx. Still has a cough, weakness, and requires assistance. Pt is tremulous when awake, IV ativan has been weaned and working to wean PO. CM reports that pt insurance likely will not support rehab following hospitalization; inquiring about other options. Still awaiting heme occult. AFVSS, afebrile with WBC 6.0. 07/31: Not much change clinically compared to the previous day. Sodium level is stable at 131, potassium within normal limits at 3.6. Patient still very tremulous, requiring IV Ativan. 07/30: Pt is tremulous/shaking on interview--spoke to nursing about being more aggressive with ativan for withdrawal/CIWA scoring due to prior withdrawal seizures. ST gave mech soft/thin liquid diet--added ensure/boost supplement w/ each meal to improve PO and caloric intake. Pt has an appetite which is a reassuring development. Hyponatremia slow to improve and still requiring increased IVF intake @125mls/hr. Mild hypokalemia 3.4 this morning--added 30meq PO KCl to replete. Pt states she is breathing much easier. Legionella neg but pneumococcal antigen positive; WBC 9.8, afebrile, Blood cx NGTD x1 day. Continue PO Flagyl, Levaquin, prednisone, duonebs for breathing, COPD/ aspiration. Will clinically follow and monitor. 1. Chest Pain - Resolved - likely demand ischemia 2/2 chronic EtOH intake complicated by aspiration/COPD exacerbation and subsequent hypoxia now resolved. ACS w/u negative. -ACS ruled out - BNP wnl, Trops <0.02 x2 - Total CK wnl - TSH wnl - Lipase 123 - UDS positive cannabinoids - Mag wnl - ECHO 07/29: Mild left ventricle dilation (likely 2/2 chronic EtOH intoxication) , low normal EF: 50-55%, normal septal thickness, annular MV calcification w/ trace MV regurg 2. Electrolyte abnormalities: - Hyponatremia - Improved. 134 today * Likely chronically depleted 2/2 EtOH abuse; Urine Osmo 413 wnl and Urine random Na 21 wnl suggestive of hypovolemic hyponatremia from dehydration and chronic EtOH use * Na 119 on admit -> improved to 135 this morning - discontinued IVF 08/01; follow BMP daily * Hypokalemia resolved - UDS positive cannabis - Salicylates, acetaminophen negative, EtOH <3 3.COPD exacerbation vs Aspiration, Antibiotic treatment completed - CXR w/RML infiltrate, pt found down by neighbor after night of drinking - suspect aspiration PNA - Legionella ag negative but pneumococcal ag positive on 07/30 - Discontinue Levaquin 750mg PO daily (07/28-08/05) - Discontinue Flagyl 500mg PO daily (07/29-08/05) - Prednisone 20mg daily; continue taper - Duonebs q4h while awake - Pulmicort nebulizer every 12 hours, albuterol inhaler as needed - IS -CTA 08/03 negative for PE 4. EtOH withdrawal w/hx of withdrawal seizures -Stable - Pt with improved tremors - Discontinued CIWA protocol 08/04 - Nursing order to notify MD if increased agitation; can consider increasing freq or dosing of ativan if required - Thiamine, folate, mv - Zofran 4mg IV q6h - Protonix 40mg PO daily 5. Depression/Anxiety - Fluoxetine 40mg/day - Continue home Busipirone 10mg BID - Hold Hydroxyzine 25mg TID for now - Hold home Trazodone 50mg hs for now 6. HTN - normotensive - Continue home elanapril 10mg BID - Hold HCTZ 12.5mg - Clonidine 0.1 mg PO q6h PRN if SBP >180 and/or DBP >100 7. FEN/GI/PPx Fluids: PO fluids Electrolytes: monitor and replete as necessary Nutrition: Per ST ok with mechanical soft/thin liquid diet with Boost/Ensure supplement at each meal GI: Protonix 40mg PO daily PPx: Heparin 5000 units q8h Tylenol 650mg PO q4h Pain control: Hold home Tramadol 50mg q4h for now Discussed with Dr. Ndiaye Discharge Planning Plan to discharge home with home health on Wednesday08/09/17 (Mikayla Guerrero MD R2) Attending Attestation Patient seen and examined. Case reviewed and discussed. Agree with plan of care as discussed with me and documented in the resident note. (Hellen Ndiaye MD) Problem List: (1) Chest pain at rest ICD Codes: R07.9 - Chest pain, unspecified (2) RML pneumonia ICD Codes: J18.1 - Lobar pneumonia, unspecified organism Status: Acute (3) Alcohol withdrawal ICD Codes: F10.239 - Alcohol dependence with withdrawal, unspecified Status: Acute (4) COPD exacerbation ICD Codes: J44.1 - Chronic obstructive pulmonary disease with (acute) exacerbation Status: Acute (5) Alcohol abuse ICD Codes: F10.10 - Alcohol abuse, uncomplicated Status: Acute (6) Tobacco abuse ICD Codes: Z72.0 - Tobacco abuse Status: Chronic (7) Hypertension ICD Codes: I10 - Hypertension Status: Chronic (8) Depression ICD Codes: F32.9 - Major depressive disorder, single episode, unspecified (9) FEN/GI/PPx (Mikayla Guerrero MD R2) Problem Qualifiers (1) RML pneumonia: Qualified Codes: J18.1 - Lobar pneumonia, unspecified organism (2) Depression: Qualified Codes: F33.1 - Major depressive disorder, recurrent, moderate Mikayla Guerrero MD R2 Aug 07, 2017 10:30 Hellen Ndiaye MD Aug 09, 2017 09:08
[2017-08-07] MEDS ORDERED: OXYGENTANK NAS.CANULA (12:15)
--- NOTE | 2017-08-07 15:06 | HHI.FF ---
Face to Face Verification Diagnosis: (1) Alcohol withdrawal (2) COPD exacerbation (3) Respiratory failure with hypoxia (4) Acute metabolic encephalopathy (5) Hyponatremia (6) RML pneumonia Physical Therapy Order: Evaluate and Treat, Improve ambulation, Strength and gait training Home Health Nursing Order: Medical education Signs/symptoms of disease process Oxygen administration education Medication education-adverse effect Nursing assessment with vital signs I have seen patient Jannie Bauer on 08/07/17. My clinical findings support the need for the requested home health care services because: Ltd mobility - disease progression Patient has SOB Deconditioned w/ increased weakness Med compliance is questionable Limited ability to care for self Need for psychosocial assistance Impaired cognition/judgement High risk of falls I certify that my clinical findings support that this patient is homebound because: Impaired cognitive ability/safety Hx COPD- exertion dyspnea/weakness Unsteady gait/balance Unsafe to leave home unassisted Need for psychosocial assistance Unable to use public transportation Mikayla Guerrero MD R2 Aug 07, 2017 15:06
[2017-08-08] VITALS (7 sets, daily range): BP systolic 107–136; BP diastolic 72–92; PULSE 78–113; RESP 18–22; TEMP 97.5–99; O2SAT 92–99
[2017-08-08] MEDS: HEPARIN SODIUM - SQ 10,000 UNITS/ML VIAL SQ SCH ×3 (06:24→23:27)
[2017-08-08] MEDS: LORazepam 1 MG TAB PO PRN ×3 (06:26→23:22)
[2017-08-08 07:04] LABS: HEMATOCRIT 27.7 % (35.0-46.0); HEMOGLOBIN 9.7 GM/DL (11.6-15.3); MEAN CORPUSCULAR HEMOGLOBIN 36.1 PG (27.0-34.0); MEAN PLATELET VOLUME 6.7 FL (7.0-11.0); PLATELET COUNT 363 TH/MM3 (150-450); RED BLOOD COUNT 2.69 MIL/MM3 (4.00-5.30); RED CELL DISTRIBUTION WIDTH 20.7 % (11.6-17.2); WHITE BLOOD COUNT 5.8 TH/MM3 (4.0-11.0)
[2017-08-08 07:25] LABS: BICARBONATE 33.2 MEQ/L (21.0-32.0); CALCIUM 8.4 MG/DL (8.5-10.1); CREATININE 0.54 MG/DL (0.50-1.00)
[2017-08-08] MEDS: SODIUM CHLORIDE 0.9% FLUSH 10 ML FLUSH IV FLUSH SCH ×2 (09:00→23:28)
[2017-08-08] MEDS: DOCUSATE SODIUM 50 MG/SENNA 8.6 MG TAB PO SCH ×2 (09:00→21:00)
[2017-08-08] MEDS: POLYETHYLENE GLYCOL 17 GM PKG PO SCH (09:00)
[2017-08-08] MEDS: RESP: BUDESONIDE 0.5 MG/2 ML NEB NEB SCH (09:54)
[2017-08-08] MEDS: busPIRone HCL 10 MG TAB PO SCH ×2 (10:58→23:22)
[2017-08-08] MEDS: THIAMINE HCL 100 MG TAB PO SCH (10:58)
[2017-08-08] MEDS: FOLIC ACID 1 MG TAB PO SCH (10:58)
[2017-08-08] MEDS: predniSONE 20 MG TAB PO SCH (10:59)
[2017-08-08] MEDS: ENALAPRIL MALEATE 10 MG TAB PO SCH ×2 (10:59→23:22)
[2017-08-08] MEDS: PANTOPRAZOLE SOD 40 MG DELAYED RELEASE TAB PO SCH (10:59)
[2017-08-08] MEDS: MULTIVITAMINS/MINERALS THERAPEUTIC TAB PO SCH (10:59)
[2017-08-08] MEDS: FLUoxetine HCL 20 MG CAP PO SCH (10:59)
--- NOTE | 2017-08-08 14:04 | HHI.FPPN ---
Subjective Remarks Ms Bauer had no acute events overnight. Her only complaint is that she got up every hour to pee. Pt feels better and is regaining her stamina and is comfortable discharging home tomorrow when Kenneth will be able to oversee her care at home. We discussed PT visits at home to improve strength and the necessity of ceasing chronic alcohol use. Also discussed continuing to take B- vitamins to correct macrocytosis. Denies CP, SOB, N/V/D and DVT pain. (Darin Bryan MD R1) Objective Vitals Vital Signs Date Time Temp Pulse Resp B/P (MAP) Pulse Ox O2 Delivery O2 Flow Rate FiO2 08/08/17 12:00 98.4 82 20 136/87 (103) 96 08/08/17 10:24 92 Nasal Cannula 2.00 08/08/17 08:00 97.5 113 22 107/73 (84) 93 08/08/17 00:00 99.0 93 18 127/92 (104) 99 08/07/17 20:07 99 Nasal Cannula 3.00 08/07/17 20:00 98.8 81 18 121/78 (92) 99 08/07/17 16:00 97.6 96 17 125/81 (96) 87 I/O 08/07/17 08/07/17 08/07/17 08/08/17 08/08/17 08/08/17 07:00 15:00 23:00 07:00 15:00 23:00 Intake Total 480 ml 600 ml 720 ml Balance 480 ml 600 ml 720 ml Intake Oral 480 ml 600 ml 720 ml # Voids 1 5 3 # Bowel Movements 0 2 1 (Darin Bryan MD R1) Result Diagram: 08/08/17 0640 08/08/17 0640 Objective Remarks GENERAL: This is an anatomically male, transgender female lying in bed in [facility]; looks much better and less anxious, smiling, intermittent tremors SKIN: Cool and dry. NECK: Trachea midline. No lymphadenopathy. Supple, nontender, no meningeal signs CARDIOVASCULAR: Regular rate and rhythm without murmur, gallop, or rub RESPIRATORY: Clear to auscultation. Breath sounds equal bilaterally, improved air movement bilaterally; no wheezes, rales or rhonchi GASTROINTESTINAL: Abdomen soft, non-tender, nondistended. No hepato-splenomegaly , or palpable masses. No guarding. MUSCULOSKELETAL: Extremities without clubbing, cyanosis. Mild non-pitting edema of upper and lower extremities. NEUROLOGICAL: Awake and alert. Cranial nerves II through XII intact. Motor and sensory grossly within normal limits. Normal speech Procedures ECHO 2D Doppler 07/30/17 - Dr Palumbo CONCLUSIONS Mildly dilated left ventricle. Wall thickness is normal. The left ventricular systolic function is low normal with an estimated ejection fraction in the range of 50- 55%. Mitral annular calcification is present. Trace mitral valve regurgitation. Medications and IVs Current Medications Medications (Trade) Dose Ordered Sig/Castillo Route Start Time Stop Time Status Last Admin (Symbicort 160-4.5 Mcg Inh) 2 puff Q12HR INH 07/28/17 12:45 Future Hold 08/02/17 22:14 (Buspar) 10 mg BID PO 07/28/17 21:00 08/08/17 10:58 (Spiriva Inh) 18 mcg DAILY INH 07/28/17 14:00 Future Hold 08/01/17 08:49 (Tylenol) 650 mg Q4H PRN PO 07/28/17 13:30 08/02/17 08:55 (Zofran Inj) 4 mg Q6H PRN IVP 07/28/17 13:30 (Heparin Inj) 5,000 units Q8H SQ 07/28/17 15:00 08/08/17 06:24 (Narcan Inj) 0.4 mg UNSCH PRN IV PUSH 07/28/17 13:30 (Beatrice-Colace) 1 tab BID PO 07/28/17 21:00 08/05/17 09:18 (Protonix) 40 mg DAILY PO 07/29/17 09:00 08/08/17 10:59 (Catapres) 0.1 mg Q6H PRN PO 07/28/17 13:30 (NS Flush) 2 ml BID IV FLUSH 07/28/17 21:00 08/08/17 09:00 (NS Flush) 2 ml UNSCH PRN IV FLUSH 07/28/17 15:30 07/30/17 17:26 (Vasotec) 10 mg BID PO 07/28/17 21:00 08/08/17 10:59 (Proair Hfa Inh) 2 puff Q6H PRN INH 07/28/17 18:15 08/02/17 02:41 (Miralax) 17 gm DAILY PO 08/01/17 09:00 08/02/17 08:46 (Pulmicort Respule Neb) 0.25 mg Q12HR NEB NEB 08/03/17 08:45 08/08/17 09:54 (Vitamin B1) 100 mg DAILY PO 08/03/17 12:00 08/08/17 10:58 (PROzac) 40 mg DAILY PO 08/05/17 09:00 08/08/17 10:59 (Ativan) 1 mg Q8H PRN PO 08/04/17 14:30 08/08/17 06:26 (Deltasone) 20 mg DAILY PO 08/05/17 09:00 08/08/17 10:59 (Darin Bryan MD R1) Urinary Catheter: No (Darin Bryan MD R1) Vascular Central Line Catheter: No (Darin Bryan MD R1) A/P Assessment and Plan 56YO transgender anatomically male but identifies as female w/PMHx HTN, COPD, tobacco and EtOH abuse presented with SOB and with CP after being found down by a neighbor after a night of drinking, 2 days of nonbloody, nonbilious emesis/ dry heaves and decreased PO intake for 4 days. Dx: metabolic acidosis due to EtOH intoxication and subsequent dehydration with COPD exacerbation vs aspiration PNA and possible cardiac ischemia. Pt met sepsis criteria on admit with WBC 12.1, tachycardia 122, RR 32, pulse ox 84% RA which has resolved. Pt CTA 08/03 is negative for PE but shows small bilateral pleural effusions w/ bibasilar atelectasis and emphysema. PNA has largely resolved as well as EtOH withdrawal sxs; however, pt is still intermittently tremulous from likely long- term EtOH use 08/08: Pt feels ready to go home tomorrow when home PT and home O2 available, and friend Kenneth able to oversee care. Will do PT today to improve strength prior to DC tomorrow. Will add B-vitamins and folate to discharge due to macrocytic anemia. 08/07: Pt seen working with PT, now Home with home health PT recommended. [facility] at home will provide some free physical therapy visits for patient. Plan for discharge on Wednesday08/09/201708/06: Pt worked with PT, now Home with home health PT recommended. CM working to arrange placement. 08/05: Continues to improve with increased PO intake/appetite. Worked well with PT yesterday, increasing walk distance without desaturation. Encouraged to work with PT today. CM working on potential placement options. Decreased dosing/ frequency ativan 1mg PO q8h for tremors and anxiety. Increased Prozac to 40mg daily. 08/04: Pt s/s for admission have largely resolved except pt still not safe for DC home; is still weak and unable to perform ADLs/IADLs w/o assistance. 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 Will assess for home supplemental O2 with walk test. Pt does have appt later this week with Dr Clifford as outpt. 08/03: Patient still tremulous exam. Still oxygen dependent. Only qualifies for home health care nursing. Does not feel well enough to go home. CIWA scores overnight ranged between 8-15. Still requiring Ativan [id number]. Will perform CTA to rule out PE due to sustained tachycardia and shortness of breath. 08/02: Pt electrolytes wnl w/normal anion gap and resolved metabolic acidosis. Pt is on day 5 of abx. Still has a cough, weakness, and requires assistance. Pt is tremulous when awake, IV ativan has been weaned and working to wean PO. CM reports that pt insurance likely will not support rehab following hospitalization; inquiring about other options. Still awaiting heme occult. AFVSS, afebrile with WBC 6.0. 07/31: Not much change clinically compared to the previous day. Sodium level is stable at 131, potassium within normal limits at 3.6. Patient still very tremulous, requiring IV Ativan. 07/30: Pt is tremulous/shaking on interview--spoke to nursing about being more aggressive with ativan for withdrawal/CIWA scoring due to prior withdrawal seizures. ST gave mech soft/thin liquid diet--added ensure/boost supplement w/ each meal to improve PO and caloric intake. Pt has an appetite which is a reassuring development. Hyponatremia slow to improve and still requiring increased IVF intake @125mls/hr. Mild hypokalemia 3.4 this morning--added 30meq PO KCl to replete. Pt states she is breathing much easier. Legionella neg but pneumococcal antigen positive; WBC 9.8, afebrile, Blood cx NGTD x1 day. Continue PO Flagyl, Levaquin, prednisone, duonebs for breathing, COPD/ aspiration. Will clinically follow and monitor. 1. Chest Pain - Resolved - likely demand ischemia 2/2 chronic EtOH intake complicated by aspiration/COPD exacerbation and subsequent hypoxia now resolved. ACS w/u negative. -ACS ruled out - BNP wnl, Trops <0.02 x2 - Total CK wnl - TSH wnl - Lipase 123 - UDS positive cannabinoids - Mag wnl - ECHO 07/29: Mild left ventricle dilation (likely 2/2 chronic EtOH intoxication) , low normal EF: 50-55%, normal septal thickness, annular MV calcification w/ trace MV regurg 2. Electrolyte abnormalities: - Hyponatremia - Resolving. Stable at 134 today; likely chronic due to EtOH use * Likely chronically depleted 2/2 EtOH abuse; Urine Osmo 413 wnl and Urine random Na 21 wnl suggestive of hypovolemic hyponatremia from dehydration and chronic EtOH use * Na 119 on admit -> improved to 135 this morning - discontinued IVF 08/01; follow BMP daily * Hypokalemia resolved - UDS positive cannabis - Salicylates, acetaminophen negative, EtOH <3 3.COPD exacerbation vs Aspiration, Antibiotic treatment completed - Resolved - CXR w/RML infiltrate, pt found down by neighbor after night of drinking - suspect aspiration PNA - Legionella ag negative but pneumococcal ag positive on 07/30 - Discontinue Levaquin 750mg PO daily (07/28-08/05) - Discontinue Flagyl 500mg PO daily (07/29-08/05) - Prednisone 20mg daily; continue taper - Duonebs q4h while awake - Pulmicort nebulizer every 12 hours, albuterol inhaler as needed - IS -CTA 08/03 negative for PE 4. EtOH withdrawal w/hx of withdrawal seizures -Stable - Pt with improved tremors - Discontinued CIWA protocol 08/04 - Nursing order to notify MD if increased agitation; can consider increasing freq or dosing of ativan if required - Thiamine, folate, mv - Zofran 4mg IV q6h - Protonix 40mg PO daily 5. Depression/Anxiety - Improved with increased Prozac dose - Fluoxetine 40mg/day - Continue home Busipirone 10mg BID - Hold Hydroxyzine 25mg TID for now - plan to DC on discharge (anxiety better controlled with Fluoxetine) - Hold home Trazodone 50mg hs for now - plan to DC on discharge (appears to be sleeping well without now) 6. HTN - normotensive - Continue home elanapril 10mg BID - Hold HCTZ 12.5mg - Clonidine 0.1 mg PO q6h PRN if SBP >180 and/or DBP >100 7. FEN/GI/PPx Fluids: PO fluids Electrolytes: monitor and replete as necessary Nutrition: Per ST ok with mechanical soft/thin liquid diet with Boost/Ensure supplement at each meal GI: Protonix 40mg PO daily PPx: Heparin 5000 units q8h Tylenol 650mg PO q4h Pain control: Hold home Tramadol 50mg q4h for now Seen and discussed with Dr. Ndiaye Discharge Planning Plan to discharge home with home health on Wednesday08/09/17 (Darin Bryan MD R1) Attending Attestation Patient seen and examined with Dr. Bryan. Case reviewed and discussed Agree with plan of care as discussed with me and documented in the resident note. Plan for discharge tomorrow. Discussed with CM and nursing. Patient is comfortable with this plan, much improved today, smiling. (Hellen Ndiaye MD) Problem List: (1) Chest pain at rest ICD Codes: R07.9 - Chest pain, unspecified (2) RML pneumonia ICD Codes: J18.1 - Lobar pneumonia, unspecified organism Status: Acute (3) Alcohol withdrawal ICD Codes: F10.239 - Alcohol dependence with withdrawal, unspecified Status: Acute (4) COPD exacerbation ICD Codes: J44.1 - Chronic obstructive pulmonary disease with (acute) exacerbation Status: Acute (5) Alcohol abuse ICD Codes: F10.10 - Alcohol abuse, uncomplicated Status: Acute (6) Tobacco abuse ICD Codes: Z72.0 - Tobacco abuse Status: Chronic (7) Hypertension ICD Codes: I10 - Hypertension Status: Chronic (8) Depression ICD Codes: F32.9 - Major depressive disorder, single episode, unspecified (9) FEN/GI/PPx (Darin Bryan MD R1) Problem Qualifiers (1) RML pneumonia: Qualified Codes: J18.1 - Lobar pneumonia, unspecified organism (2) Depression: Qualified Codes: F33.1 - Major depressive disorder, recurrent, moderate Darin Bryan MD R1 Aug 08, 2017 14:04 Hellen Ndiaye MD Aug 09, 2017 08:35
[2017-08-08] MEDS ORDERED: FLUO20CA12 PO (14:07)
[2017-08-08] MEDS ORDERED: LORA-474 PO (14:07)
--- NOTE | 2017-08-08 19:03 | HHI.FPPN ---
Addendum to progress note ADDENDUM Reason for addendum: Additonal documentation Additional information Ms Bauer is a 56 yo anatomically male, transgender female seen in the [facility] w/PMHx of HTN, tobacco and alcohol abuse, anxiety and depression and COPD who presented by ambulance after being found down by her friend Kenneth on after alcohol intake the night before. She arrived short of breath (O2 sat of 84% RA) and with CP. She reported squeezing pressure or pain in her lower chest and stomach described it as 10/10 on pain scale. She reported dry heaving and emesis since 07/27 without blood or bile. Pt usually drinks 1/2 gallon vodka every 5 days and has been doing this for years. She reports seizures from alcohol withdrawal with the last one being 2 days before admission. Pt also had not eaten in 4 days before admission and arrived moderately dehydrated with diarrhea. She is disabled, lives in [place] and walks with a walker. On admission was found to have anion gap metabolic acidosis of 17 with hypokalemia (3.3), hyponatremia (121), met sepsis criteria with WBC 12.1, HR 122 , RR 32, and low O2 sat (84% RA). Due to EtOH withdrawal we began CIWA protocol. We initiated ACS r/o for CP. We started NS IVF and trended BMPs q4h. Although the EKG showed T-wave abnormalities and was suggestive of mild ischemia , troponins were negative. ECHO was also low normal with mild cardiomyopathy likely from EtOH. Due to CXR showing RML infiltrate and the pt was found passed out on the floor, we started Clindamycin on 07/28 to cover for possible aspiration PNA. By 07/29, the urine test was positive for pneumococcal antigen and we changed antibiotics to Levaquin and Flagyl to cover for anaerobes. By , anion gap metabolic acidosis resolved, and by 07/30 hypokalemia resolved, but hyponatremia lingered for the duration of her hospitalization, likely from chronic alcoholism. There was concern for possible PE on 08/03, but CTA was negative but did show evidence of emphysema. For the last week to 10 days we have emphasized PT to increase the pt's strength and stamina as well as increased dose of Prozac. The pt's mood has improved and she is less anxious about going home tomorrow. She will get home O2 due to O2 desats intermittently while walking. Also, we are discharging with a small dose of ativan due to chronic alcoholism as we wean the pt from jesus-ergic agents. Darin Bryan MD R1 Aug 08, 2017 19:03
[2017-08-09] VITALS: BP 135/86; PULSE 81; RESP 18; TEMP 98.8; O2SAT 99
[2017-08-09 07:05] LABS: HEMATOCRIT 27.2 % (35.0-46.0); HEMOGLOBIN 9.6 GM/DL (11.6-15.3); MEAN CELL VOLUME 103.1 FL (80.0-100.0); MEAN CORPUSCULAR HEMOGLOBIN 36.2 PG (27.0-34.0); MEAN CORPUSCULAR HGB CONC 35.1 % (32.0-36.0); MEAN PLATELET VOLUME 6.8 FL (7.0-11.0); PLATELET COUNT 369 TH/MM3 (150-450); RED BLOOD COUNT 2.64 MIL/MM3 (4.00-5.30); RED CELL DISTRIBUTION WIDTH 20.6 % (11.6-17.2); WHITE BLOOD COUNT 5.7 TH/MM3 (4.0-11.0)
[2017-08-09 07:26] LABS: BICARBONATE 34.4 MEQ/L (21.0-32.0); CALCIUM 8.3 MG/DL (8.5-10.1); CREATININE 0.47 MG/DL (0.50-1.00)
[2017-08-09] MEDS: LORazepam 1 MG TAB PO PRN (07:27)
[2017-08-09] MEDS: HEPARIN SODIUM - SQ 10,000 UNITS/ML VIAL SQ SCH (07:27)
[2017-08-09 08:00] VITALS: BP 123/83; PULSE 90; RESP 18; TEMP 95.6; O2SAT 97
[2017-08-09] MEDS ORDERED: RESP: BUDESONIDE 0.25 MG/2 ML NEB NEB SCH (08:00)
[2017-08-09] MEDS: POLYETHYLENE GLYCOL 17 GM PKG PO SCH (09:00)
[2017-08-09 09:01] VITALS: O2SAT 98
--- NOTE | 2017-08-09 09:50 | HHI.FF ---
Face to Face Verification Diagnosis: (1) Alcohol abuse (2) Increased anion gap metabolic acidosis (3) COPD exacerbation Physical Therapy Order: Evaluate and Treat, Improve ambulation, Strength and gait training I have seen patient Jannie Bauer on 08/09/17. My clinical findings support the need for the requested home health care services because: Limited ability to care for self I certify that my clinical findings support that this patient is homebound because: Hx COPD- exertion dyspnea/weakness Adela Gilliland MD R1 Aug 09, 2017 09:50
[2017-08-09] MEDS: DOCUSATE SODIUM 50 MG/SENNA 8.6 MG TAB PO SCH (10:00)
[2017-08-09] MEDS: SODIUM CHLORIDE 0.9% FLUSH 10 ML FLUSH IV FLUSH SCH (10:00)
[2017-08-09] MEDS: ENALAPRIL MALEATE 10 MG TAB PO SCH (10:00)
[2017-08-09] MEDS: THIAMINE HCL 100 MG TAB PO SCH (10:00)
[2017-08-09] MEDS: FLUoxetine HCL 20 MG CAP PO SCH (10:01)
[2017-08-09] MEDS: predniSONE 20 MG TAB PO SCH (10:01)
[2017-08-09] MEDS: busPIRone HCL 10 MG TAB PO SCH (10:01)
[2017-08-09] MEDS: PANTOPRAZOLE SOD 40 MG DELAYED RELEASE TAB PO SCH (10:01)
--- NOTE | 2017-08-09 11:44 | HHI.FPPN ---
Subjective Remarks Patient seen and examined this morning by medical team. No acute events overnight per report. Vital signs remained within normal limits while on 2 L nasal cannula. This morning patient states that she is ready to be discharged. Her only complaint this morning is her frequent urination, but otherwise has no complaints. Her home oxygen has been ordered and is in the room for her discharge. She states that her rhinitis on their way. We thoroughly discussed alcohol cessation and continued physical therapy in order to strengthen her cardiac reserve and muscular strength. The patient denies any recent fevers, chills, shortness of breath, chest pain, NVD, abdominal pain, or calf tenderness. (Carlos Davila MD R2) Objective Vitals Vital Signs Date Time Temp Pulse Resp B/P (MAP) Pulse Ox O2 Delivery O2 Flow Rate FiO2 08/09/17 09:01 98 08/09/17 08:00 95.6 90 18 123/83 (96) 97 08/09/17 00:00 98.8 81 18 135/86 (102) 99 08/08/17 22:19 98 Nasal Cannula 2.00 08/08/17 20:00 98.9 83 20 128/91 (103) 97 08/08/17 16:00 98.2 78 20 127/72 (90) 96 08/08/17 12:00 98.4 82 20 136/87 (103) 96 I/O 08/08/17 08/08/17 08/08/17 08/09/17 08/09/17 08/09/17 07:00 15:00 23:00 07:00 15:00 23:00 Intake Total 720 ml 2600 ml 520 ml Balance 720 ml 2600 ml 520 ml Intake Oral 720 ml 2600 ml 520 ml # Voids 3 8 3 # Bowel Movements 1 2 1 (Carlos Davila MD R2) Result Diagram: 08/09/1713 08/09/17 0613 Objective Remarks GENERAL: Anatomically male, transgender female lying in bed in NAD SKIN: Cool and dry. No rash appreciated on abbreviated skin exam. HEENT: Atraumatic, normocephalic with EOMI. MMM. No rhinorrhea. No LAD or JVD appreciated on visual exam. CARDIOVASCULAR: Regular rate and rhythm without murmur, gallop, or rub. 2+ pulses in all 4 extremities. RESPIRATORY: Clear to auscultation. Breath sounds equal bilaterally, improved air movement bilaterally; no wheezes, rales or rhonchi. No increased work of breathing. GASTROINTESTINAL: Abdomen soft, non-tender, nondistended. No hepato-splenomegaly , or palpable masses. No guarding. MUSCULOSKELETAL: Extremities without cyanosis. 2+ edema up to the mid flores focally located in the posterior of the lower extremities and pedal area. Patient ambulating with walker assistance per report. NEUROLOGICAL: Afocal. Awake and alert. Normal speech and judgment. Procedures ECHO 2D Doppler 07/30/17 - Dr Palumbo CONCLUSIONS Mildly dilated left ventricle. Wall thickness is normal. The left ventricular systolic function is low normal with an estimated ejection fraction in the range of 50- 55%. Mitral annular calcification is present. Trace mitral valve regurgitation. (Carlos Davila MD R2) A/P Assessment and Plan 56YO transgender anatomically male but identifies as female w/PMHx HTN, COPD, tobacco and EtOH abuse presented with SOB and with CP after being found down by a neighbor after a night of drinking, 2 days of nonbloody, nonbilious emesis/ dry heaves and decreased PO intake for 4 days. Dx: metabolic acidosis due to EtOH intoxication and subsequent dehydration with COPD exacerbation vs aspiration PNA and possible cardiac ischemia. Pt met sepsis criteria on admit with WBC 12.1, tachycardia 122, RR 32, pulse ox 84% RA which has resolved. Pt CTA 08/03 is negative for PE but shows small bilateral pleural effusions w/ bibasilar atelectasis and emphysema. PNA has largely resolved as well as EtOH withdrawal sxs; however, pt is still intermittently tremulous from likely long- term EtOH use 1. Chest Pain - Resolved - likely demand ischemia 2/2 chronic EtOH intake complicated by aspiration/COPD exacerbation and subsequent hypoxia now resolved. ACS w/u negative. -ACS ruled out - BNP wnl, Trops <0.02 x2 - Total CK wnl - TSH wnl - Lipase 123 - UDS positive cannabinoids - Mag wnl - ECHO 07/29: Mild left ventricle dilation (likely 2/2 chronic EtOH intoxication) , low normal EF: 50-55%, normal septal thickness, annular MV calcification w/ trace MV regurg 2. Electrolyte abnormalities: - Hyponatremia - Resolving. Stable at 134 today; likely chronic due to EtOH use * Likely chronically depleted 2/2 EtOH abuse; Urine Osmo 413 wnl and Urine random Na 21 wnl suggestive of hypovolemic hyponatremia from dehydration and chronic EtOH use * Na 119 on admit -> improved to 135 this morning - discontinued IVF 08/01; follow BMP daily * Hypokalemia resolved - UDS positive cannabis - Salicylates, acetaminophen negative, EtOH <3 3.COPD exacerbation vs Aspiration, Antibiotic treatment completed - Resolved - CXR w/RML infiltrate, pt found down by neighbor after night of drinking - suspect aspiration PNA - Legionella ag negative but pneumococcal ag positive on 07/30 - Discontinue Levaquin 750mg PO daily (07/28-08/05) - Discontinue Flagyl 500mg PO daily (07/29-08/05) - Prednisone 20mg daily; continue taper - Duonebs q4h while awake - Pulmicort nebulizer every 12 hours, albuterol inhaler as needed - IS -CTA 08/03 negative for PE 4. EtOH withdrawal w/hx of withdrawal seizures - Stable - Pt with improved tremors - Discontinued CIWA protocol 08/04 - Nursing order to notify MD if increased agitation; can consider increasing freq or dosing of ativan if required - Thiamine, folate, mv - Zofran 4mg IV q6h - Protonix 40mg PO daily 5. Depression/Anxiety - Improved with increased Prozac dose - Fluoxetine 40mg/day - Continue home Busipirone 10mg BID - Hold Hydroxyzine 25mg TID for now - plan to DC on discharge (anxiety better controlled with Fluoxetine) - Hold home Trazodone 50mg hs for now - plan to DC on discharge (appears to be sleeping well without now) 6. HTN - normotensive - Continue home elanapril 10mg BID - Hold HCTZ 12.5mg - Clonidine 0.1 mg PO q6h PRN if SBP >180 and/or DBP >100 7. FEN/GI/PPx Fluids: PO fluids Electrolytes: monitor and replete as necessary Nutrition: Per ST ok with mechanical soft/thin liquid diet with Boost/Ensure supplement at each meal GI: Protonix 40mg PO daily PPx: Heparin 5000 units q8h Tylenol 650mg PO q4h Pain control: Hold home Tramadol 50mg q4h for now Discharge Planning Plan to discharge home with home health on , Wednesday08/09/17 (Carlos Davila MD R2) Attending Attestation Patient examined and case discussed with resident physicians I have read the above note and agree with the assessment/plan as discussed with me I was involved in all medical decision making for this patient Oscar Regan M.D. (Oscar Regan MD) Problem List: (1) Chest pain at rest ICD Codes: R07.9 - Chest pain, unspecified (2) RML pneumonia ICD Codes: J18.1 - Lobar pneumonia, unspecified organism Status: Acute (3) Alcohol withdrawal ICD Codes: F10.239 - Alcohol dependence with withdrawal, unspecified Status: Acute (4) COPD exacerbation ICD Codes: J44.1 - Chronic obstructive pulmonary disease with (acute) exacerbation Status: Acute (5) Alcohol abuse ICD Codes: F10.10 - Alcohol abuse, uncomplicated Status: Acute (6) Tobacco abuse ICD Codes: Z72.0 - Tobacco abuse Status: Chronic (7) Hypertension ICD Codes: I10 - Hypertension Status: Chronic (8) Depression ICD Codes: F32.9 - Major depressive disorder, single episode, unspecified (9) FEN/GI/PPx (Carlos Davila MD R2) Problem Qualifiers (1) RML pneumonia: Qualified Codes: J18.1 - Lobar pneumonia, unspecified organism (2) Depression: Qualified Codes: F33.1 - Major depressive disorder, recurrent, moderate Carlos Davila MD R2 Aug 09, 2017 11:44 Oscar Regan MD Aug 09, 2017 16:37
[2017-08-09 12:00] VITALS: BP 125/81; PULSE 76; RESP 18; TEMP 97.8; O2SAT 97
== END 2017-08-09 13:42 | disposition home or self-care (01) | DRG 871 ==
LOC: NEPE 07:08 → NEDA 12:11 → OBSVTOIN 12:54 → N07B 16:05
PROVIDERS: ADMIT Family Medicine; ATTEND Family Medicine
DX: A41.9 Sepsis, unspecified organism (principal); J69.0 Pneumonitis due to inhalation of food and vomit; E87.2 Acidosis; I24.8 Other forms of acute ischemic heart disease; J44.1 Chronic obstructive pulmonary disease with (acute) exacerbation; F10.239 Alcohol dependence with withdrawal, unspecified; F33.1 Major depressive disorder, recurrent, moderate; E87.1 Hypo-osmolality and hyponatremia; E46 Unspecified protein-calorie malnutrition; Z68.21 Body mass index [BMI] 21.0-21.9, adult; F41.9 Anxiety disorder, unspecified; I10 Essential (primary) hypertension; F17.210 Nicotine dependence, cigarettes, uncomplicated; F64.9 Gender identity disorder, unspecified; E87.6 Hypokalemia; R09.02 Hypoxemia; Z99.81 Dependence on supplemental oxygen; R82.5 Elevated urine levels of drugs, medicaments and biological substances; D53.9 Nutritional anemia, unspecified; E86.0 Dehydration
CPT/HCPCS: 36600; 71045; 71275; 80048; 80053; 80307; 81001; 82550; 82805; 83036; 83690; 83735; 83880; 83935; 84155; 84300; 84443; 84484; 84588; 85025; 85027; 85610; 85730; 87040; 87449; 87804; 93005; 93306; 93971; 94150; 94618; 94640; 94664; J1644; J1956; J2060; J3411; J3475; J7030; J7040; J7512; J7626; Q9967

== ENCOUNTER 2017-08-12 01:07 | Inpatient (IN) | payer MEDICAID, OTHER ==
[2017-08-12] VITALS (11 sets, daily range): BP systolic 106–142; BP diastolic 66–92; PULSE 75–109; RESP 18–26; TEMP 97.6–98.9; O2SAT 93–100
[~2017-08-12] VITALS: Ht 170.2 cm; Wt 62.3 kg
[~2017-08-12 01:07] MED LIST changes: -CLIN300C5 PO; +FLUO20CA12 PO; -LORA-392 PO; +LORA-474 PO; +NEBULIZER1 MI1; +OXYGENTANK NAS.CANULA; -PROZ20CA11 PO; -TRAM50TA PO; -TRAZ50TA12 PO
--- NOTE | 2017-08-12 01:25 | PD ---
HPI Chief Complaint: shortness of breath Time Seen by Provider: 01:10 Travel History International Travel<30 days: No Contact w/Intl Traveler<30days: No Traveled to known affect area: No History of Present Illness HPI The patient is a 56-year-old female who presents emergency department via EMS for shortness of breath. The patient was recently hospitalized for right middle lobe pneumonia, was discharged home on oxygen. The patient states she was feeling "okay "when she was discharged, however, has steadily declined last 24 hours. She notes increasing shortness of breath as well as chest tightness and lower extremity edema. The patient's symptoms are moderate, worse with lying supine and with exertion. There are no alleviating factors. She denies any new cough, fever, chills, or sweats. She does have a history of COPD and is on oxygen, recently had pneumonia, but denies any known history congestive heart failure per her report. PFSH Past Medical History Arthritis: Yes Asthma: Yes Autoimmune Disease: No Blood Disorders: No Anxiety: Yes Depression: Yes Heart Rhythm Problems: No Cancer: No Cardiovascular Problems: Yes High Cholesterol: No Chemotherapy: No Chest Pain: No Congestive Heart Failure: No COPD: Yes Cerebrovascular Accident: No Diabetes: No Diminished Hearing: No Endocrine: No GERD: No Genitourinary: No Headaches: Yes Hepatitis: No Hiatal Hernia: No Hypertension: Yes Immune Disorder: No Kidney Stones: No Musculoskeletal: Yes (ARTHRITIS, ASEPTIC NECROSIS HIPS) Neurologic: No Psychiatric: Yes (DEPRESSION, ANXIETY) Reproductive: Yes (pt has male genitalia) Respiratory: Yes (COPD) Migraines: No Radiation Therapy: No Renal Failure: No Seizures: Yes (has had lately she claims with no hx of; passes out and then seizures) Sickle Cell Disease: No Sleep Apnea: No Thyroid Disease: No Ulcer: No Menopausal: Yes Past Surgical History Abdominal Surgery: No AICD: No Arteriovenous Shunt: No Body Medical Devices: BREASTS Cardiac Surgery: No Ear Surgery: Yes Endocrine Surgery: No Eye Surgery: No Genitourinary Surgery: No Gynecologic Surgery: Yes Insulin Pump: No Joint Replacement: Yes (LEFT HIP & Right Hip) Oral Surgery: Yes (TONSILLECTOMY) Pacemaker: No Thoracic Surgery: Yes (BILATERAL RADICAL MASTECTOMY/ IMPLANTS) Tonsillectomy: Yes Other Surgery: Yes (SEVERAL RECONSTRUCTIONS OF BREAST) Social History Alcohol Use: Yes (DAILY vodka) Tobacco Use: Yes (couple a day) Substance Use: Yes (once a week) Allergies-Medications (Allergen,Severity, Reaction): Coded Allergies: Fish Containing Products (Unverified Allergy, Severe, swelling, 07/28/17) penicillin G (Unverified Allergy, Severe, RASH, SWELLING,DIFFICULTY BREATHING, 07/28/17) Reported Meds & Prescriptions Reported Meds & Active Scripts Active Ativan (Lorazepam) 1 Mg Tab 1 Mg PO Q8H PRN 7 Days Fluoxetine (Fluoxetine HCl) 20 Mg Capsule 40 Mg PO DAILY Oxygen tank (Oxygen) 1 Ea Tank Liter DARBY.[employer] CONTINUOUS Oxygen Concentrator Portable Gaseous 2 L/min via Nasal Cannula Continuous For 99 months Nebulizer 1 Mis Mis Ea .ROUTE DIRECTED Ventolin Hfa 18 GM Inh (Albuterol Sulfate) 90 Mcg/Act Aer 2 Puff INH Q6H PRN Symbicort Inh (Budesonide/Formoterol Fumarate) 160-4.5 Mcg/Act Aero 2 Puff INH Q12HR Atrovent HFA 12.9 GM Inh (Ipratropium [place]) 17 Mcg/Act Aer 2 Puff INH TID Buspirone (Buspirone HCl) 10 Mg Tab 10 Mg PO BID Enalapril (Enalapril Maleate) 10 Mg Tab 10 Mg PO BID Review of Systems Except as stated in HPI: all other systems reviewed are Neg General / Constitutional: No: Fever Cardiovascular: Positive: Chest Pain or Discomfort, Dyspnea on exertion, No: Tachycardia Respiratory: Positive: Shortness of Breath, Wheezing Gastrointestinal: No: Nausea, Vomiting Musculoskeletal: Positive: Edema Neurologic: No: Dizziness Physical Exam Narrative GENERAL: Awake, alert, pleasant 56-year-old female appears her stated age is in no acute respiratory distress. SKIN: Focused skin assessment warm/dry. Significant hair growth noted over the facial region. HEAD: Atraumatic. Normocephalic. EYES: Pupils equal and round. No scleral icterus. No injection or drainage. ENT: No nasal bleeding or discharge. Mucous membranes pink and moist. NECK: Trachea midline. No JVD. CARDIOVASCULAR: Regular rate and rhythm. No murmur appreciated. Heart rate in the 90s. RESPIRATORY: Mild tachypnea with a respiratory rate of 22. Few scattered rhonchi. Rales noted in the bases bilaterally. GASTROINTESTINAL: Abdomen soft, non-tender, nondistended. MUSCULOSKELETAL: No obvious deformities. No clubbing. No cyanosis. Bilateral lower extremity pitting edema from the knees inferiorly. NEUROLOGICAL: Awake and alert. No obvious cranial nerve deficits. Motor grossly within normal limits. Normal speech. PSYCHIATRIC: Appropriate mood and affect; insight and judgment normal. Data Data Last Documented VS Vital Signs Date Time Temp Pulse Resp B/P (MAP) Pulse Ox O2 Delivery O2 Flow Rate FiO2 08/12/17 01:57 98 Nasal Cannula 3.00 08/12/17 01:51 75 26 106/70 (82) Orders Orders Complete Blood Count With Diff (08/12/17 01:16) Comprehensive Metabolic Panel (08/12/17 01:16) B-Type Natriuretic Peptide (08/12/17 01:16) Act Partial Throm Time (Ptt) (08/12/17 01:16) Prothrombin Time / Inr (Pt) (08/12/17 01:16) Magnesium (Mg) (08/12/17 01:16) Ckmb (Isoenzyme) Profile (08/12/17 01:16) Troponin I (08/12/17 01:16) Influenzae A/B Antigen (08/12/17 01:16) Iv Access Insert/Monitor (08/12/17 01:16) Electrocardiogram (08/12/17 01:16) Ecg Monitoring (08/12/17 01:16) Oximetry (08/12/17 01:16) Oxygen Administration (08/12/17 01:16) Chest, Single Ap (08/12/17 01:16) Sodium Chloride 0.9% Flush (Ns Flush) (08/12/17 01:30) Furosemide Inj (Lasix Inj) (08/12/17 01:30) Albuterol-Ipratropium Neb (Duoneb Neb) (08/12/17 01:30) Alcohol (Ethanol) (08/12/17 01:20) Aspirin Chew (Aspirin Chew) (08/12/17 02:30) Nitroglycerin 2% Oint (Nitroglycerin 2% (08/12/17 02:30) Admit Order (Ed Use Only) (08/12/17 02:33) Labs Laboratory Tests Test 08/12/17 01:20 White Blood Count 4.9 TH/MM3 Red Blood Count 2.77 MIL/MM3 Hemoglobin 10.1 GM/DL Hematocrit 28.9 % Mean Corpuscular Volume 104.4 FL Mean Corpuscular Hemoglobin 36.5 PG Mean Corpuscular Hemoglobin Concent 34.9 % Red Cell Distribution Width 20.2 % Platelet Count 420 TH/MM3 Mean Platelet Volume 6.4 FL Neutrophils (%) (Auto) 39.8 % Lymphocytes (%) (Auto) 43.8 % Monocytes (%) (Auto) 14.7 % Eosinophils (%) (Auto) 0.5 % Basophils (%) (Auto) 1.2 % Neutrophils # (Auto) 2.0 TH/MM3 Lymphocytes # (Auto) 2.2 TH/MM3 Monocytes # (Auto) 0.7 TH/MM3 Eosinophils # (Auto) 0.0 TH/MM3 Basophils # (Auto) 0.1 TH/MM3 CBC Comment DIFF FINAL Differential Comment Prothrombin Time 9.7 SEC Prothromb Time International Ratio 1.0 RATIO Activated Partial Thromboplast Time 22.8 SEC Blood Urea Nitrogen 7 MG/DL Creatinine 0.51 MG/DL Random Glucose 103 MG/DL Total Protein 5.6 GM/DL Albumin 2.7 GM/DL Calcium Level 8.3 MG/DL Magnesium Level 1.6 MG/DL Alkaline Phosphatase 55 U/L Aspartate Amino Transf (AST/SGOT) 21 U/L Alanine Aminotransferase (ALT/SGPT) 33 U/L Total Bilirubin 0.2 MG/DL Sodium Level 139 MEQ/L Potassium Level 3.6 MEQ/L Chloride Level 100 MEQ/L Carbon Dioxide Level 28.5 MEQ/L Anion Gap 11 MEQ/L Estimat Glomerular Filtration Rate 125 ML/MIN Total Creatine Kinase 38 U/L Troponin I 0.07 NG/ML B-Type Natriuretic Peptide 101 PG/ML Ethyl Alcohol Level 294 MG/DL [facility] Medical Decision Making Medical Screen Exam Complete: Yes Emergency Medical Condition: Yes Medical Record Reviewed: Yes Interpretation(s) EKG reveals normal sinus rhythm with a rate in 97. S1Q3. Inverted T waves in lead V2, V3, V4, V5, V6, 1, and aVL. Laboratory Tests Test 08/12/17 01:20 White Blood Count 4.9 TH/MM3 Red Blood Count 2.77 MIL/MM3 Hemoglobin 10.1 GM/DL Hematocrit 28.9 % Mean Corpuscular Volume 104.4 FL Mean Corpuscular Hemoglobin 36.5 PG Mean Corpuscular Hemoglobin Concent 34.9 % Red Cell Distribution Width 20.2 % Platelet Count 420 TH/MM3 Mean Platelet Volume 6.4 FL Neutrophils (%) (Auto) 39.8 % Lymphocytes (%) (Auto) 43.8 % Monocytes (%) (Auto) 14.7 % Eosinophils (%) (Auto) 0.5 % Basophils (%) (Auto) 1.2 % Neutrophils # (Auto) 2.0 TH/MM3 Lymphocytes # (Auto) 2.2 TH/MM3 Monocytes # (Auto) 0.7 TH/MM3 Eosinophils # (Auto) 0.0 TH/MM3 Basophils # (Auto) 0.1 TH/MM3 CBC Comment DIFF FINAL Differential Comment Prothrombin Time 9.7 SEC Prothromb Time International Ratio 1.0 RATIO Activated Partial Thromboplast Time 22.8 SEC Blood Urea Nitrogen 7 MG/DL Creatinine 0.51 MG/DL Random Glucose 103 MG/DL Total Protein 5.6 GM/DL Albumin 2.7 GM/DL Calcium Level 8.3 MG/DL Magnesium Level 1.6 MG/DL Alkaline Phosphatase 55 U/L Aspartate Amino Transf (AST/SGOT) 21 U/L Alanine Aminotransferase (ALT/SGPT) 33 U/L Total Bilirubin 0.2 MG/DL Sodium Level 139 MEQ/L Potassium Level 3.6 MEQ/L Chloride Level 100 MEQ/L Carbon Dioxide Level 28.5 MEQ/L Anion Gap 11 MEQ/L Estimat Glomerular Filtration Rate 125 ML/MIN Total Creatine Kinase 38 U/L Troponin I 0.07 NG/ML B-Type Natriuretic Peptide 101 PG/ML Ethyl Alcohol Level 294 MG/DL Last Impressions Chest X-Ray 08/12/17 0116 Signed Impressions: Service Date/Time: August 01:27 - CONCLUSION: 1. Basilar atelectasis with small effusions. Gerard Palumbo MD Date/Time Source Procedure Growth Status 08/12/17 01:25 Nasal Aspirate Influenza Types A,B Antigen ([facility]) - Final NEGATIVE FOR FLU A AND B ANTIGEN.... Complete Differential Diagnosis Differential diagnosis includes congestive heart failure, pleural effusion, pneumonia, bronchitis, pulmonary embolism, COPD. Narrative Course IV was established, labs are drawn and sent, and the patient was placed on cardiac telemetry monitoring and continuous pulse oximetry monitoring. EKG was ordered and interpreted. Chest x-ray was obtained. The patient was administered DuoNeb and Lasix 40 mg intravenously. Chest x-ray reveals small pleural effusions, otherwise unremarkable. Troponin is positive at 0.07. BNP was elevated at 101, previous admission reveal normal BNP at 27 and normal troponin. The patient did have chest pain and shortness of breath, could be non -ST elevated myocardial infarction versus mild CHF. Patient may benefit from nuclear medicine myocardial perfusion scan and/or echocardiogram. The patient was just discharged to the residence service, therefore, the residents were paged for admission. The patient was administered aspirin and placed on Nitropaste. I reviewed the EMR, the patient had an echocardiogram on previous admission, EF was 50-55%. Patient may just need serial cardiac enzymes and possible evaluation by cardiology for nuclear medicine myocardial perfusion scan. I discussed the patient with the residents who agreed with admission. Physician Communication Physician Communication The residents were paged for admission. I discussed the patient with the residents who agreed with admission. Diagnosis Primary Impression: NSTEMI (non-ST elevated myocardial infarction) Additional Impressions: Alcohol abuse Dyspnea Qualified Codes: R06.00 - Dyspnea, unspecified Admitting Information Admitting Physician Requests: Admit Condition: Stable Román Sharma MD Aug 12, 2017 01:25
[2017-08-12] MEDS ORDERED: RESP: ALBUTEROL 2.5 MG/IPRATROPIUM 0.5 MG NEB (SCH) INH ONE (01:30)
[2017-08-12] MEDS ORDERED: FUROSEMIDE 40 MG/4 ML VIAL IVP ONE (01:30)
[2017-08-12] MEDS ORDERED: SODIUM CHLORIDE 0.9% FLUSH 10 ML FLUSH IVF PRN (01:30)
--- NOTE | 2017-08-12 01:37 | RADRPT ---
EXAM DATE/TIME: 08/12/2017 01:27 [facility] COMPARISON: CHEST SINGLE AP, July 28, 2017, 7:46. INDICATIONS : Shortness of breath. MEDICAL HISTORY : Hypertension. Chronic obstructive pulmonary disease. Asthma SURGICAL HISTORY : None. ENCOUNTER: Initial ACUITY: 1 day PAIN SCORE: 0/10 LOCATION: Bilateral chest FINDINGS: A single view of the chest demonstrates minimal basilar atelectasis. Heart size upper limits normal. Trace pleural fluid. CONCLUSION: 1. Basilar atelectasis with small effusions. Gerard Palumbo MD on August 12, 2017 at 1:33 Board Certified Radiologist. This report was verified electronically.
[2017-08-12 01:42] LABS: BASOPHIL # 0.1 TH/MM3 (0-0.2); BASOPHIL % 1.2 % (0.0-2.0); EOSINOPHIL % 0.5 % (0.0-4.0); HEMATOCRIT 28.9 % (35.0-46.0); HEMOGLOBIN 10.1 GM/DL (11.6-15.3); LYMPH % 43.8 % (9.0-44.0); LYMPHOCYTE # 2.2 TH/MM3 (1.0-4.8); MEAN CELL VOLUME 104.4 FL (80.0-100.0); MEAN CORPUSCULAR HEMOGLOBIN 36.5 PG (27.0-34.0); MEAN CORPUSCULAR HGB CONC 34.9 % (32.0-36.0); MEAN PLATELET VOLUME 6.4 FL (7.0-11.0); MONO % 14.7 % (0.0-8.0); MONOCYTE # 0.7 TH/MM3 (0-0.9); NEUT % 39.8 % (16.0-70.0); PLATELET COUNT 420 TH/MM3 (150-450); RED BLOOD COUNT 2.77 MIL/MM3 (4.00-5.30); RED CELL DISTRIBUTION WIDTH 20.2 % (11.6-17.2); WHITE BLOOD COUNT 4.9 TH/MM3 (4.0-11.0)
[2017-08-12 01:54] LABS: PROTHROMBIN TIME - PATIENT 9.7 SEC (9.8-11.6)
[2017-08-12 02:02] LABS: ALBUMIN 2.7 GM/DL (3.4-5.0); ALKALINE PHOSPHATASE 55 U/L (45-117); ALT (GPT) 33 U/L (10-53); AST (GOT) 21 U/L (15-37); BICARBONATE 28.5 MEQ/L (21.0-32.0); CALCIUM 8.3 MG/DL (8.5-10.1); CHLORIDE 100 MEQ/L (98-107); CREATININE 0.51 MG/DL (0.50-1.00); GLOMERULAR FILTRATION RATE 125 ML/MIN (>89); GLUCOSE,RANDOM 103 MG/DL (74-106); MAGNESIUM 1.6 MG/DL (1.5-2.5); SODIUM (NA) 139 MEQ/L (136-145); TOTAL BILIRUBIN ADULT 0.2 MG/DL (0.2-1.0); TOTAL PROTEIN 5.6 GM/DL (6.4-8.2); TROPONIN I 0.07 NG/ML (0.02-0.05)
[2017-08-12 02:03] LABS: BLOOD UREA NITROGEN 7 MG/DL (7-18)
[2017-08-12] MEDS ORDERED: ASPIRIN 81 MG CHEW TAB CHEW ONE (02:30)
[2017-08-12] MEDS ORDERED: NITROGLYCERIN 2% OINT 1 GM PACKET TOPICAL ONE (02:30)
--- NOTE | 2017-08-12 02:39 | HHI.HP ---
[facility] Service Family Medicine Primary Care Physician Unknown Admission Diagnosis Diagnoses: International Travel<30 Days: No Contact w/Intl Traveler<30days: No Known Affected Area: No History of Present Illness 56-year-old transgender anatomic male who identifies as female with past history of hypertension, COPD, alcohol abuse who is presenting today for chest pain. Patient states she was discharged from the hospital approximately 2 days ago following workup for chest pain which was negative, treatment for COPD exacerbation versus aspiration, and metabolic derangement. She states she is asymptomatic following discharge until today where she notes she's had chest tightness, slight shortness of breath all day. She reports she has not taken any medication to resolve the pain, has been improving throughout the day, it does not radiate into her arm or jaw, no diaphoresis, palpitations, syncope, headache, lightheadedness. She reports cough however she reports that this is improved from her typical baseline, no mucus production, no nausea, vomiting, fever, chills. She further reports that she's had swelling in her arms which has resolved at this time, swelling in her legs, ankles and feet. She states this has happened before, she is unsure if with the previous cause was, it resolved on its own. Denies any new medications. Reports dyspnea on exertion, overall weakness walking around. She'll states that she resume drinking when she went home. She typically has 3 vodka sodas daily, each drink contains approximately 3 shots of alcohol. She reports she is shaky right now. She has had withdrawal symptoms in the past, has had A/V hallucinations. Denies she is currently withdrawing her having A/V hallucinations. No other complaints at this time. (Jian Moya MD R1) Review of Systems Constitutional: COMPLAINS OF: Dizziness (when going from sitting to standing), DENIES: Diaphoretic episodes, Fatigue, Fever, Chills Endocrine: DENIES: Polydipsia, Polyuria Eyes: DENIES: Blurred vision, Diplopia, Eye inflammation, Eye pain, Vision loss , Photosensitivity, Double Vision Ears, nose, mouth, throat: DENIES: Tinnitus, Hearing loss, Throat pain, Hoarseness, Running Nose, Epistaxis, Sinus Pain, Toothache Respiratory: COMPLAINS OF: Cough (Improved from baseline since quitting cigarrettes), Shortness of breath, DENIES: Wheezing, Hemoptysis, Sputum production Cardiovascular: COMPLAINS OF: Chest pain, Palpitations, Dyspnea on Exertion, DENIES: Syncope Gastrointestinal: DENIES: Abdominal pain, Black stools, Bloody stools, Constipation, Diarrhea, Nausea, Vomiting Genitourinary: DENIES: Urgency, Dysuria Musculoskeletal: COMPLAINS OF: Back pain (lower back), DENIES: Joint pain, Muscle aches, Neck pain Integumentary: DENIES: Abnormal pigmentation, Rash Hematologic/lymphatic: DENIES: Bruising, Lymphadenopathy Immunologic/allergic: DENIES: Eczema, Urticaria Neurologic: COMPLAINS OF: Abnormal gait (weak), Headache (occasional), DENIES: Seizures Psychiatric: COMPLAINS OF: Anxiety, Depression, DENIES: Suicidal Ideation, Homicidal Ideation (Jian Moya MD R1) Past Family Social History Past Medical History PFSH obtained via chart review and reviewed with patient alcohol abuse COPD Past Surgical History 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 bilateral hip replacement (Jian Moya MD R1) Allergies: Coded Allergies: Fish Containing Products (Unverified Allergy, Severe, swelling, 07/28/17) penicillin G (Unverified Allergy, Severe, RASH, SWELLING,DIFFICULTY BREATHING, 07/28/17) Family History Mother and Father both healthy; hasn't spoken to them in 40 years Social History Tobacco - approx 3 cigarettes a day for 39 years (has cut down drastically) EtOH - 1/2 gallon vodka every 5 days Drugs - none lives alone but has friends visiting from [place] now (Jian Moya MD R1) Physical Exam Vital Signs Vital Signs Date Time Temp Pulse Resp B/P (MAP) Pulse Ox O2 Delivery O2 Flow Rate FiO2 08/12/17 01:57 98 Nasal Cannula 3.00 08/12/17 01:51 75 26 106/70 (82) 98 08/12/17 01:44 95 Nasal Cannula 3.00 Physical Exam GENERAL: This is a well-nourished, well-developed patient, in no apparent distress. SKIN: No rashes, ecchymoses or lesions. Cool and dry. HEAD: Atraumatic. Normocephalic. No temporal or scalp tenderness. EYES: Pupils equal round and reactive. Extraocular motions intact. No scleral icterus. No injection or drainage. ENT: Nose without bleeding, purulent drainage or septal hematoma. Throat without erythema, tonsillar hypertrophy or exudate. Uvula midline. Airway patent. NECK: Trachea midline. No JVD or lymphadenopathy. Supple, nontender, no meningeal signs. CARDIOVASCULAR: Regular rate and rhythm without murmurs, gallops, or rubs. Chest wall nontender. RESPIRATORY: Some crackles at bilateral bases. No wheeze, rhonchi. GASTROINTESTINAL: Abdomen soft, non-tender, nondistended. No hepato-splenomegaly , or palpable masses. No guarding. MUSCULOSKELETAL: Upper extremities without clubbing, cyanosis, or edema. Lower extremities with bilateral 3+ pitting edema. No joint tenderness, effusion, or edema noted. Bilateral calf tenderness. Negative Homans sign bilaterally. NEUROLOGICAL: Awake and alert. Motor and sensory grossly within normal limits. Five out of 5 muscle strength in all muscle groups. Normal speech. Laboratory Laboratory Tests Test 08/12/17 01:20 White Blood Count 4.9 Red Blood Count 2.77 Hemoglobin 10.1 Hematocrit 28.9 Mean Corpuscular Volume 104.4 Mean Corpuscular Hemoglobin 36.5 Mean Corpuscular Hemoglobin Concent 34.9 Red Cell Distribution Width 20.2 Platelet Count 420 Mean Platelet Volume 6.4 Neutrophils (%) (Auto) 39.8 Lymphocytes (%) (Auto) 43.8 Monocytes (%) (Auto) 14.7 Eosinophils (%) (Auto) 0.5 Basophils (%) (Auto) 1.2 Neutrophils # (Auto) 2.0 Lymphocytes # (Auto) 2.2 Monocytes # (Auto) 0.7 Eosinophils # (Auto) 0.0 Basophils # (Auto) 0.1 CBC Comment DIFF FINAL Differential Comment Prothrombin Time 9.7 Prothromb Time International Ratio 1.0 Activated Partial Thromboplast Time 22.8 Blood Urea Nitrogen 7 Creatinine 0.51 Random Glucose 103 Total Protein 5.6 Albumin 2.7 Calcium Level 8.3 Magnesium Level 1.6 Alkaline Phosphatase 55 Aspartate Amino Transf (AST/SGOT) 21 Alanine Aminotransferase (ALT/SGPT) 33 Total Bilirubin 0.2 Sodium Level 139 Potassium Level 3.6 Chloride Level 100 Carbon Dioxide Level 28.5 Anion Gap 11 Estimat Glomerular Filtration Rate 125 Total Creatine Kinase 38 Troponin I 0.07 B-Type Natriuretic Peptide 101 Ethyl Alcohol Level 294 Date/Time Source Procedure Growth Status 08/12/17 01:25 Nasal Aspirate Influenza Types A,B Antigen ([facility]) - Final NEGATIVE FOR FLU A AND B ANTIGEN.... Complete (Jian Moya MD R1) Result Diagram: 08/12/17 0120 08/12/17 0120 Imaging Last 48 hours Impressions Chest X-Ray 08/12/17 0116 Signed Impressions: Service Date/Time: , August 12, 2017 01:27 - CONCLUSION: 1. Basilar atelectasis with small effusions. Gerard Palumbo MD (Jian Moya MD R1) Mamta VTE Risk Assessment Capbrian VTE Risk Assessment: Mod/High Risk (score >= 2) (Jian Moya MD R1) Assessment and Plan Assessment and Plan 56-year-old transgender anatomical male self identifying female with past history of COPD, hypertension, alcohol abuse who resented for chest tightness. Recently discharged from the hospital 2 days prior to this admission following treatment for possible aspiration pneumonia, COPD exacerbation. Reports new onset bilateral lower extremity edema. (Jian Moya MD R1) Attending Attestation THIS CASE WAS DISCUSSED WITH THE RESIDENT PHYSICIANS. I HAVE REVIEWED THE RECORD AND AGREE WITH THE ABOVE NOTE AND PLAN OF CARE WAS DISCUSSED. I HAVE AUTHORIZED THE ORDER FOR ADMISSION TO AN IN-PATIENT STATUS. (Oscar Regan MD) Problem List: (1) Chest pain ICD Codes: R07.9 - Chest pain, unspecified Plan: Patient with chest tightness, negative ACS workup approximately 1 week ago, troponins less than 0.022 at that time, BNP 27. Troponins 0.07, BNP 101 on admission. New onset lower extremity edema. ECHO 07/29: Mild left ventricle dilation (likely 2/2 chronic EtOH intoxication) , low normal EF: 50-55%, normal septal thickness, annular MV calcification w/ trace MV regurg. -Follow-up troponins -Follow up BNP -Daily aspirin -Consider cardiology consult (2) Lower extremity edema ICD Codes: R60.0 - Localized edema Plan: Patient reports new onset bilateral lower extremity edema. States that she has had lower extremity edema in the past which was self resolved. Presents with tender calves. -Follow up bilateral Doppler (3) COPD (chronic obstructive pulmonary disease) ICD Codes: J44.9 - Chronic obstructive pulmonary disease Status: Chronic Plan: History of COPD, basilar atelectasis with small effusions, recently treated with full course of antibiotics for aspiration pneumonia. On home O2 2 L /m -Albuterol every 4 hours as needed -Spiriva daily -Symbicort twice a day -Incentive spirometer (4) Alcohol abuse ICD Codes: F10.10 - Alcohol abuse, uncomplicated Status: Acute Plan: Chronic EtOH abuse, drinking approximately 9 shots of vodka a day for the past several days. -On [facility] protocol -Folic acid 1 mg by mouth daily -Theragran multivitamins daily -Thiamine 100 mg daily (5) Hypertension ICD Codes: I10 - Hypertension Status: Chronic Plan: History of hypertension -Continue home enalapril 10 mg twice a day (6) Depression ICD Codes: F32.9 - Major depressive disorder, single episode, unspecified Plan: History of depression - Fluoxetine 40mg/day - Continue home Busipirone 10mg BID (7) Tobacco abuse ICD Codes: Z72.0 - Tobacco abuse Status: Chronic Plan: Counseled on smoking cessation (8) FEN/GI/PPx Plan: Fluids: PO fluids Electrolytes: monitor and replete as necessary Nutrition: Per ST ok with mechanical soft/thin liquid diet with Boost/Ensure supplement at each meal GI: Protonix 40mg PO daily PPx: Heparin 5000 units q8h (Jian Moya MD R1) Jian Moya MD R1 Aug 12, 2017 02:39 Oscar Regan MD Aug 12, 2017 10:37
[2017-08-12] MEDS ORDERED: FLUMAZENIL 0.5 MG/5 ML VIAL IV PUSH PRN (03:45)
[2017-08-12] MEDS ORDERED: LORazepam 2 MG TAB PO PRN (03:45)
[2017-08-12] MEDS ORDERED: LORazepam 2 MG/ML VIAL IV PUSH PRN ×4 (03:45)
[2017-08-12] MEDS ORDERED: NALOXONE HCL 0.4 MG/ML AMP IV PUSH PRN (03:45)
[2017-08-12] MEDS ORDERED: SODIUM CHLORIDE 0.9% FLUSH 10 ML FLUSH IV FLUSH PRN (03:45)
[2017-08-12] MEDS ORDERED: ONDANSETRON HCL 4 MG/2 ML VIAL IVP PRN (03:45)
[2017-08-12] MEDS ORDERED: SENNOSIDES 8.6 MG TAB PO PRN (03:45)
[2017-08-12] MEDS ORDERED: LACTULOSE SYRUP 20 GM/30 ML CUP PO PRN (03:45)
[2017-08-12] MEDS ORDERED: BISACODYL 10 MG SUPP RECTAL PRN (03:45)
[2017-08-12] MEDS ORDERED: ACETAMINOPHEN 325 MG TAB PO PRN (03:45)
[2017-08-12] MEDS ORDERED: MAGNESIUM HYDROXIDE SUSP 30 ML CUP PO PRN (03:45)
[2017-08-12] MEDS ORDERED: RESP: ALBUTEROL 2.5 MG/3 ML NEB (PRN) NEB (03:45)
[2017-08-12] MEDS ORDERED: HEPARIN SODIUM - SQ 10,000 UNITS/ML VIAL SQ SCH (05:00)
[2017-08-12] MEDS: FLUoxetine HCL 20 MG CAP PO SCH (07:41)
[2017-08-12] MEDS: SODIUM CHLORIDE 0.9% FLUSH 10 ML FLUSH IV FLUSH SCH ×2 (07:41→21:46)
[2017-08-12] MEDS: MULTIVITAMINS/MINERALS THERAPEUTIC TAB PO SCH (07:41)
[2017-08-12] MEDS: THIAMINE HCL 100 MG TAB PO SCH (07:41)
[2017-08-12] MEDS: PANTOPRAZOLE SOD 40 MG DELAYED RELEASE TAB PO SCH (07:42)
[2017-08-12] MEDS: FOLIC ACID 1 MG TAB PO SCH (07:42)
[2017-08-12] MEDS: DOCUSATE SODIUM 50 MG/SENNA 8.6 MG TAB PO SCH ×2 (07:42→21:00)
[2017-08-12] MEDS: LORazepam 1 MG TAB PO PRN ×3 (07:47→21:52)
--- NOTE | 2017-08-12 08:11 | EKG ---
Date Performed: 08/12/2017 Time Performed: 01:21:43 PTAGE: 56 years EKG: Sinus rhythm BORDERLINE RIGHT AXIS DEVIATION Nonspecific T wave changes ABNORMAL ECG Compared to prior electrocar diogram, Nonspecific T wave changes are now present PREVIOUS TRACING : 07/28/2017 21.16 DOCTOR: Matthew Vázquez Interpretating Date/Time 08/12/2017 08:10:24
[2017-08-12] MEDS ORDERED: ENALAPRIL MALEATE 10 MG TAB PO SCH (09:00)
[2017-08-12] MEDS ORDERED: IPRATROPIUM BROMIDE 17 MCG/ACT 12.9 GM INHALER INH SCH (09:00)
--- NOTE | 2017-08-12 09:36 | RADRPT ---
EXAM DATE/TIME: 08/12/2017 08:37 [facility] COMPARISON: US LEG BILATERAL VENOUS DOPPLER, September 24, 2015, 14:00. INDICATIONS : Bilateral leg swelling and edema. MEDICAL HISTORY : Congestive heart failure. Arthritis. Osteoporosis. Seizures. Palpitations. HTN. COPD. Asthma. Dyspnea . Gait problems. Depression. Anxiety. Tobacco use. SURGICAL HISTORY : Tonsillectomy. Bilateral radical mastectomy/implants. Bilateral hip replacements. ENCOUNTER: Initial ACUITY: 1 day PAIN SCORE: 2/10 LOCATION: Bilateral leg. TECHNIQUE: Venous ultrasound of the left and right leg was performed from the inguinal ligament to the proximal calf. Real-time, color Doppler and spectral tracing, compression and augmentation techniques were us ed. FINDINGS: RIGHT LEG: There is normal compressibility of the deep venous system from the inguinal region to the proximal ca lf. No echogenic clot is seen in the lumen of the common femoral, femoral, popliteal, and posterior tibial veins. There is a normal response of the venous system to proximal and distal augmentation an d respiration. LEFT LEG: There is normal compressibility of the deep venous system from the inguinal region to the proximal ca lf. No echogenic clot is seen in the lumen of the common femoral, femoral, popliteal, and posterior tibial veins. There is a normal response of the venous system to proximal and distal augmentation an d respiration. CONCLUSION: Negative exam with no evidence of deep venous thrombosis. Jian Espinoza MD on August 12, 2017 at 9:32 Board Certified Radiologist. This report was verified electronically.
[2017-08-12] MEDS: busPIRone HCL 10 MG TAB PO SCH ×2 (09:48→21:44)
[2017-08-12] MEDS: BUDESONIDE-FORMOTEROL 160/4.5 MCG INHALER INH SCH ×2 (09:48→21:47)
[2017-08-12] MEDS: TIOTROPIUM BROMIDE 18 MCG INH INH SCH (09:48)
[2017-08-12] MEDS ORDERED: HEPARIN SODIUM - IV 10,000 UNITS/10 ML VIAL IV PUSH ONE (10:00)
[2017-08-12] MEDS ORDERED: HEPARIN-D5W 25,000 U/250 ML 250 ML IV PRN (10:00)
--- NOTE | 2017-08-12 10:36 | HHI.HP ---
[facility] Service Family Medicine Primary Care Physician Unknown Admission Diagnosis Diagnoses: (1) Chest pain (2) Lower extremity edema (3) COPD (chronic obstructive pulmonary disease) (4) Alcohol abuse (5) Hypertension (6) Depression (7) Tobacco abuse (8) FEN/GI/PPx International Travel<30 Days: No Contact w/Intl Traveler<30days: No Known Affected Area: No History of Present Illness 56-year-old transgender female (genetically male but identifies as female) presents to the emergency department with sudden onset chest pressure and shortness of breath yesterday evening. She describes it as a chest tightness that began yesterday evening at approximately 11 pm that was associated with some shortness of breath. She was sitting in a chair and was not active when the chest pains/discomfort started. She states that it was persistent throughout the evening causing her to come to the emergency department. In the emergency department, she was noted to have T-wave inversions on her EKG with an elevated troponin of 0.07. She was recently hospitalized from 07/28 - 08/09 here at [facility] for chest pain and COPD/pneumonia, treated with breathing treatments and antibiotics. During that time she had an ACS evaluation that showed troponins<0.023 and no acute EKG changes (EKG upon arrival with T-wave inversions that are new). This morning, she continues to have the chest tightness that she describes as anterior chest and as a pressure-like sensation , however the shortness of breath has resolved. She endorses lower extremity swelling up to her knees that is new. She endorses shortness of breath. She endorses generalized malaise. She denies pleuritic chest pain or radiation of chest discomfort. She denies diaphoresis. She denies nausea or vomiting. She does have a noted history of alcohol abuse and states that since her discharge 3 days ago, she has been taking approximately 9 shots of vodka a day throughout the day. She has had withdrawal symptoms in the past, has had A/V hallucinations. Denies she is currently withdrawing or having A/V hallucinations. No other complaints at this time. During her hospitalization recently she had a 2-D echocardiogram performed on . Showed a mildly dilated left ventricle with normal wall thickness. Left ventricular systolic function is low normal with an estimated EF of 50-55% . Mitral annular calcification is present. Trace mitral valve regurgitation. Review of Systems Constitutional: COMPLAINS OF: Fatigue, DENIES: Fever, Chills Eyes: DENIES: Blurred vision, Double Vision Ears, nose, mouth, throat: DENIES: Tinnitus, Throat pain Respiratory: COMPLAINS OF: Shortness of breath, DENIES: Cough, Wheezing, Sputum production Cardiovascular: COMPLAINS OF: Chest pain, Dyspnea on Exertion, Lower Extremity Edema, DENIES: Palpitations, Syncope Gastrointestinal: DENIES: Abdominal pain, Constipation, Diarrhea, Nausea, Vomiting Musculoskeletal: DENIES: Joint pain Past Family Social History Past Medical History PFSH obtained via chart review and reviewed with patient alcohol abuse COPD Past Surgical History 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 bilateral hip replacement Allergies: Coded Allergies: Fish Containing Products (Unverified Allergy, Severe, swelling, 07/28/17) penicillin G (Unverified Allergy, Severe, RASH, SWELLING,DIFFICULTY BREATHING, 07/28/17) Family History Mother and Father both healthy; hasn't spoken to them in 40 years Social History Tobacco - approx 3 cigarettes a day for 39 years (has cut down drastically) EtOH - 1/2 gallon vodka every 5 days Drugs - none lives alone but has friends visiting from [place] now Physical Exam Vital Signs Vital Signs Date Time Temp Pulse Resp B/P (MAP) Pulse Ox O2 Delivery O2 Flow Rate FiO2 08/12/17 09:17 98.5 100 20 113/72 (86) 96 08/12/17 04:30 98.1 99 18 115/66 (82) 93 08/12/17 03:55 08/12/17 03:33 75 22 107/68 (81) 100 Nasal Cannula 2.00 08/12/17 01:57 98 Nasal Cannula 3.00 08/12/17 01:51 75 26 106/70 (82) 98 08/12/17 01:44 95 Nasal Cannula 3.00 Physical Exam GENERAL: This is a well-nourished, well-developed patient, in no apparent distress. SKIN: No rashes, ecchymoses or lesions. Cool and dry. HEAD: Atraumatic. Normocephalic. NECK: Trachea midline. No JVD or lymphadenopathy. Supple, nontender, no meningeal signs. CARDIOVASCULAR: Regular rate and rhythm without murmurs, gallops, or rubs. Chest wall nontender. RESPIRATORY: Poor inspiratory effort with decreased breath sounds globally, no obvious crackles or Rales.. GASTROINTESTINAL: Abdomen soft, non-tender, nondistended. No hepato-splenomegaly , or palpable masses. No guarding. MUSCULOSKELETAL: Upper extremities without clubbing, cyanosis, or edema. Lower extremities with bilateral 2+ pitting edema up to the knee joint. Bilateral calf tenderness. Negative Homans sign bilaterally. NEUROLOGICAL: Awake and alert. Motor and sensory grossly within normal limits. Five out of 5 muscle strength in all muscle groups. Normal speech. Laboratory Laboratory Tests Test 08/12/17 01:20 08/12/17 08:35 White Blood Count 4.9 Red Blood Count 2.77 Hemoglobin 10.1 Hematocrit 28.9 Mean Corpuscular Volume 104.4 Mean Corpuscular Hemoglobin 36.5 Mean Corpuscular Hemoglobin Concent 34.9 Red Cell Distribution Width 20.2 Platelet Count 420 Mean Platelet Volume 6.4 Neutrophils (%) (Auto) 39.8 Lymphocytes (%) (Auto) 43.8 Monocytes (%) (Auto) 14.7 Eosinophils (%) (Auto) 0.5 Basophils (%) (Auto) 1.2 Neutrophils # (Auto) 2.0 Lymphocytes # (Auto) 2.2 Monocytes # (Auto) 0.7 Eosinophils # (Auto) 0.0 Basophils # (Auto) 0.1 CBC Comment DIFF FINAL Differential Comment Prothrombin Time 9.7 Prothromb Time International Ratio 1.0 Activated Partial Thromboplast Time 22.8 Blood Urea Nitrogen 7 Creatinine 0.51 Random Glucose 103 Total Protein 5.6 Albumin 2.7 Calcium Level 8.3 Magnesium Level 1.6 Alkaline Phosphatase 55 Aspartate Amino Transf (AST/SGOT) 21 Alanine Aminotransferase (ALT/SGPT) 33 Total Bilirubin 0.2 Sodium Level 139 Potassium Level 3.6 Chloride Level 100 Carbon Dioxide Level 28.5 Anion Gap 11 Estimat Glomerular Filtration Rate 125 Total Creatine Kinase 38 Troponin I 0.07 0.10 B-Type Natriuretic Peptide 101 Ethyl Alcohol Level 294 Date/Time Source Procedure Growth Status 08/12/17 01:25 Nasal Aspirate Influenza Types A,B Antigen ([facility]) - Final NEGATIVE FOR FLU A AND B ANTIGEN.... Complete Result Diagram: 08/12/17 01208/12/17 012 Imaging Last 48 hours Impressions Chest X-Ray 08/12/17 0116 Signed Impressions: Service Date/Time: August 01:27 - CONCLUSION: 1. Basilar atelectasis with small effusions. MD Mamta Spencer VTE Risk Assessment Caprini VTE Risk Assessment: Mod/High Risk (score >= 2) Caprini Risk Assessment Model Point Value = 1 Point Value = 2 Point Value = 3 Point Value = 5 Age 41-60 Minor surgery BMI > 25 kg/m2 Swollen legs Varicose veins or History of unexplained or recurrent spontaneous Oral contraceptives or hormone replacement Sepsis (< 1 month) Serious lung disease, including pneumonia (< 1 month) Abnormal pulmonary function Acute myocardial infarction Congestive heart failure (< 1 month) History of inflammatory bowel disease Medical patient at bed rest Age 61-74 Arthroscopic surgery Major open surgery (> 45 min) Laparoscopic surgery (> 45 min) Malignancy Confined to bed (> 72 hours) Immobilizing plaster cast Central venous access Age >= 75 History of VTE Family history of VTE Factor V Leiden Prothrombin [id number] Lupus anticoagulant Anticardiolipin antibodies Elevated serum homocysteine Heparin-induced thrombocytopenia Other congenital or acquired thrombophilia Stroke (< 1 month) Elective arthroplasty Hip, pelvis, or leg fracture Acute spinal cord injury (< 1 month) Prophylaxis Regimen Total Risk Factor Score Risk Level Prophylaxis Regimen 0-1 Low Early ambulation 2 Moderate Order ONE of the following: *Sequential Compression Device (SCD) *Heparin 5000 units SQ BID 3-4 Higher Order ONE of the following medications: *Heparin 5000 units SQ TID *Enoxaparin/Lovenox 40 mg SQ daily (WT < 150 kg, CrCl > 30 mL/min) *Enoxaparin/Lovenox 30 mg SQ daily (WT < 150 kg, CrCl > 10-29 mL/min) *Enoxaparin/Lovenox 30 mg SQ BID (WT < 150 kg, CrCl > 30 mL/min) AND/OR *Sequential Compression Device (SCD) 5 or more Highest Order ONE of the following medications: *Heparin 5000 units SQ TID (Preferred with Epidurals) *Enoxaparin/Lovenox 40 mg SQ daily (WT < 150 kg, CrCl > 30 mL/min) *Enoxaparin/Lovenox 30 mg SQ daily (WT < 150 kg, CrCl > 10-29 mL/min) *Enoxaparin/Lovenox 30 mg SQ BID (WT < 150 kg, CrCl > 30 mL/min) AND *Sequential Compression Device (SCD) Assessment and Plan Assessment and Plan 56-year-old transgender female (anatomical male self identifying female) presenting to the emergency department with chest discomfort. Problem List: (1) NSTEMI (non-ST elevated myocardial infarction) ICD Codes: I21.4 - Non-ST elevation (NSTEMI) myocardial infarction Status: Acute Plan: EKG with T-wave inversions in leads 1 and V2-V6 associated with elevated troponins 0.07 -> 0.10 Given aspirin 162 mg 1-2 Nitropaste applied to chest Supplemental oxygen provided (patient is on 2 L nasal cannula at home) Morphine as needed for pain Started on metoprolol 12.5 mg by mouth twice a day Continue aspirin by mouth daily Monitor on telemetry Given persistent chest tightness and elevation in troponins associated with EKG changes, heparin drip will be started and cardiology consult placed to evaluate for medical management versus intervention such as cardiac catheterization as patient does not have a oracle applications analyst as an outpatient and has poor follow-up - Patient made nothing by mouth pending cardiology evaluation - Continue to trend serial troponins and EKGs ECHO 07/29: Mild left ventricle dilation (likely 2/2 chronic EtOH intoxication), low normal EF: 50-55%, normal septal thickness, annular MV calcification w/ trace MV regurg. BNP 101 (2) Lower extremity edema ICD Codes: R60.0 - Localized edema Plan: Patient reports new onset bilateral lower extremity edema. States that she has had lower extremity edema in the past which was self resolved. Presents with tender calves. - Follow up bilateral Doppler - Consider diuresis (3) COPD (chronic obstructive pulmonary disease) ICD Codes: J44.9 - Chronic obstructive pulmonary disease Status: Chronic Plan: History of COPD, basilar atelectasis with small effusions, recently treated with full course of antibiotics for aspiration pneumonia. On home O2 2 L /m -Albuterol every 4 hours as needed -Spiriva daily -Symbicort twice a day -Incentive spirometer (4) Alcohol abuse ICD Codes: F10.10 - Alcohol abuse, uncomplicated Status: Acute Plan: Chronic EtOH abuse, drinking approximately 9 shots of vodka a day for the past several days. -On [facility] protocol -Folic acid 1 mg by mouth daily -Theragran multivitamins daily -Thiamine 100 mg daily (5) Hypertension ICD Codes: I10 - Hypertension Status: Chronic Plan: History of hypertension -Continue home enalapril 10 mg twice a day (6) Depression ICD Codes: F32.9 - Major depressive disorder, single episode, unspecified Plan: History of depression - Fluoxetine 40mg/day - Continue home Busipirone 10mg BID (7) Tobacco abuse ICD Codes: Z72.0 - Tobacco abuse Status: Chronic Plan: Counseled on smoking cessation (8) FEN/GI/PPx Plan: Fluids: PO fluids Electrolytes: monitor and replete as necessary Nutrition: Per ST ok with mechanical soft/thin liquid diet with Boost/Ensure supplement at each meal GI: Protonix 40mg PO daily PPx: Heparin 5000 units q8h Physician Certification 2 Midnight Certification Type: Admission for Inpatient Services Order for Inpatient Services The services are ordered in accordance with Medicare regulations or non- Medicare payer requirements, as applicable. In the case of services not specified as inpatient-only, they are appropriately provided as inpatient services in accordance with the 2-midnight benchmark. Estimated LOS (days): 2 2 days is the estimated time the patient will need to remain in the hospital, assuming treatment plan goals are met and no additional complications. Post-Hospital Plan: Not yet determined Oscar Regan MD Aug 12, 2017 10:36
[2017-08-12 11:05] LABS: HEMATOCRIT 30.4 % (35.0-46.0); HEMOGLOBIN 10.4 GM/DL (11.6-15.3); MEAN CELL VOLUME 104.2 FL (80.0-100.0); MEAN CORPUSCULAR HEMOGLOBIN 35.5 PG (27.0-34.0); MEAN CORPUSCULAR HGB CONC 34.1 % (32.0-36.0); MEAN PLATELET VOLUME 6.5 FL (7.0-11.0); PLATELET COUNT 518 TH/MM3 (150-450); RED BLOOD COUNT 2.92 MIL/MM3 (4.00-5.30); RED CELL DISTRIBUTION WIDTH 19.9 % (11.6-17.2); WHITE BLOOD COUNT 2.7 TH/MM3 (4.0-11.0)
[2017-08-12 11:15] LABS: PROTHROMBIN TIME - PATIENT 10.2 SEC (9.8-11.6)
[2017-08-12] MEDS: METOPROLOL TARTRATE 25 MG TAB PO SCH ×2 (11:35→21:45)
[2017-08-12 15:02] LABS: CHOLESTEROL/ HDL RATIO 2.7 RATIO; HDL CHOLESTEROL 77.9 MG/DL (40.0-60.0); TROPONIN I 0.09 NG/ML (0.02-0.05)
[2017-08-12] MEDS ORDERED: HEPARIN SODIUM - IV 10,000 UNITS/10 ML VIAL IV PUSH PRN ×2 (16:00)
--- NOTE | 2017-08-12 22:15 | MB ---
cc: OMA CUNNINGHAM MD DATE OF CONSULTATION 08/12/17 INDICATION Chest pain. HISTORY OF PRESENT ILLNESS A 56-year-old transgender female who presents with chest pain and shortness of breath. She states yesterday around 11 o'clock she developed chest pain with progressive symptoms of shortness of breath which persisted basically all day. She came into the emergency department, had an initial troponin of 0.07 which went up to as high as 0.10. The patient is currently chest pain free. She also notes that she has had lower extremity edema. She has history of alcohol abuse and was actually just discharged three days ago, reports drinking nine shots of vodka a day. She has also had history of withdrawal symptoms with hallucinations. Her echocardiogram was relatively unremarkable. Electrocardiogram shows T-wave inversions in the anterolateral precordial leads. PAST MEDICAL HISTORY 1. Alcohol abuse, 2. COPD. ALLERGIES PENICILLIN FAMILY HISTORY Denies any family history of early coronary disease or sudden cardiac . SOCIAL HISTORY Smokes, drinks half a gallon of vodka every few days. Denies any drug use. REVIEW OF SYSTEMS 12-point review of systems was performed negative unless otherwise noted in history of present illness. PHYSICAL EXAMINATION VITAL SIGNS: Temperature is normal, pulse 75, blood pressure 106/70 mmHg. GENERAL: Alert and oriented times three in no acute distress. HEENT: Pupils reactive to light and accommodation, extraocular movements are intact. No elevation in jugular venous distension. No thyromegaly or lymphadenopathy. No carotid bruits. LUNGS: Clear to auscultation bilaterally. CARDIOVASCULAR: Regular rate and rhythm without murmurs, rubs or gallops. ABDOMEN: Nontender, nondistended. Good bowel sounds. No hepatosplenomegaly EXTREMITIES: No clubbing, cyanosis or edema. Good peripheral pulses. Cranial nerves intact. Motor sensory grossly intact. LABORATORY DATA WBC 4.9, hemoglobin 10.1, platelet count 420, creatinine 0.51, sodium 139, potassium 3.6. ASSESSMENT 1. Elevated troponin/chest pain. 2. COPD 3. Alcohol abuse. PLAN The patient has chest pain symptoms with intermediate level troponin. She also has some T-wave inversion on electrocardiogram all of which may be consistent with underlying obstructive coronary disease. I am not sure she is a great candidate for potentially invasive strategy given her history of alcohol abuse. Also in addition the fact that she had rather persistent symptoms for a prolonged period of time without any significant elevation in troponin is somewhat reassuring. At this point, let us proceed with a stress test to get an idea of ischemic burden. If she has moderate ischemia or more, then we are going to need to proceed with cardiac catheterization. If the ischemia is less than moderate then we can consider optimizing medical regimen with long-acting nitrate. We will make her n.p.o. after midnight. addendum: after further consideration and discussion with patient, will proceed with [facility] given symptoms and EKG changes and high likelihood of obstructive CAD MD URPAL Rodriguez/ /6:24 PM /9:41 PM MTDD
[2017-08-13 03:40] VITALS: PULSE 84
[2017-08-13 03:55] VITALS: BP 136/86; PULSE 85; RESP 18; TEMP 98.3; O2SAT 93
[2017-08-13 05:08] LABS: AUTOMATED NEUTROPHIL # 5.4 TH/MM3 (1.8-7.7); BASOPHIL % 0.2 % (0.0-2.0); HEMATOCRIT 27.7 % (35.0-46.0); HEMOGLOBIN 9.6 GM/DL (11.6-15.3); LYMPH % 12.7 % (9.0-44.0); LYMPHOCYTE # 0.9 TH/MM3 (1.0-4.8); MEAN CELL VOLUME 105.1 FL (80.0-100.0); MEAN CORPUSCULAR HEMOGLOBIN 36.2 PG (27.0-34.0); MEAN CORPUSCULAR HGB CONC 34.5 % (32.0-36.0); MEAN PLATELET VOLUME 6.8 FL (7.0-11.0); MONOCYTE # 0.7 TH/MM3 (0-0.9); NEUT % 77.1 % (16.0-70.0); PLATELET COUNT 452 TH/MM3 (150-450); RED BLOOD COUNT 2.64 MIL/MM3 (4.00-5.30); WHITE BLOOD COUNT 6.9 TH/MM3 (4.0-11.0)
[2017-08-13 05:40] LABS: BICARBONATE 32.9 MEQ/L (21.0-32.0); CALCIUM 8.6 MG/DL (8.5-10.1); CREATININE 0.54 MG/DL (0.50-1.00); MAGNESIUM 1.6 MG/DL (1.5-2.5)
[2017-08-13] MEDS ORDERED: POTASSIUM CHLORIDE 10 MEQ CONTROLLED RELEASE TAB PO ONE (07:45)
[2017-08-13 08:00] VITALS: BP 130/63; PULSE 74; RESP 18; TEMP 97.8; O2SAT 96
--- NOTE | 2017-08-13 08:19 | PD.CARD.PN ---
Subjective Subjective Remarks no chest pain overnight. breathing comfortably on nasal O2. review of tele shows no events. (Komal Jimenez) Objective Medications Current Medications Medications (Trade) Dose Ordered Sig/Castillo Route Start Time Stop Time Status Last Admin (NS Flush) 2 ml UNSCH PRN IV FLUSH 08/12/17 03:45 (NS Flush) 2 ml BID IV FLUSH 08/12/17 09:00 08/12/17 21:46 (Tylenol) 650 mg Q4H PRN PO 08/12/17 03:45 (Zofran Inj) 4 mg Q6H PRN IVP 08/12/17 03:45 (Narcan Inj) 0.4 mg UNSCH PRN IV PUSH 08/12/17 03:45 (Beatrice-Colace) 1 tab BID PO 08/12/17 09:00 (Milk Of Magnesia Liq) 30 ml Q12H PRN PO 08/12/17 03:45 (Senokot) 17.2 mg Q12H PRN PO 08/12/17 03:45 (Dulcolax Supp) 10 mg DAILY PRN RECTAL 08/12/17 03:45 (Lactulose Liq) 30 ml DAILY PRN PO 08/12/17 03:45 (Romazicon Inj) 0.2 mg Q1M PRN IV PUSH 08/12/17 03:45 (Ativan) 1 mg Q4H PRN PO 08/12/17 03:45 08/12/17 21:52 (Ativan Inj) 1 mg Q4H PRN IV PUSH 08/12/17 03:45 (Ativan) 2 mg Q2H PRN PO 08/12/17 03:45 (Ativan Inj) 2 mg Q2H PRN IV PUSH 08/12/17 03:45 (Ativan Inj) 2 mg Q1H PRN IV PUSH 08/12/17 03:45 (Ativan Inj) 2 mg Q15M PRN IV PUSH 08/12/17 03:45 (Symbicort 160-4.5 Mcg Inh) 2 puff Q12HR INH 08/12/17 09:00 08/12/17 21:47 (Buspar) 10 mg BID PO 08/12/17 09:00 08/12/17 21:44 (Vasotec) 10 mg BID PO 08/12/17 09:00 Future Hold (PROzac) 40 mg DAILY PO 08/12/17 09:00 08/12/17 07:41 (Albuterol Neb) 2.5 mg Q4HR NEB PRN NEB 08/12/17 03:45 (Aspirin) 325 mg DAILY PO 08/13/17 09:00 (Spiriva Inh) 18 mcg DAILY INH 08/12/17 09:00 08/12/17 09:48 (Protonix) 40 mg DAILY PO 08/12/17 09:00 08/12/17 07:42 (Folate) 1 mg DAILY PO 08/12/17 09:00 08/17/17 08:59 08/12/17 07:42 (Vitamin B1) 100 mg DAILY PO 08/12/17 09:00 08/12/17 07:41 (Theragran M Tab) 1 tab DAILY PO 08/12/17 09:00 08/17/17 08:59 08/12/17 07:41 (Lopressor) 12.5 mg BID PO 08/12/17 10:00 08/12/17 21:45 (Heparin Inj) 5,000 units UNSCH PRN IV PUSH 08/12/17 16:00 (Heparin Inj) 2,500 units UNSCH PRN IV PUSH 08/12/17 16:00 Heparin Sodium/ Dextrose 250 ml @ 7.2 mls/hr TITRATE PRN IV 08/12/17 10:00 08/12/17 11:33 Vital Signs / I&O Vital Signs Date Time Temp Pulse Resp B/P (MAP) Pulse Ox O2 Delivery O2 Flow Rate FiO2 08/13/17 03:55 98.3 85 18 136/86 (103) 93 08/13/17 03:40 84 08/13/17 00:00 Nasal Cannula 2.50 08/12/17 23:48 85 08/12/17 23:35 97.6 89 18 115/67 (83) 94 08/12/17 20:43 98.9 84 18 140/78 (98) 97 08/12/17 20:00 Nasal Cannula 2.50 08/12/17 17:00 98.1 79 18 142/92 (109) 98 08/12/17 16:10 96 Nasal Cannula 3.00 08/12/17 11:54 98.8 109 19 115/70 (85) 96 08/12/17 09:17 98.5 100 20 113/72 (86) 96 I/O 08/12/17 08/12/17 08/12/17 08/13/17 08/13/17 08/13/17 07:00 15:00 23:00 07:00 15:00 23:00 Intake Total 480 ml Output Total 650 ml Balance -170 ml Intake Oral 480 ml Output Urine Total 650 ml # Bowel Movements 1 Physical Exam . EYES: Pupils equal and round. ENT: No nasal bleeding or discharge. NECK: Trachea midline. No JVD. CARDIOVASCULAR: Regular rate and rhythm. no murmurs RESPIRATORY: No accessory muscle use. Clear to auscultation. Breath sounds equal bilaterally. GASTROINTESTINAL: Abdomen soft, non-tender, nondistended. MUSCULOSKELETAL: Extremities without clubbing, cyanosis, or edema. No obvious deformities. NEUROLOGICAL: Awake and alert. resting tremor to bilateral upper arms. Normal speech. PSYCHIATRIC: Appropriate mood and affect; insight and judgment normal. Laboratory Laboratory Tests Test 08/12/17 08:35 08/12/17 10:45 08/12/17 14:16 08/12/17 19:18 Troponin I 0.10 NG/ML 0.09 NG/ML White Blood Count 2.7 TH/MM3 Red Blood Count 2.92 MIL/MM3 Hemoglobin 10.4 GM/DL Hematocrit 30.4 % Mean Corpuscular Volume 104.2 FL Mean Corpuscular Hemoglobin 35.5 PG Mean Corpuscular Hemoglobin Concent 34.1 % Red Cell Distribution Width 19.9 % Platelet Count 518 TH/MM3 Mean Platelet Volume 6.5 FL Prothrombin Time 10.2 SEC Prothromb Time International Ratio 1.0 RATIO Activated Partial Thromboplast Time 24.1 SEC 54.4 SEC Triglycerides Level 79 MG/DL Cholesterol Level 211 MG/DL LDL Cholesterol 117 MG/DL HDL Cholesterol 77.9 MG/DL Cholesterol/HDL Ratio 2.70 RATIO Test 08/13/17 01:25 08/13/17 03:40 Activated Partial Thromboplast Time 44.6 SEC White Blood Count 6.9 TH/MM3 Red Blood Count 2.64 MIL/MM3 Hemoglobin 9.6 GM/DL Hematocrit 27.7 % Mean Corpuscular Volume 105.1 FL Mean Corpuscular Hemoglobin 36.2 PG Mean Corpuscular Hemoglobin Concent 34.5 % Red Cell Distribution Width 20.0 % Platelet Count 452 TH/MM3 Mean Platelet Volume 6.8 FL Neutrophils (%) (Auto) 77.1 % Lymphocytes (%) (Auto) 12.7 % Monocytes (%) (Auto) 10.0 % Eosinophils (%) (Auto) 0.0 % Basophils (%) (Auto) 0.2 % Neutrophils # (Auto) 5.4 TH/MM3 Lymphocytes # (Auto) 0.9 TH/MM3 Monocytes # (Auto) 0.7 TH/MM3 Eosinophils # (Auto) 0.0 TH/MM3 Basophils # (Auto) 0.0 TH/MM3 CBC Comment DIFF FINAL Differential Comment Blood Urea Nitrogen 16 MG/DL Creatinine 0.54 MG/DL Random Glucose 126 MG/DL Calcium Level 8.6 MG/DL Magnesium Level 1.6 MG/DL Sodium Level 139 MEQ/L Potassium Level 3.4 MEQ/L Chloride Level 98 MEQ/L Carbon Dioxide Level 32.9 MEQ/L Anion Gap 8 MEQ/L Estimat Glomerular Filtration Rate 117 ML/MIN Imaging Last 48 hours Impressions Chest X-Ray 08/12/17 0116 Signed Impressions: Service Date/Time: August 01:27 - CONCLUSION: 1. Basilar atelectasis with small effusions. Gerard Palumbo MD Lower Extremity Ultrasound 08/12/17 0000 Signed Impressions: Service Date/Time: August 08:37 - CONCLUSION: Negative exam with no evidence of deep venous thrombosis. Jian Espinoza MD (Kmoal Jimenez) Assessment and Plan Problem List: (1) NSTEMI (non-ST elevated myocardial infarction) ICD Codes: I21.4 - Non-ST elevation (NSTEMI) myocardial infarction Status: Acute (2) Chest pain ICD Codes: R07.9 - Chest pain, unspecified Assessment and Plan 56 yo transgender F with COPD, recent etoh abuse, tobacco user, and HTN presented yesterday with progressive chest pain and SOB. EKG showed extensive T wave inversion with elevated troponin as high as 0.10. NSTEMI- currently chest pain free. based on suggestive symptoms and new T wave changes we will plan for LHC later today. keep npo. (Komal Jimenez) Assessment and Plan LHC - no obstructive dz DC home FU PCP (Kalyan Tello MD) Komal Jimenez Aug 13, 2017 08:19 Kalyan Tello MD Aug 13, 2017 11:54
[2017-08-13] MEDS: BUDESONIDE-FORMOTEROL 160/4.5 MCG INHALER INH SCH (08:40)
[2017-08-13] MEDS: TIOTROPIUM BROMIDE 18 MCG INH INH SCH (08:40)
[2017-08-13] MEDS: PANTOPRAZOLE SOD 40 MG DELAYED RELEASE TAB PO SCH (08:41)
[2017-08-13] MEDS: FOLIC ACID 1 MG TAB PO SCH (08:41)
[2017-08-13] MEDS: THIAMINE HCL 100 MG TAB PO SCH (08:41)
[2017-08-13] MEDS: busPIRone HCL 10 MG TAB PO SCH (08:41)
[2017-08-13] MEDS: METOPROLOL TARTRATE 25 MG TAB PO SCH (08:41)
[2017-08-13] MEDS: MULTIVITAMINS/MINERALS THERAPEUTIC TAB PO SCH (08:42)
[2017-08-13] MEDS: FLUoxetine HCL 20 MG CAP PO SCH (08:42)
[2017-08-13] MEDS: DOCUSATE SODIUM 50 MG/SENNA 8.6 MG TAB PO SCH (08:42)
[2017-08-13] MEDS: SODIUM CHLORIDE 0.9% FLUSH 10 ML FLUSH IV FLUSH SCH (08:44)
--- NOTE | 2017-08-13 08:49 | HHI.FPPN ---
Subjective Remarks No acute events overnight. Pt lying in bed, NPO for cardiac cath this AM. Currently on 2L NC. Afebrile. Vitals wnl. Pt complains of chest tightness / , unchanged since admission. Endorses b/l leg swelling. Denies abdominal pain and N/V. (Adela Gilliland MD R1) Objective Vitals Vital Signs Date Time Temp Pulse Resp B/P (MAP) Pulse Ox O2 Delivery O2 Flow Rate FiO2 08/13/17 03:55 98.3 85 18 136/86 (103) 93 08/13/17 03:40 84 08/13/17 00:00 Nasal Cannula 2.50 08/12/17 23:48 85 08/12/17 23:35 97.6 89 18 115/67 (83) 94 08/12/17 20:43 98.9 84 18 140/78 (98) 97 08/12/17 20:00 Nasal Cannula 2.50 08/12/17 17:00 98.1 79 18 142/92 (109) 98 08/12/17 16:10 96 Nasal Cannula 3.00 08/12/17 11:54 98.8 109 19 115/70 (85) 96 08/12/17 09:17 98.5 100 20 113/72 (86) 96 I/O 08/12/17 08/12/17 08/12/17 08/13/17 08/13/17 08/13/17 07:00 15:00 23:00 07:00 15:00 23:00 Intake Total 480 ml Output Total 650 ml Balance -170 ml Intake Oral 480 ml Output Urine Total 650 ml # Bowel Movements 1 (Adela Gilliland MD R1) Result Diagram: 08/13/17 0340 08/13/17 0340 Objective Remarks GENERAL: This is a well-nourished, well-developed patient, in no apparent distress. on 2L NC. SKIN: No rashes, ecchymoses or lesions. Cool and dry. HEAD: Atraumatic. Normocephalic. NECK: Trachea midline. No JVD or lymphadenopathy. Supple, nontender, no meningeal signs. CARDIOVASCULAR: Regular rate and rhythm without murmurs, gallops, or rubs. Chest wall nontender. RESPIRATORY: CTAB, no wheezes or crackles GASTROINTESTINAL: Abdomen soft, non-tender, nondistended. No hepato-splenomegaly , or palpable masses. No guarding. MUSCULOSKELETAL: Upper extremities without clubbing, cyanosis, or edema. Lower extremities with bilateral 2+ pitting edema up to the knee joint. Bilateral calf tenderness. Negative Homans sign bilaterally. NEUROLOGICAL: Awake and alert. Motor and sensory grossly within normal limits. Five out of 5 muscle strength in all muscle groups. Normal speech. (Adela Gilliland MD R1) A/P Assessment and Plan 56-year-old transgender female (anatomical male self identifying female) w/ COPD on home oxygen, alcohol abuse, and HTN admitted for NSTEMI. Discharge Planning Pending cardiac cath this AM Will need PT at rehab upon discharge (Adela Gilliland MD R1) Attending Attestation Patient examined and case discussed with resident physicians I have read the above note and agree with the assessment/plan as discussed with me I was involved in all medical decision making for this patient Oscar Regan MD (Oscar Regan MD) Problem List: (1) NSTEMI (non-ST elevated myocardial infarction) ICD Codes: I21.4 - Non-ST elevation (NSTEMI) myocardial infarction Status: Acute Plan: Cardiology consulted, appreciated recs -NPO -Currently on heparin drip -Cardiac cath this AM -Continue aspirin 325mg PO daily and metoprolol tartrate 12.5 PO BID -Will need to add statin at discharge Previous work up: EKG with T-wave inversions in leads 1 and V2-V6 associated with elevated troponins 0.07 -> 0.10--> 0.09 ECHO 07/29: Mild left ventricle dilation (likely 2/2 chronic EtOH intoxication), low normal EF: 50-55%, normal septal thickness, annular MV calcification w/ trace MV regurg. BNP 101 (2) Lower extremity edema ICD Codes: R60.0 - Localized edema Plan: Patient reports new onset bilateral lower extremity edema. States that she has had lower extremity edema in the past which was self resolved. Presents with tender calves. - Lower extremity U/S negative for DVTs - Consider diuresis if needed (3) COPD (chronic obstructive pulmonary disease) ICD Codes: J44.9 - Chronic obstructive pulmonary disease Status: Chronic Plan: History of COPD, basilar atelectasis with small effusions, recently treated with full course of antibiotics for aspiration pneumonia. On home O2 2 L /m -Albuterol every 4 hours as needed -Spiriva daily -Symbicort twice a day -Incentive spirometer (4) Alcohol abuse ICD Codes: F10.10 - Alcohol abuse, uncomplicated Status: Acute Plan: Chronic EtOH abuse, drinking approximately 9 shots of vodka a day for the past several days. -On CIAZ protocol -Folic acid 1 mg by mouth daily -Theragran multivitamins daily -Thiamine 100 mg daily (5) Macrocytic anemia ICD Codes: D53.9 - Nutritional anemia, unspecified Plan: See plan above, continue with vitamins. (6) Hypertension ICD Codes: I10 - Hypertension Status: Chronic Plan: History of hypertension -Held home enalapril 10 mg BID -Continue Metoprolol 12.5mg PO BID (7) Depression ICD Codes: F32.9 - Major depressive disorder, single episode, unspecified Plan: History of depression - Continue Fluoxetine 40mg/day - Continue home Buspirone 10mg BID (8) Tobacco abuse ICD Codes: Z72.0 - Tobacco abuse Status: Chronic Plan: Counseled on smoking cessation (9) FEN/GI/PPx Plan: Fluids: PO fluids Electrolytes: monitor and replete as necessary Nutrition: NPO GIppx: Protonix 40mg PO daily (Adela Gilliland MD R1) Adela Gilliland MD R1 Aug 13, 2017 08:49 Oscar Regan MD Aug 13, 2017 10:05
[2017-08-13] MEDS ORDERED: ASPIRIN 325 MG TAB PO SCH (09:00)
[2017-08-13] MEDS: LORazepam 1 MG TAB PO PRN (09:03)
[2017-08-13] MEDS ORDERED: MIDAZOLAM HCL 2 MG/2 ML VIAL ONE ×2 (10:29→10:54)
[2017-08-13] MEDS ORDERED: HEPARIN-NS/PF INJ 1,000 ML ONE (10:29)
[2017-08-13] MEDS ORDERED: HEPARIN SODIUM - IV 10,000 UNITS/10 ML VIAL ONE (10:30)
[2017-08-13] MEDS ORDERED: NITROGLYCERIN INJ 5 ML ONE (10:30)
[2017-08-13] MEDS ORDERED: HYDROCORTISONE SOD SUCCINATE 100 MG VIAL ONE (10:46)
--- NOTE | 2017-08-13 11:13 | CATHPROC ---
Attention Sciences HIS Report Study Information Study Number Admission Scheduled Start Study Start [id number] Aug 12 2017 9:58AM 08/13/2017 Aug 13 2017 10:27AM [place] [facility] Cardiac Catheterization Admit Source Facility Department Emergency department [facility] - [facility] Physician and Clinical Staff Initial Kalyan Magaña [employer] Grinderlinda Thomason RN, Leonardo [employer] Coffee GrinderKailey Rich BSN Other cathlab, cathlab Recorder Geovanni Gramajo RCIS(BS) ScrRony Loomis RT(R) Procedures Performed Procedure Location (Site) Vessel Name Coronary Angiograms LCA Left Coronary Coronary Angiograms RCA Right Coronary Coronary Angiograms Radial (right) Radial Art. L Heart Cath Wire insertion Radial (right) Radial Art. Equipment Time Butter Melter Description Size Mfg Part Number Used/Scraped TRANSDUCER, TRUWAVE [id number] 10:27 DAVI [employer] LOUIE * Used W/STOCKCOCK *[id number] WIRE, CHOICE PT EX. SUPPORT [id number] 10:57 [employer] 180CM Used 182CM *[id number] [id number] *[id number] [id number] *[id number] [id number] *[id number] 10:27 Deltasight PACK, CCL CUSTOM * Used *[id number] 10:27 Deltasight SUPPORT, ARTERIAL ADULT 69547 *[id number] Used [id number] 10:27 Vertro PACER PEN, SKIN DUAL W/ RULER * Used *[id number] BAND, RADIAL COMPRESSION TR [id number] 11:06 Sleep Number MEDICAL 24CM Used SHORT 24 *[id number] SHEATH, FR6 RADIAL PRELUDE 10:27 SafetyPay FR 6 [id number] Used EASE 11CM [id number] 10:27 Sleep Number MEDICAL WIRE, EXCHANGE 260CM 3MMJ 260CM Used *[id number] 11:02 Sleep Number MEDICAL WIRE, EXCHANGE 260CM 3MMJ 260CM Used *[id number] 10:58 NAMIC TUBING, HIGH PRESSURE 20" 20" Used *[id number] 10:27 NYCOMED OMNIPAQUE, 350 MG, 150ML 150ML [id number] Used [id number] 10:27 [employer],WARM AIR CCL * Used *[id number] Equipment Model, Serial, Lot Number and Expiration Data Description Model Number Serial Number Lot Number Expiration Date WIRE, CHOICE PT EX. SUPPORT [id number] 03-08-2019 182CM WIRE, EXCHANGE 260CM 3MMJ [id number] 06-10-2020 History: Current Medications Medication Dosage/Unit Route Frequency Last Date/Time Taken Beta Joon ASA History: Risk Factors Family History of Hypertension Dyslipidemia Previous ND Previous Heart Failure Premature CAD Yes Yes No No No Prior Valve Prior PCI Prior CABG Surgery No No No Cerebrovascular Peripheral Artery Chronic Lung On Dialysis Diabetes Disease Disease Disease No No No Yes No History: Symptoms/Diagnosis Selection Items Chest pain History: Stress Tests Stress or Imaging Studies Performed No History: Other Current Smoker Method Quit Packs a Day Years Used Pack Years Yes Cigarettes 1 Years Ago 1 40 40 Labs Hgb (g/dl) Hct (%) WBC (l/cumm) Platelets (thousands) 11.60-17.00 35.00-51.00 4.00-11.00 150.00-450.00 9.6 27.7 6.9 452 Glucose (mg/dl) BUN (mg/dl) Creatinine (mg/dl) BUN:Creatinine (1:x) 74.00-106.00 7.00-18.00 0.50-1.30 10.00-20.00 126 16 0.5 32 Na (meq/l) K (meq/l) 136.00-145.00 3.50-5.10 139 3.4 INR (PTT:PT) 0.90-1.10 1 CPK-MB (ng/ML) 0.50-3.60 Not Drawn Medication Medication Total Dose (Bolus/Oral) Medication Total Dosage/Unit 1% XYLOCAINE 3 mL FENTANYL 75 mcg HEPARIN 5000 units NTG (IC) 200 mcg SOLU-CORTEF 100 mg VERSED 2 mg Medications (Bolus/Oral) Medication Time Given Dosage/Unit Administered By Reason SOLU-CORTEF 08/13/2017 10:48:36 AM 100 mg Kailey Woo 100 mg SOLU-CORTEF given in lab by Kailey Woo BSN in Right Antecubital via Peripheral IV. O rdered by Kalyan Tello. VERSED 08/13/2017 10:48:50 AM 2 mg Jian Wooanda 2 mg VERSED given in lab by Kailey Woo BSN in Right Antecubital via Peripheral IV. Ordered by Kalyan Tello. FENTANYL 08/13/2017 10:49:02 AM 50 mcg Kailey Woo 50 mcg FENTANYL given in lab by Kailey Woo BSN in Right Antecubital via Peripheral IV. Orde red by Kalyan Tello. 1% XYLOCAINE 08/13/2017 10:50:28 AM 3 mL Kalyan Tello 3 mL 1% XYLOCAINE given in lab by Kalyan Tello in Right Radial via Subcutaneous. NTG (IC) 08/13/2017 10:52:41 AM 200 mcg Kalyan Tello 200 mcg NTG (IC) given in lab by Kalyan Tello in Right Radial via Intra-arterial. FENTANYL 08/13/2017 10:55:37 AM 25 mcg Kailey Woo 25 mcg FENTANYL given in lab by Kailey Woo BSN in Right Antecubital via Peripheral IV. Orde red by Kalyan Tello. HEPARIN 08/13/2017 10:59:29 AM 5000 units Kailey Woo 5000 units HEPARIN given in lab by Kailey Woo BSN in Right Antecubital via Peripheral IV. O rdered by Kalyan Tello. Medication (Drip) Medication Time Given Dosage/Unit Concentration/Unit Diluent (ml) Solution IV Solutions 08/13/2017 10:26:53 AM 0 mL (IV) 500 NaCl .9 Patient arrived on IV Solutions in Right Antecubital via Peripheral IV. Pump/Drip Flow = 20 ml/hr usi ng NaCl .9. Ordered by Kalyan Tello. Initial Case Assessment Cardiovascular HR Rhythm NIBP Chest Pain 68 nsr 133/94 0 Edema Present Skin color Skin None Normal Warm Dry Circulatory - Right Pulses Dorsalis Pedis Femoral Radial 2 2 2 Scale (0,1,2,3,4,d) Scale (0,1,2,3,4,d) Neurological State Oriented to time-place- Alert Moves all extremities person Respiration - General Respiration Rate SpO2 (%) (B/min) 15 99 Final Case Assessment Cardiovascular HR Rhythm NIBP Chest Pain 75 nsr 133/94 0 Edema Present Skin color Skin None Normal Warm Dry Circulatory - Right Pulses Dorsalis Pedis Femoral Radial 2 2 2 Scale (0,1,2,3,4,d) Scale (0,1,2,3,4,d) Neurological State Oriented to time-place- Alert Moves all extremities person Respiration - General Respiration Rate SpO2 (%) (B/min) 15 99 Chronological Log Time Study Chronological Log 10:20:36 Patient arrived via Bed. 10:20:39 Patient Name, D.O.B, / Armband Verified By R.N. 10:20:41 Consent signed by the physician and the patient and verified by the [facility] [employer] staff. 10:26:44 Pre-op and post- op instructions given; patient acknowledges understanding of instructions. 10:26:45 Verbal Stimulation=2 Physical Stimulation=2 Airway=2 Respiration=2 TOTAL=8. (0=absent, 1=li mited, 2=present) 10:26:45 Presedation assessment performed by [employer] Superintendent RN. 10:26:49 Allens test performed on the right radial and ulnar artery. 10:26:50 Immediate Presedation assesment performed by physician. 10:26:50 Patient has been NPO for More than 6Hrs. 10:26:51 Skin Breakdown- none per patient 10:26:51 Patient Warmer Placed on the Table. 10:26:52 Edwina Prominences Protected 10:26:53 A # 20 IV was noted in the Antecubital (right). Grade = 0 Patient arrived on IV Solutions in Right Antecubital via Peripheral IV. Pump/Drip Flow = 20 ml/ hr using NaCl .9. Ordered 10:26:53 by Kalyan Tello. 10:26:54 History and physical on the chart or being dictated. Vitals capture started with the following parameters, Patient=Adult, Interval=5 min, Initial Pr ntmbgt=323 mmHg, 10:30:20 Deflation Rate=5 mmHg, Cuff placed on Right Arm 10:31:14 HR=69 bpm, RYYK=635/94 mmhg, SpO2=98.0 %, Resp=16 B/min, Pain=0, Asya=10, Culver=2 10:31:57 Right Radial and groin(s) prepped with 2% chlorhexidine, and draped after a 3 min. waiting time. Assessment: Initial Case, HR=68 BPM, Rhythm=nsr, RFHE=323/94 mmhg, Chest Pain=0, Edema=None, Co sherron=Normal, Skin = Warm, Dry 10:32:40 Right Pulses: Sundar Ped=2, Femoral=2, Radial=2 Neurological: State=Alert, Ox3, RODRIGUEZ Respiration: Resp=15 B/min, SpO2=99 % 10:32:41 Reference ECG taken 10:35:52 HR=68 bpm, AMWL=319/89 mmhg, SpO2=99.0 %, Resp=15 B/min, Pain=0, Asya=10, Culver=2 10:40:20 MD paged 10:40:53 HR=67 bpm, PKYD=779/84 mmhg, SpO2=99.0 %, Resp=19 B/min, Pain=0, Asya=10, Culver=2 10:42:20 Pressure channel 1 zeroed. 10:42:46 MD responded 10:45:07 MD arrived. 10:45:09 Contrast Scanned 10:45:10 Immediate Presedation assesment performed by physician. 10:45:54 HR=70 bpm, IBGK=768/89 mmhg, SpO2=99.0 %, Resp=19 B/min, Pain=0, Asya=10, Culver=2 100 mg SOLU-CORTEF given in lab by Kailey Woo BSN in Right Antecubital via Peripheral IV. Ordered by 10:48:36 Kalyan Tello. 2 mg VERSED given in lab by Kailey Woo BSN in Right Antecubital via Peripheral IV. Or dered by Omer, 10:48:50 Kalyan. 50 mcg FENTANYL given in lab by Kailey Woo BSN in Right Antecubital via Peripheral IV . Ordered by Omer, 10:49:02 Kalyan. Time Out. Correct patient, correct procedure, correct physician, power injector not loaded with contrast with surgical 10:50:13 team present. Time Out Concurred by and individual staff in procedure. 10:50:20 Case Start 10:50:21 Verbal Stimulation=2 Physical Stimulation=2 Airway=2 Respiration=2 TOTAL=8. (0=absent, 1=li mited, 2=present) 10:50:28 3 mL 1% XYLOCAINE given in lab by Kalyan Tello in Right Radial via Subcutaneous. 10:50:58 HR=69 bpm, XDOU=128/83 mmhg, SpO2=96.0 %, Resp=12 B/min, Pain=0, Asya=10, Culver=2 10:52:18 Access site was Right Radial Artery. A SHEATH, FR6 RADIAL PRELUDE EASE 11CM FR 6 was advanced into the Radial (right) using the Perc utaneous 10:52:28 technique. 10:52:41 200 mcg NTG (IC) given in lab by Kalyan Tello in Right Radial via Intra-arterial. 10:52:58 In the Radial (right) the SHEATH, FR6 RADIAL PRELUDE EASE 11CM FR [address] by Kalyan Tello. A JR 5.0 INFINITI CATHETER FR 5 was advanced over a wire. OMNIPAQUE, 350 MG, 150ML 150ML was us ed for 10:53:08 injections. 10:55:14 The Radial (right) was injected and visualized at various angles. OMNIPAQUE, 350 MG, 150ML 150ML used. 25 mcg FENTANYL given in lab by Kailey Woo BSN in Right Antecubital via Peripheral IV . Ordered by Omer 10:55:37 Kalyan. 10:55:57 HR=65 bpm, DLYO=379/77 mmhg, SpO2=95.0 %, Resp=17 B/min, Pain=0, Asya=10, Culver=2 10:56:26 The Radial (right) was injected and visualized at various angles. OMNIPAQUE, 350 MG, 150ML 150ML used. 10:57:44 A WIRE, CHOICE PT EX. SUPPORT 182CM 180CM was inserted via Radial (right). 5000 units HEPARIN given in lab by Kailey Woo BSN in Right Antecubital via Peripheral IV. Ordered by 10:59:29 Kalyan Tello. Recorded Pressure: Ao, HR=68, Condition=Condition 1 11:00:13 (Aorta) Ao 124/64/88 11:00:53 The RCA was injected and visualized at various angles. OMNIPAQUE, 350 MG, 150ML 150ML used . 11:00:54 HR=68 bpm, DUVU=098/78 mmhg, SpO2=97.0 %, Resp=12 B/min, Pain=0, Asya=10, Culver=2 After removing the current catheter a JL 3.5 INFINITI CATHETER FR 5 was advanced over a WIRE, E XCHANGE 260CM 11:02:27 3MMJ 260CM. 11:03:51 The LCA was injected and visualized at various angles. OMNIPAQUE, 350 MG, 150ML 150ML used . 11:05:19 Catheter was removed 11:05:21 Case End Assessment: Final Case, HR=75 BPM, Rhythm=nsr, FWEC=740/94 mmhg, Chest Pain=0, Edema=None, [place] r=Normal, Skin = Warm, Dry 11:05:27 Right Pulses: Sundar Ped=2, Femoral=2, Radial=2 Neurological: State=Alert, Ox3, RODRIGUEZ Respiration: Resp=15 B/min, SpO2=99 % 11:05:39 Catheter(s) removed without difficulty Radial Compression Device Used. 11 mLs of air placed in BAND, RADIAL COMPRESSION TR SHORT 24 24 CM. Affected 11:05:40 hand 96 % O2 saturation. 11:05:46 Sterile dressing applied to site 11:05:47 No case complications noted. 11:05:47 Cine recording checked. 11:05:48 Bedside Report will be given. 11:05:51 Contrast Scanned 11:05:53 Verbal Stimulation=2 Physical Stimulation=2 Airway=2 Respiration=2 TOTAL=8. (0=absent, 1=li mited, 2=present) 11:05:55 HR=75 bpm, WVVM=928/75 mmhg, SpO2=96.0 %, Resp=16 B/min, Pain=0, Asya=10, Culver=2 11:06:09 A Left Heart Cath was performed. 11:10:56 HR=76 bpm, SRPP=894/81 mmhg, SpO2=96.0 %, Resp=14 B/min, Pain=0, Asya=10, Culver=2 11:13:02 Vitals capture stopped. 11:13:04 Patient moved to [facility] End Study - Contrast Media Used In Study Contrast Total Opened (mL) Total Used (mL) Total Wasted (mL) Omnipaque 50 50 0 End Study - Maximum Contrast Load Max Contrast Load (mL) 623.2 End Study - Radiation Exposure Fluoro Time (minutes) 3.1 End Study - Patient Disposition Complications Transferred To Interventional Outcome No [employer] Holding No attempt made
[2017-08-13] MEDS ORDERED: IOHEXOL 350 MG/ML 50 ML BTL (for Cath Lab) OTHER ONE (11:23)
--- NOTE | 2017-08-13 11:39 | MA ---
cc: [facility] [place] DATE: 08/13/2017 INDICATION Unstable angina PROCEDURE PERFORMED 1. Fluoroscopy with interpretation. 2. Coronary angiography. The risks, benefits and alternatives discussed with the patient. The patient understood and consented to the procedure. PROCEDURE The patient brought catheterization lab. The patient placed on the catheterization table. Right wrist was prepped and draped in sterile fashion. The right wrist was anesthetized with 2% lidocaine. Right radial artery was cannulated and a 6-Tuval[place] 7 cm sheath was placed out difficulty. CORONARY ANGIOGRAPHY: 1. Left main coronary angiographically normal. 2. Left anterior descending coronary angiographically normal. 3. Left circumflex coronary gives rise to obtuse marginal branch angiographically normal. 4. Right coronary artery is dominant vessel. There is a posterior descending artery. Right coronary artery angiographically normal. CONCLUSION Angiographically normal coronary arteries. PLAN The patient does not have obstructive coronary disease and may be a component Prinzmetal angina consideration of long-acting nitrate maybe can possibility. She could be discharged and follow up with her primary care doctor. MD RUPAL Rodriguez/abdoulaye /11:10 AM /11:16 AM
[2017-08-13] MEDS ORDERED: MISC INFORMATION XX ONE (12:00)
[2017-08-13] MEDS ORDERED: WALKER WHEELS/F1 MIS (13:04)
[2017-08-13] MEDS ORDERED: COMMODE 3-IN-11 MIS (13:04)
[2017-08-13] MEDS ORDERED: METO25TA3 PO (13:11)
[2017-08-13] MEDS ORDERED: ASA325 PO (13:11)
[2017-08-13] MEDS ORDERED: ATOR40TA16 PO (13:11)
--- NOTE | 2017-08-13 13:11 | HHI.DCPOC ---
Discharge Care Plan Diagnosis: (1) COPD (chronic obstructive pulmonary disease) (2) NSTEMI (non-ST elevated myocardial infarction) (3) Hypertension Goals to Promote Your Health * To prevent worsening of your condition and complications * To maintain your health at the optimal level Directions to Meet Your Goals Take your medications as prescribed Follow your dietary instruction Follow activity as directed Keep your appointments as scheduled Take your immunizations and boosters as scheduled If your symptoms worsen call your PCP, if no PCP go to Urgent Care Center or Emergency Room Smoking is Dangerous to Your Health. Avoid second hand smoke Call the 24-hour hour crisis hotline for domestic abuse at Adela Gilliland MD R1 Aug 13, 2017 13:11
--- NOTE | 2017-08-13 13:12 | HHI.DS ---
Discharge Summary Admission Date Aug 12, 2017 at 09:58 Admitting Diagnosis (1) NSTEMI (non-ST elevated myocardial infarction) Plan: Cardiology consulted, appreciated recs -NPO -Currently on heparin drip -Cardiac cath this AM -Continue aspirin 325mg PO daily and metoprolol tartrate 12.5 PO BID -Will need to add statin at discharge Previous work up: EKG with T-wave inversions in leads 1 and V2-V6 associated with elevated troponins 0.07 -> 0.10--> 0.09 ECHO 07/29: Mild left ventricle dilation (likely 2/2 chronic EtOH intoxication), low normal EF: 50-55%, normal septal thickness, annular MV calcification w/ trace MV regurg. BNP 101 ICD Codes: I21.4 - Non-ST elevation (NSTEMI) myocardial infarction Status: Acute (2) Lower extremity edema Plan: Patient reports new onset bilateral lower extremity edema. States that she has had lower extremity edema in the past which was self resolved. Presents with tender calves. - Lower extremity U/S negative for DVTs - Consider diuresis if needed ICD Codes: R60.0 - Localized edema (3) COPD (chronic obstructive pulmonary disease) Plan: History of COPD, basilar atelectasis with small effusions, recently treated with full course of antibiotics for aspiration pneumonia. On home O2 2 L /m -Albuterol every 4 hours as needed -Spiriva daily -Symbicort twice a day -Incentive spirometer ICD Codes: J44.9 - Chronic obstructive pulmonary disease Status: Chronic (4) Alcohol abuse Plan: Chronic EtOH abuse, drinking approximately 9 shots of vodka a day for the past several days. -On [facility] protocol -Folic acid 1 mg by mouth daily -Theragran multivitamins daily -Thiamine 100 mg daily ICD Codes: F10.10 - Alcohol abuse, uncomplicated Status: Acute (5) Macrocytic anemia Plan: See plan above, continue with vitamins. ICD Codes: D53.9 - Nutritional anemia, unspecified (6) Hypertension Plan: History of hypertension -Held home enalapril 10 mg BID -Continue Metoprolol 12.5mg PO BID ICD Codes: I10 - Hypertension Status: Chronic (7) Depression Plan: History of depression - Continue Fluoxetine 40mg/day - Continue home Buspirone 10mg BID ICD Codes: F32.9 - Major depressive disorder, single episode, unspecified (8) Tobacco abuse Plan: Counseled on smoking cessation ICD Codes: Z72.0 - Tobacco abuse Status: Chronic (9) FEN/GI/PPx Plan: Fluids: PO fluids Electrolytes: monitor and replete as necessary Nutrition: NPO GIppx: Protonix 40mg PO daily Brief History 56-year-old transgender female (genetically male but identifies as female) presents to the emergency department with sudden onset chest pressure and shortness of breath yesterday evening. She describes it as a chest tightness that began yesterday evening at approximately 11 pm that was associated with some shortness of breath. She was sitting in a chair and was not active when the chest pains/discomfort started. She states that it was persistent throughout the evening causing her to come to the emergency department. In the emergency department, she was noted to have T-wave inversions on her EKG with an elevated troponin of 0.07. She was recently hospitalized from 07/28 - 08/09 here at [facility] for chest pain and COPD/pneumonia, treated with breathing treatments and antibiotics. During that time she had an ACS evaluation that showed troponins<0.023 and no acute EKG changes (EKG upon arrival with T-wave inversions that are new). This morning, she continues to have the chest tightness that she describes as anterior chest and as a pressure-like sensation , however the shortness of breath has resolved. She endorses lower extremity swelling up to her knees that is new. She endorses shortness of breath. She endorses generalized malaise. She denies pleuritic chest pain or radiation of chest discomfort. She denies diaphoresis. She denies nausea or vomiting. She does have a noted history of alcohol abuse and states that since her discharge 3 days ago, she has been taking approximately 9 shots of vodka a day throughout the day. She has had withdrawal symptoms in the past, has had A/V hallucinations. Denies she is currently withdrawing or having A/V hallucinations. No other complaints at this time. During her hospitalization recently she had a 2-D echocardiogram performed on . Showed a mildly dilated left ventricle with normal wall thickness. Left ventricular systolic function is low normal with an estimated EF of 50-55% . Mitral annular calcification is present. Trace mitral valve regurgitation. CBC/BMP: 08/13/17 0340 08/13/17 0340 Significant Findings Laboratory Tests Test 08/12/17 01:20 08/12/17 08:35 08/12/17 10:45 08/12/17 14:16 Red Blood Count 2.77 MIL/MM3 (4.00-5.30) 2.92 MIL/MM3 (4.00-5.30) Hemoglobin 10.1 GM/DL (11.6-15.3) 10.4 GM/DL (11.6-15.3) Hematocrit 28.9 % (35.0-46.0) 30.4 % (35.0-46.0) Mean Corpuscular Volume 104.4 FL (80.0-100.0) 104.2 FL (80.0-100.0) Mean Corpuscular Hemoglobin 36.5 PG (27.0-34.0) 35.5 PG (27.0-34.0) Red Cell Distribution Width 20.2 % (11.6-17.2) 19.9 % (11.6-17.2) Mean Platelet Volume 6.4 FL (7.0-11.0) 6.5 FL (7.0-11.0) Monocytes (%) (Auto) 14.7 % (0.0-8.0) Prothrombin Time 9.7 SEC (9.8-11.6) Activated Partial Thromboplast Time 22.8 SEC (24.3-30.1) 24.1 SEC (24.3-30.1) Total Protein 5.6 GM/DL (6.4-8.2) Albumin 2.7 GM/DL (3.4-5.0) Calcium Level 8.3 MG/DL (8.5-10.1) Troponin I 0.07 NG/ML (0.02-0.05) 0.10 NG/ML (0.02-0.05) 0.09 NG/ML (0.02-0.05) B-Type Natriuretic Peptide 101 PG/ML (0-100) Ethyl Alcohol Level 294 MG/DL (0-5) White Blood Count 2.7 TH/MM3 (4.0-11.0) Platelet Count 518 TH/MM3 (150-450) Cholesterol Level 211 MG/DL (120-200) LDL Cholesterol 117 MG/DL (0-99) HDL Cholesterol 77.9 MG/DL (40.0-60.0) Test 08/12/17 19:18 08/13/17 01:25 08/13/17 03:40 Activated Partial Thromboplast Time 54.4 SEC (24.3-30.1) 44.6 SEC (24.3-30.1) Red Blood Count 2.64 MIL/MM3 (4.00-5.30) Hemoglobin 9.6 GM/DL (11.6-15.3) Hematocrit 27.7 % (35.0-46.0) Mean Corpuscular Volume 105.1 FL (80.0-100.0) Mean Corpuscular Hemoglobin 36.2 PG (27.0-34.0) Red Cell Distribution Width 20.0 % (11.6-17.2) Platelet Count 452 TH/MM3 (150-450) Mean Platelet Volume 6.8 FL (7.0-11.0) Neutrophils (%) (Auto) 77.1 % (16.0-70.0) Monocytes (%) (Auto) 10.0 % (0.0-8.0) Lymphocytes # (Auto) 0.9 TH/MM3 (1.0-4.8) Random Glucose 126 MG/DL (74-106) Potassium Level 3.4 MEQ/L (3.5-5.1) Carbon Dioxide Level 32.9 MEQ/L (21.0-32.0) PE at Discharge GENERAL: This is a well-nourished, well-developed patient, in no apparent distress. on 2L NC. SKIN: No rashes, ecchymoses or lesions. Cool and dry. HEAD: Atraumatic. Normocephalic. NECK: Trachea midline. No JVD or lymphadenopathy. Supple, nontender, no meningeal signs. CARDIOVASCULAR: Regular rate and rhythm without murmurs, gallops, or rubs. Chest wall nontender. RESPIRATORY: CTAB, no wheezes or crackles GASTROINTESTINAL: Abdomen soft, non-tender, nondistended. No hepato-splenomegaly , or palpable masses. No guarding. MUSCULOSKELETAL: Upper extremities without clubbing, cyanosis, or edema. Lower extremities with bilateral 2+ pitting edema up to the knee joint. Bilateral calf tenderness. Negative Homans sign bilaterally. NEUROLOGICAL: Awake and alert. Motor and sensory grossly within normal limits. Five out of 5 muscle strength in all muscle groups. Normal speech. Adela Gilliland MD R1 Aug 13, 2017 13:12
--- NOTE | 2017-08-13 19:42 | EKG ---
Date Performed: 08/12/2017 Time Performed: 20:40:56 PTAGE: 56 years EKG: Sinus rhythm MODERATE T-WAVE ABNORMALITY, CONSIDER ANTEROLATERAL ISCHEMIA ABNORMAL ECG Since the prior tracing, t here has been no significant change PREVIOUS TRACING : 08/12/2017 10.34 DOCTOR: Navi Anders Interpretating Date/Time 08/13/2017 19:41:54
--- NOTE | 2017-08-13 21:17 | EKG ---
Date Performed: 08/12/2017 Time Performed: 10:34:56 PTAGE: 56 years EKG: SINUS TACHYCARDIA MODERATE T-WAVE ABNORMALITY, CONSIDER LATERAL ISCHEMIA, ALTHOUGH CHANGES SEEM SIMILAR BUT SLIGHTLY IMPROVED FROM THE PRIOR ABNORMAL ECG PREVIOUS TRACING : 08/12/2017 01.21 DOCTOR: Navi Anders Interpretating Date/Time 08/13/2017 21:16:53
== END 2017-08-13 15:15 | disposition home or self-care (01) | DRG 281 ==
LOC: NEPE 01:07 → NEDA 02:38 → UNDOADMIN 02:38 → NEDA 03:37 → INTOOBSV 03:37 → NEPFCDU 03:57 → OBSVTOIN 09:58 → N04A 17:07
PROVIDERS: ADMIT Family Medicine; ATTEND Family Medicine
PROC: B2111ZZ Fluoroscopy of Multiple Coronary Arteries using Low Osmolar Contrast (ICD-10-PCS; principal; 2017-08-13 13:45)
DX: I21.4 Non-ST elevation (NSTEMI) myocardial infarction (principal); J98.11 Atelectasis; Z99.81 Dependence on supplemental oxygen; I11.9 Hypertensive heart disease without heart failure; R60.0 Localized edema; J44.9 Chronic obstructive pulmonary disease, unspecified; F10.129 Alcohol abuse with intoxication, unspecified; I05.9 Rheumatic mitral valve disease, unspecified; D53.9 Nutritional anemia, unspecified; M19.90 Unspecified osteoarthritis, unspecified site; F17.210 Nicotine dependence, cigarettes, uncomplicated; F32.9 Major depressive disorder, single episode, unspecified; F41.9 Anxiety disorder, unspecified; F64.9 Gender identity disorder, unspecified; Y90.8 Blood alcohol level of 240 mg/100 ml or more; Z88.0 Allergy status to penicillin; Z91.013 Allergy to seafood; Z96.643 Presence of artificial hip joint, bilateral
CPT/HCPCS: 71045; 80048; 80053; 80061; 80307; 82550; 83735; 83880; 84484; 85025; 85027; 85610; 85730; 87804; 93005; 93454; 93970; 94150; 94664; 96374; 99152; C1769; C1893; J1644; J1720; J1940; J2250; J3010; Q9967

== ENCOUNTER 2017-08-21 15:59 | Emergency (ER) | payer OTHER ==
[~2017-08-21] VITALS: Ht 167.6 cm; Wt 54.5 kg
[~2017-08-21 15:59] MED LIST changes: +ASA325 PO; +ATOR40TA16 PO; +COMMODE 3-IN-11 MIS; -ENAL10TA PO; +METO25TA3 PO; +WALKER WHEELS/F1 MIS
[2017-08-21 16:03] VITALS: BP 146/91; PULSE 98; RESP 12; TEMP 98.2; O2SAT 98
[2017-08-21] MEDS ORDERED: FUROSEMIDE 40 MG/4 ML VIAL IV PUSH ONE (17:00)
[2017-08-21] MEDS ORDERED: ONDANSETRON HCL 4 MG/2 ML VIAL IV PUSH ONE (17:00)
[2017-08-21] MEDS ORDERED: MORPHINE SULFATE 2 MG/ML INJ IV PUSH ONE (17:00)
[2017-08-21 17:36] VITALS: RESP 20; O2SAT 100
--- NOTE | 2017-08-21 17:41 | PD ---
HPI Chief Complaint: Edema Time Seen by Provider: 16:43 Travel History International Travel<30 days: No Contact w/Intl Traveler<30days: No Traveled to known affect area: No History of Present Illness HPI 56-year-old female that presents to the ED for evaluation of lower leg edema bilaterally. Per patient she's had this for about 2-3 days that is worsening. Patient has history of lower leg edema in the past and was actually recently admitted to the hospital for about 2 weeks but she had a heart cath essentially unremarkable other than for possible CHF. Patient has not had any stents. She is a transgender patient (genetically male -> female). She does have a history of smoking as well as alcohol use. Denies any chest pain but states having some shortness of breath with exertion which has not changed from prior. She does use oxygen at home. She is concerned about the discoloration of the legs as well as the leg swelling. Per patient she doesn't take any Lasix. She continues to smoke. No urinary or bowel movement issues. Per patient the pain is 8 out of 10 and gets worse with weightbearing. Allergies to penicillin. Has not seen anybody for this. 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 PFSH Past Medical History Arthritis: Yes Asthma: Yes Autoimmune Disease: No Blood Disorders: No Anxiety: Yes Depression: Yes Heart Rhythm Problems: No Cancer: No Cardiovascular Problems: Yes High Cholesterol: No Chemotherapy: No Chest Pain: No Congestive Heart Failure: Yes COPD: Yes (home o2) Cerebrovascular Accident: No Diabetes: No Diminished Hearing: No Endocrine: No GERD: No Genitourinary: No Headaches: Yes Hepatitis: No Hiatal Hernia: No Hypertension: Yes Immune Disorder: No Kidney Stones: No Medical other: Yes (HX SILICONE GRANULOMAS (BREASTS)/ HIPS) Musculoskeletal: No Neurologic: Yes (seizures) Psychiatric: Yes Reproductive: Yes (pt has male genitalia) Respiratory: Yes Migraines: No Radiation Therapy: No Renal Failure: No Seizures: Yes Sickle Cell Disease: No Sleep Apnea: No Thyroid Disease: No Ulcer: No Tetanus Vaccination: > 5 Years Influenza Vaccination: No Menopausal: Yes Past Surgical History Abdominal Surgery: No AICD: No Arteriovenous Shunt: No Body Medical Devices: BREASTS Cardiac Surgery: No Ear Surgery: Yes Endocrine Surgery: No Eye Surgery: No Genitourinary Surgery: No Gynecologic Surgery: Yes Insulin Pump: No Joint Replacement: Yes (LEFT HIP & Right Hip) Oral Surgery: Yes (TONSILLECTOMY) Pacemaker: No Thoracic Surgery: Yes (BILATERAL RADICAL MASTECTOMY/ IMPLANTS) Tonsillectomy: Yes Other Surgery: Yes (SEVERAL RECONSTRUCTIONS OF BREAST) Social History Alcohol Use: Yes (DAILY vodka) Tobacco Use: Yes (couple a day) Substance Use: Yes (marijuana every now and then ) Allergies-Medications (Allergen,Severity, Reaction): Coded Allergies: Fish Containing Products (Unverified Allergy, Severe, swelling, 08/21/17) penicillin G (Unverified Allergy, Severe, RASH, SWELLING,DIFFICULTY BREATHING, 08/21/17) Reported Meds & Prescriptions Reported Meds & Active Scripts Active Hydrocodone-Acetaminophen 5-325 mg Tab 1 Tab PO Q6H PRN Potassium Chloride ER (Potassium Chloride) 10 Meq Cap 10 Meq PO DAILY 7 Days Lasix (Furosemide) 20 Mg Tab 20 Mg PO DAILY 7 Days Bactrim DS (Sulfamethoxazole-Trimethoprim) 800-160 Mg Tab 1 Tab PO BID 10 Days Atorvastatin (Atorvastatin Calcium) 40 Mg Tab 40 Mg PO HS Px Aspirin (Aspirin) 325 Mg Tab 325 Mg PO DAILY Metoprolol Tartrate 25 Mg Tab 12.5 Mg PO BID Commode 3-in-1 (Device) 1 Mis Mis Ea .XX DIRECTED Walker with Front Wheels (Device) 1 Mis Mis Ea .XX DIRECTED Ativan (Lorazepam) 1 Mg Tab 1 Mg PO Q8H PRN 7 Days Fluoxetine (Fluoxetine HCl) 20 Mg Capsule 40 Mg PO DAILY Oxygen tank (Oxygen) 1 Ea Tank Liter DARBY.CANULA CONTINUOUS Oxygen Concentrator Portable Gaseous 2 L/min via Nasal Cannula Continuous For 99 months Nebulizer 1 Mis Mis Ea .ROUTE DIRECTED Ventolin Hfa 18 GM Inh (Albuterol Sulfate) 90 Mcg/Act Aer 2 Puff INH Q6H PRN Symbicort Inh (Budesonide/Formoterol Fumarate) 160-4.5 Mcg/Act Aero 2 Puff INH Q12HR Atrovent HFA 12.9 GM Inh (Ipratropium [place]) 17 Mcg/Act Aer 2 Puff INH TID Buspirone (Buspirone HCl) 10 Mg Tab 10 Mg PO BID Review of Systems Except as stated in HPI: all other systems reviewed are Neg Physical Exam Narrative GENERAL: SKIN: Warm and dry. HEAD: Atraumatic. Normocephalic. EYES: Pupils equal and round. No scleral icterus. No injection or drainage. ENT: No nasal bleeding or discharge. Mucous membranes pink and moist. Tongue is midline. No uvula deviation. NECK: Trachea midline. No JVD. CARDIOVASCULAR: Regular rate and rhythm. RESPIRATORY: No accessory muscle use. Clear to auscultation. Breath sounds equal bilaterally. GASTROINTESTINAL: Abdomen soft, non-tender, nondistended. Hepatic and splenic margins not palpable. MUSCULOSKELETAL: Extremities without clubbing, cyanosis, or edema. No obvious deformities. Patient has 2+ pitting edema in the lower extremities bilaterally. No erythema noted especially on the right leg compared to the left. Warm to the touch and very tender. Right worse than left. 2+ pulses bilaterally. Sensation intact bilaterally. NEUROLOGICAL: Awake and alert. No obvious cranial nerve deficits. Motor grossly within normal limits. Five out of 5 muscle strength in the arms and legs. Normal speech. PSYCHIATRIC: Appropriate mood and affect; insight and judgment normal. Data Data Last Documented VS Vital Signs Date Time Temp Pulse Resp B/P (MAP) Pulse Ox O2 Delivery O2 Flow Rate FiO2 08/21/17 17:36 20 100 Nasal Cannula 3.00 08/21/17 16:21 85 08/21/17 16:03 98.2 Orders Orders Electrocardiogram (08/21/17 16:59) Complete Blood Count With Diff (08/21/17 16:59) Basic Metabolic Panel (Bmp) (08/21/17 16:59) B-Type Natriuretic Peptide (08/21/17 16:59) Prothrombin Time / Inr (Pt) (08/21/17 16:59) Act Partial Throm Time (Ptt) (08/21/17 16:59) Blood Culture (08/21/17 16:59) Magnesium (Mg) (08/21/17 16:59) Chest, Single Ap (08/21/17 16:59) Iv Access Insert/Monitor (08/21/17 16:59) Ecg Monitoring (08/21/17 16:59) Oximetry (08/21/17 16:59) Morphine Inj (Morphine Inj) (08/21/17 17:00) Ondansetron Inj (Zofran Inj) (08/21/17 17:00) Us Leg Venous Doppler Bilat (08/21/17 ) Foot, Limited (2vws) (08/21/17 ) Foot, Complete ([id number]) (08/21/17 ) Furosemide Inj (Lasix Inj) (08/21/17 17:00) Hal Bandage (08/21/17 19:12) Clindamycin 600 Mg/Ns Premix (Cleocin 60 (08/21/17 19:15) Ed Discharge Order (08/21/17 19:27) Labs Laboratory Tests Test 08/21/17 17:05 08/21/17 18:00 White Blood Count 8.6 TH/MM3 Red Blood Count 3.04 MIL/MM3 Hemoglobin 11.0 GM/DL Hematocrit 32.0 % Mean Corpuscular Volume 105.1 FL Mean Corpuscular Hemoglobin 36.1 PG Mean Corpuscular Hemoglobin Concent 34.3 % Red Cell Distribution Width 17.9 % Platelet Count 329 TH/MM3 Mean Platelet Volume 6.8 FL Neutrophils (%) (Auto) 71.0 % Lymphocytes (%) (Auto) 20.1 % Monocytes (%) (Auto) 8.0 % Eosinophils (%) (Auto) 0.4 % Basophils (%) (Auto) 0.5 % Neutrophils # (Auto) 6.1 TH/MM3 Lymphocytes # (Auto) 1.7 TH/MM3 Monocytes # (Auto) 0.7 TH/MM3 Eosinophils # (Auto) 0.0 TH/MM3 Basophils # (Auto) 0.0 TH/MM3 CBC Comment DIFF FINAL Differential Comment Blood Urea Nitrogen 9 MG/DL Creatinine 0.63 MG/DL Random Glucose 97 MG/DL Calcium Level 8.9 MG/DL Magnesium Level 1.6 MG/DL Sodium Level 135 MEQ/L Potassium Level 4.0 MEQ/L Chloride Level 97 MEQ/L Carbon Dioxide Level 26.8 MEQ/L Anion Gap 11 MEQ/L Estimat Glomerular Filtration Rate 98 ML/MIN B-Type Natriuretic Peptide 589 PG/ML Prothrombin Time 10.2 SEC Prothromb Time International Ratio 1.0 RATIO Activated Partial Thromboplast Time 24.6 SEC MDM Medical Decision Making Medical Screen Exam Complete: Yes Emergency Medical Condition: Yes Medical Record Reviewed: Yes Interpretation(s) CBC & BMP Diagram 08/21/17 17:05 Calcium Level 8.9, Magnesium Level 1.6 Last Impressions Chest X-Ray 08/21/17 0882 Signed Impressions: Service Date/Time: Monday, August 21, 2017 17:33 - CONCLUSION: No focal abnormality seen. Fernie Lara MD Lower Extremity Ultrasound 08/21/17 0000 Signed Impressions: Service Date/Time: Monday, August 21, 2017 17:52 - CONCLUSION: Normal examination. No evidence of DVT Doug Patton MD Foot X-Ray 08/21/17 0000 Signed Impressions: Service Date/Time: Monday, August 21, 2017 17:35 - CONCLUSION: 1. Mild dorsal soft tissue thickening. 2. The osseous structures are grossly intact radiographically. Fernie Lara MD Foot X-Ray 08/21/17 0000 Signed Impressions: Service Date/Time: Monday, August 21, 2017 17:37 - CONCLUSION: Mild dorsal soft tissues thickening. The osseous structures are grossly intact. Fernie Lara MD BNP in the 500s [facility] Differential Diagnosis Cellulitis versus CHF versus peripheral edema versus DVT versus lymphangitis Narrative Course 56-year-old female that presents to the ED for evaluation of lower leg edema. Patient was properly examined and was found to have signs and symptoms of unclear etiology but concerning for CHF versus peripheral edema versus cellulitis versus DVT. Labs and imaging ordered. Patient was given pain medication as well as IV Lasix. Labs and imaging showed no sign of acute disease. Case was discussed in my attending Dr. Bhkata who evaluated the patient himself and agrees the patient likely has early cellulitis with what appears to be pitting edema. Likely secondary to vein insufficiency and mild CHF. At this time patient does not appear to be in acute distress. Her vitals are within normal limits. My attending recommends trial of antibiotics, low- dose Lasix as well as pain control. Patient was given Hal wrap. Told to follow with PCP. See ED for worsening symptoms. Diagnosis Primary Impression: Cellulitis Qualified Codes: L03.119 - Cellulitis of unspecified part of limb Additional Impressions: Peripheral edema Lower extremity edema Patient Instructions: General Instructions Additional Instructions: Take medications as prescribed. Follow with her doctor. See ED for worsening symptoms. Use compression stockings. Med/Other Pt SpecificInfo: Prescription(s) given Scripts Hydrocodone-Acetaminophen (Hydrocodone-Acetaminophen) 5-325 mg Tab 1 TAB PO Q6H Y for PAIN, #12 TAB 0 Refills Prov: Cait Daniels MD 08/21/17 Potassium Chloride ER (Potassium Chloride ER) 10 Meq Cap 10 MEQ PO DAILY for Electrolyte Replacement for 7 Days, #7 CAP 0 Refills Prov: Cait Daniels MD 08/21/17 Furosemide (Lasix) 20 Mg Tab 20 MG PO DAILY for 7 Days, #7 TAB 0 Refills Prov: Cait Daniels MD 08/21/17 Sulfamethoxazole-Trimethoprim (Bactrim DS) 800-160 Mg Tab 1 TAB PO BID for Infection for 10 Days, #20 TAB 0 Refills Prov: Cait Daniels MD 08/21/17 Disposition: 01 DISCHARGE HOME Condition: Stable Donell Hamilton Aug 21, 2017 17:41
[2017-08-21 17:45] LABS: AUTOMATED NEUTROPHIL # 6.1 TH/MM3 (1.8-7.7); BASOPHIL % 0.5 % (0.0-2.0); EOSINOPHIL % 0.4 % (0.0-4.0); LYMPH % 20.1 % (9.0-44.0); LYMPHOCYTE # 1.7 TH/MM3 (1.0-4.8); MEAN CELL VOLUME 105.1 FL (80.0-100.0); MEAN CORPUSCULAR HEMOGLOBIN 36.1 PG (27.0-34.0); MEAN CORPUSCULAR HGB CONC 34.3 % (32.0-36.0); MEAN PLATELET VOLUME 6.8 FL (7.0-11.0); MONOCYTE # 0.7 TH/MM3 (0-0.9); PLATELET COUNT 329 TH/MM3 (150-450); RED BLOOD COUNT 3.04 MIL/MM3 (4.00-5.30); RED CELL DISTRIBUTION WIDTH 17.9 % (11.6-17.2); WHITE BLOOD COUNT 8.6 TH/MM3 (4.0-11.0)
--- NOTE | 2017-08-21 18:03 | RADRPT ---
EXAM DATE/TIME: 08/21/2017 17:33 [facility] COMPARISON: CHEST SINGLE AP, August 12, 2017, 1:27. INDICATIONS : Short of breath. MEDICAL HISTORY : Congestive heart failure. Arthritis. Osteoporosis. Seizures. Palpitations. HTN.COPD. Asthma. Dyspnea. Gait problems. Depression. Anxiety. Tobacco use. SURGICAL HISTORY : Tonsillectomy. Bilateral radical mastectomy/implants. Bilateral hip replacements. ENCOUNTER: Initial ACUITY: 1 day PAIN SCORE: 0/10 LOCATION: Bilateral chest FINDINGS: Suboptimal technique with portions of the upper lungs completely blacked out. A single view of the c hest demonstrates the lungs to be symmetrically aerated without evidence of mass, infiltrate or effus ion. The cardiomediastinal contours are unremarkable. Osseous structures are intact. CONCLUSION: No focal abnormality seen. Fernie Lara MD on August 21, 2017 at 18:00 Board Certified Radiologist. This report was verified electronically.
--- NOTE | 2017-08-21 18:11 | RADRPT ---
EXAM DATE/TIME: 08/21/2017 17:35 [facility] COMPARISON: FOOT RIGHT COMPLETE ([id number]), March 31, 2015, 16:56. INDICATIONS : Pain. Swelling. MEDICAL HISTORY : Congestive heart failure. Arthritis. Osteoporosis. Seizures. Palpitations. HTNCOPD. Asthma. Dyspnea. Gait problems. Depression. Anxiety. Tobacco use.. SURGICAL HISTORY : Tonsillectomy. Bilateral radical mastectomy/implants. Bilateral hip replacements. ENCOUNTER: Initial ACUITY: 1 week PAIN SCORE: 10/10 LOCATION: Right Foot. FINDINGS: Three view examination of the right foot demonstrates no evidence of fracture or dislocation. The t arsal bones appear intact. The interphalangeal and metatarsophalangeal joints are intact. The calca neus is intact. Mild dorsal soft tissue thickening in the mid foot. No radiopaque foreign bodies. Bony mineralization is normal. CONCLUSION: 1. Mild dorsal soft tissue thickening. 2. The osseous structures are grossly intact radiographically. Fernie Lara MD on August 21, 2017 at 18:07 Board Certified Radiologist. This report was verified electronically.
--- NOTE | 2017-08-21 18:12 | RADRPT ---
EXAM DATE/TIME: 08/21/2017 17:37 [facility] COMPARISON: No previous studies available for comparison. INDICATIONS : Pain. Swelling. MEDICAL HISTORY : Congestive heart failure. Arthritis. Osteoporosis. Seizures. Palpitations. HTN.COPD. Asthma. Dyspnea. Gait problems. Depression. Anxiety. Tobacco use.. SURGICAL HISTORY : Tonsillectomy. Bilateral radical mastectomy/implants. Bilateral hip replacements. ENCOUNTER: Initial ACUITY: 1 week PAIN SCORE: 10/10 LOCATION: Left Foot. FINDINGS: Two view examination of the left foot demonstrates no evidence of fracture or dislocation.. The calc aneus is intact. Mild dorsal soft tissue thickening. No radiopaque foreign bodies. Bony mineraliza tion is normal. CONCLUSION: Mild dorsal soft tissues thickening. The osseous structures are grossly intact. Fernie Lara MD on August 21, 2017 at 18:09 Board Certified Radiologist. This report was verified electronically.
[2017-08-21 18:24] LABS: BICARBONATE 26.8 MEQ/L (21.0-32.0); CALCIUM 8.9 MG/DL (8.5-10.1); CREATININE 0.63 MG/DL (0.50-1.00); MAGNESIUM 1.6 MG/DL (1.5-2.5)
--- NOTE | 2017-08-21 18:24 | RADRPT ---
EXAM DATE/TIME: 08/21/2017 17:52 [facility] COMPARISON: No previous studies available for comparison. INDICATIONS : Bilateral leg swelling. MEDICAL HISTORY : Congestive heart failure. Arthritis. Osteoporosis. Seizures. Palpitations. HTN. COPD. Asthma. Dyspnea . Gait problems. Depression. Anxiety. Tobacco use. SURGICAL HISTORY : Tonsillectomy. Bilateral radical mastectomy/implants. Bilateral hip replacements. ENCOUNTER: Subsequent ACUITY: 1 month PAIN SCORE: 7/10 LOCATION: Bilateral legs. TECHNIQUE: Venous ultrasound of the left and right leg was performed from the inguinal ligament to the proximal calf. Real-time, color Doppler and spectral tracing, compression and augmentation techniques were us ed. FINDINGS: RIGHT LEG: There is normal compressibility of the deep venous system from the inguinal region to the proximal ca lf. No echogenic clot is seen in the lumen of the common femoral, femoral, popliteal, and posterior tibial veins. There is a normal response of the venous system to proximal and distal augmentation an d respiration. Iliac vein open and patent LEFT LEG: There is normal compressibility of the deep venous system from the inguinal region to the proximal ca lf. No echogenic clot is seen in the lumen of the common femoral, femoral, popliteal, and posterior tibial veins. There is a normal response of the venous system to proximal and distal augmentation an d respiration. Iliac vein with normal flow CONCLUSION: Normal examination. No evidence of DVT Doug Patton MD on August 21, 2017 at 18:21 Board Certified Radiologist. This report was verified electronically.
[2017-08-21 19:07] LABS: PROTHROMBIN TIME - PATIENT 10.2 SEC (9.8-11.6)
[2017-08-21] MEDS ORDERED: CLINDAMYCIN 600 MG/NS PREMIX 50 ML IV ONE (19:15)
[2017-08-21] MEDS ORDERED: BACT800T5 PO (19:23)
[2017-08-21] MEDS ORDERED: HYDR-3516 PO (19:23)
[2017-08-21] MEDS ORDERED: FURO1TAB62 PO (19:23)
[2017-08-21] MEDS ORDERED: POTA10CA PO (19:23)
--- NOTE | 2017-08-21 19:46 | HHI.FF ---
Face to Face Verification Diagnosis: (1) Cellulitis (2) Peripheral edema (3) Lower extremity edema Home Health Nursing Order: Medical education Signs/symptoms of disease process Medication education-adverse effect Wound care and dressing changes Nursing assessment with vital signs I have seen patient Jannie Bauer on 08/21/17. My clinical findings support the need for the requested home health care services because: Med compliance is questionable Limited ability to care for self Infection w/ risk of complications I certify that my clinical findings support that this patient is homebound because: Unsteady gait/balance Unsafe to leave home unassisted Donell Hamilton Aug 21, 2017 19:46
[2017-08-21 19:53] VITALS: BP 128/89
--- NOTE | 2017-08-22 00:41 | EKG ---
Date Performed: 08/21/2017 Time Performed: 17:54:28 PTAGE: 56 years EKG: Sinus rhythm MODERATE T-WAVE ABNORMALITY, CONSIDER ANTEROLATERAL ISCHEMIA ABNORMAL ECG PREVIOUS TRACING : 08/12/2017 20.40 Since the prior tracing, there has been no significant vega DOCTOR: Jayce Lopez Interpretating Date/Time 08/22/2017 00:40:13
== END 2017-08-21 20:30 | disposition home or self-care (01) ==
LOC: NEPC 15:59
DX: L03.119 Cellulitis of unspecified part of limb (principal); R60.0 Localized edema; J44.9 Chronic obstructive pulmonary disease, unspecified; I11.0 Hypertensive heart disease with heart failure; R94.31 Abnormal electrocardiogram [ECG] [EKG]; R06.02 Shortness of breath
CPT/HCPCS: 71045; 73620; 73630; 80048; 83735; 83880; 85025; 85610; 85730; 87040; 93005; 93970; 96374; 96375; 99285; J1940; J2270; J2405